=== PATIENT | male | born 1940 | race Caucasian/White ===

== ENCOUNTER 2017-01-19 19:26 | Inpatient (IN) | payer MEDICARE, OTHER ==
[~2017-01-19] VITALS: Ht 167.6 cm; Wt 53.5 kg
[~2017-01-19 19:26] MED LIST: ALBU1.257 NEB; ALPR0.25 PO; ATOR80TA PO; BENZ0.5T3 PO; BISA10SU8 RC; CLOP75TA2 PO; CYAN500T4 GT; DEXT1CAP3 PO; FAMO20TA8 PO; FERR134T2 PO; GABA-532 PO; HYDR-552 PO; HYDR25SU33 RC; INSU100C10 SQ; INSU100V7 SQ; IPRA12.9 IH; MEMA5TAB PO; METO25TA6 PO; MIDO5TAB PO; MULT-1185 PO; NITR0.4T SL; SENN8.6T6 PO; SERT50TA12 PO; [UNRECOGNIZED DRUG - CODE] MC; [UNRECOGNIZED DRUG - CODE] PO
[2017-01-19 20:22] LABS: BASOPHILS % (AUTO) 0.2 % (0.0-2.0); EOSINOPHILS % (AUTO) 0.4 % (0.0-6.0); HEMATOCRIT 22 % (39-51); HEMOGLOBIN 7.2 g/dL (13.5-17.5); LYMPHOCYTES # (AUTO) 1.1 /CMM (0.8-4.8); LYMPHOCYTES % (AUTO) 13.6 % (20.0-44.0); MEAN CORPUSCULAR HEMOGLOBIN 31 PG (26.0-33.0); MEAN CORPUSCULAR HGB CONC 33 g/dl (31.0-36.0); MEAN CORPUSCULAR VOLUME 95 fL (80-96); MONOCYTES # (AUTO) 0.5 /CMM (0.1-1.30); MONOCYTES % (AUTO) 6.7 % (2.0-12.0); NEUTROPHILS # (AUTO) 6.5 /CMM (1.8-8.9); NEUTROPHILS % (AUTO) 79.1 % (43.0-81.0); PLATELET COUNT (AUTO) 199 /CMM (150-450); RDW COEFFICIENT OF VARIATION 17.7 (11.5-15.0); RED BLOOD CELL COUNT(AUTO) 2.32 MIL/uL (4.5-6.0); WHITE BLOOD COUNT (AUTO) 8.1 K/uL (4.3-11.0)
[2017-01-19] MEDS ORDERED: IV NS 0.9% 1,000 ML BAG IV ONE (20:30)
[2017-01-19 20:36] LABS: CALCIUM, SERUM 8.3 mg/dL (8.5-10.1); CARBON DIOXIDE 29 mmol/L (21-32); CHLORIDE 101 mmol/L (98-107); CREATININE 0.9 mg/dL (0.6-1.3); GLUCOSE 183 mg/dL (74-106); POTASSIUM 5.4 mmol/L (3.5-5.1); SODIUM SERUM 136 mmol/L (136-145); UREA NITROGEN, BLOOD 16 mg/dL (7-18)
[2017-01-19 20:41] LABS: BILIRUBIN,TOTAL 0.5 mg/dL (0.2-1.0)
[2017-01-19 20:42] LABS: ALANINE AMINOTRANSFERASE < 6 U/L (12-78); ALKALINE PHOSPHATASE 108 U/L (46-116); ASPARTATE AMINOTRANSFERASE 28 U/L (15-37); TOTAL PROTEIN, SERUM 7.9 g/dL (6.4-8.2)
[2017-01-19 20:48] LABS: INR 1.04 (0.87-1.13); PROTHROMBIN TIME 10.8 SECS (9.5-12.7)
[2017-01-19] MEDS ORDERED: IV SET PRIMARY 1 EA INFUS.SET MC ONE (21:30)
[2017-01-19] MEDS ORDERED: IV NS 0.9% 1,000 ML ONE (21:30)
[2017-01-19] MEDS ORDERED: SET RED CAP 1 EA INFUS.SET MC ONE (23:48)
[2017-01-19] MEDS ORDERED: IV NS 0.9% 250 ML IV ONE (23:50)
[2017-01-19] MEDS ORDERED: BLOOD IV SET 1 EA INFUS.SET MC ONE (23:50)
[2017-01-20] VITALS (18 sets, daily range): BP systolic 87–132; BP diastolic 42–98
[2017-01-20] MEDS ORDERED: ATORVASTATIN 10 MG TABLET ONE (00:12)
[2017-01-20] MEDS ORDERED: ALPRAZOLAM 0.25 MG TABLET ONE (00:12)
[2017-01-20 00:26] LABS: RETICULOCYTE COUNT 6.1 % (0.6-2.5)
[2017-01-20 00:45] LABS: FREE PSA 1.93 ng/mL (0.00-45); PROSTATE SPECIFIC ANTIGEN SCR 12.82 ng/mL (0.00-4.00); THYROID STIMULATING HORMONE 1.539 uIU/mL (0.358-3.74)
[2017-01-20] MEDS ORDERED: ACETAMINOPHEN 325 MG TABLET ONE ×2 (01:04→04:27)
[2017-01-20] MEDS: ACETAMINOPHEN 325 MG TABLET PO PRN ×2 (01:19→05:09)
[2017-01-20 06:51] LABS: CALCIUM, SERUM 8.2 mg/dL (8.5-10.1); CREATININE 0.9 mg/dL (0.6-1.3); POTASSIUM 4.3 mmol/L (3.5-5.1)
[2017-01-20 06:52] LABS: BASOPHILS % (AUTO) 0.3 % (0.0-2.0); EOSINOPHILS % (AUTO) 0.3 % (0.0-6.0); LYMPHOCYTES # (AUTO) 1.6 /CMM (0.8-4.8); MEAN CORPUSCULAR HEMOGLOBIN 33 PG (26.0-33.0); MEAN CORPUSCULAR HGB CONC 35 g/dl (31.0-36.0); MEAN CORPUSCULAR VOLUME 95 fL (80-96); MONOCYTES # (AUTO) 0.6 /CMM (0.1-1.30); MONOCYTES % (AUTO) 6.3 % (2.0-12.0); NEUTROPHILS # (AUTO) 7.8 /CMM (1.8-8.9); NEUTROPHILS % (AUTO) 77.1 % (43.0-81.0); PLATELET COUNT (AUTO) 190 /CMM (150-450); RED BLOOD CELL COUNT(AUTO) 2.13 MIL/uL (4.5-6.0); WHITE BLOOD COUNT (AUTO) 10.1 K/uL (4.3-11.0)
[2017-01-20 06:59] LABS: HEMATOCRIT 20 % (39-51)
[2017-01-20] MEDS: BLOOD SUGAR DIAGNOSTIC 1 EACH STRIP IN SCH ×4 (07:21→21:40)
[2017-01-20] MEDS ORDERED: DIVA250T6 PO (07:39)
[2017-01-20] MEDS ORDERED: AMIN30LI4 PO (07:39)
[2017-01-20] MEDS ORDERED: ATOR10TA PO (07:39)
[2017-01-20] MEDS ORDERED: IPRA0.2S9 IH (07:39)
[2017-01-20] MEDS ORDERED: LORA10TA68 PO (07:39)
[2017-01-20] MEDS ORDERED: GABA-534 PO (07:39)
[2017-01-20] MEDS ORDERED: NA P133E RC (07:39)
[2017-01-20] MEDS ORDERED: CLON0.5T4 PO (07:39)
[2017-01-20] MEDS ORDERED: MAG30ORA PO (07:39)
[2017-01-20] MEDS ORDERED: ACET-2605 PO (07:39)
[2017-01-20] MEDS ORDERED: CALC-108 PO (07:39)
[2017-01-20] MEDS ORDERED: ACET-868 PO (07:39)
[2017-01-20] MEDS ORDERED: ALBU2.5V13 IH (07:39)
[2017-01-20] MEDS ORDERED: ZINC220C8 PO (07:39)
[2017-01-20] MEDS ORDERED: ASCO500T9 PO (07:39)
[2017-01-20] MEDS ORDERED: TRAZ-144 PO (07:39)
[2017-01-20] MEDS: ALPRAZOLAM 0.25 MG TABLET PO PRN (08:36)
[2017-01-20 11:49] LABS: APPEARANCE,URINE CLEAR (CLEAR); BILIRUBIN,URINE NEGATIVE (NEGATIVE); BLOOD, URINE NEGATIVE Ery/uL (NEGATIVE); COLOR,URINE YELLOW (YELLOW); KETONES,URINE NEGATIVE (NEGATIVE); LEUKOCYTE ESTERASE ,URINE NEGATIVE (NEGATIVE); NITRITE, URINE NEGATIVE (NEGATIVE); PROTEIN,URINE NEGATIVE (NEGATIVE); UGLUCOSE NEGATIVE (NEGATIVE); UROBILINOGEN,URINE 0.2 EU/dL (0.2)
[2017-01-20] MEDS ORDERED: MAG HYDROX/AL HYDROX/SIMETH 30 ML UDC PO PRN (12:30)
[2017-01-20] MEDS ORDERED: SENNOSIDES 8.6 MG TABLET PO PRN (12:30)
[2017-01-20] MEDS ORDERED: NA PHOS,M-B/NA PHOS,DI-BA 1 EA ENEMA RC PRN (12:30)
[2017-01-20] MEDS ORDERED: HYDROCODONE/APAP 5/325MG 1 EACH TABLET PO PRN (12:30)
[2017-01-20] MEDS ORDERED: MISCELLANEOUS MED 1 EA EA PO PRN (12:30)
[2017-01-20] MEDS ORDERED: ACETAMINOPHEN 325 MG TABLET PO PRN (12:30)
[2017-01-20] MEDS ORDERED: ACETAMINOPHEN ES 500 MG TABLET PO PRN (12:30)
[2017-01-20] MEDS ORDERED: NITROGLYCERIN 0.4 MG/TAB BOTTLE SL PRN (12:30)
[2017-01-20] MEDS: CLOPIDOGREL BISULFATE 75 MG TABLET PO SCH (13:00)
[2017-01-20] MEDS: GABAPENTIN 300 MG CAPSULE PO SCH ×2 (16:56→17:20)
[2017-01-20] MEDS: DIVALPROEX SODIUM 250 MG TABLET.DR PO SCH (17:20)
[2017-01-20] MEDS: TRAZODONE 50 MG TABLET PO SCH (21:35)
[2017-01-20] MEDS: ATORVASTATIN 10 MG TABLET PO SCH (21:35)
[2017-01-20] MEDS: METOPROLOL TARTRATE 25 MG TABLET PO SCH (21:36)
[2017-01-20] MEDS: clonazePAM 0.5 MG TABLET PO SCH (21:39)
[2017-01-20] MEDS ORDERED: ATORVASTATIN 10 MG TABLET PO SCH (22:00)
[2017-01-21] MEDS: BLOOD SUGAR DIAGNOSTIC 1 EACH STRIP IN SCH ×4 (06:26→21:24)
[2017-01-21 07:30] LABS: BASOPHILS % (AUTO) 0.3 % (0.0-2.0); EOSINOPHILS # (AUTO) 0.3 /CMM (0.0-0.7); EOSINOPHILS % (AUTO) 3.8 % (0.0-6.0); HEMATOCRIT 30 % (39-51); HEMOGLOBIN 10.2 g/dL (13.5-17.5); LYMPHOCYTES # (AUTO) 1.5 /CMM (0.8-4.8); LYMPHOCYTES % (AUTO) 19.1 % (20.0-44.0); MEAN CORPUSCULAR HEMOGLOBIN 31 PG (26.0-33.0); MEAN CORPUSCULAR HGB CONC 35 g/dl (31.0-36.0); MEAN CORPUSCULAR VOLUME 90 fL (80-96); MONOCYTES # (AUTO) 0.6 /CMM (0.1-1.30); MONOCYTES % (AUTO) 7.8 % (2.0-12.0); NEUTROPHILS # (AUTO) 5.4 /CMM (1.8-8.9); PLATELET COUNT (AUTO) 194 /CMM (150-450); RDW COEFFICIENT OF VARIATION 18.6 (11.5-15.0); RED BLOOD CELL COUNT(AUTO) 3.27 MIL/uL (4.5-6.0); WHITE BLOOD COUNT (AUTO) 7.8 K/uL (4.3-11.0)
[2017-01-21 07:51] LABS: CALCIUM, SERUM 8.4 mg/dL (8.5-10.1); CREATININE 0.8 mg/dL (0.6-1.3); POTASSIUM 4.6 mmol/L (3.5-5.1)
[2017-01-21 08:00] VITALS: BP 103/68
[2017-01-21] MEDS: DIVALPROEX SODIUM 250 MG TABLET.DR PO SCH ×2 (08:19→17:34)
[2017-01-21] MEDS: PROSOURCE / PROSTAT (PYXIS) 30 ML UDC PO SCH (08:19)
[2017-01-21] MEDS: CLOPIDOGREL BISULFATE 75 MG TABLET PO SCH (08:20)
[2017-01-21] MEDS: METOPROLOL TARTRATE 25 MG TABLET PO SCH ×2 (08:20→21:00)
[2017-01-21] MEDS: LORATADINE 10 MG TABLET PO SCH (08:21)
[2017-01-21] MEDS: ASCORBIC ACID 500 MG TABLET PO SCH (08:21)
[2017-01-21] MEDS: GABAPENTIN 300 MG CAPSULE PO SCH ×3 (08:21→17:34)
[2017-01-21] MEDS: CALCIUM CARB 250MG /VITAMIN D 1 UDTAB PO SCH (08:21)
[2017-01-21] MEDS: SLOW FE 1 TAB PO SCH (08:21)
[2017-01-21] MEDS: ZINC SULFATE 220 MG CAPSULE PO SCH (08:21)
[2017-01-21] MEDS: FOLIC ACID 1 MG TABLET PO SCH (08:29)
[2017-01-21] MEDS: clonazePAM 0.5 MG TABLET PO SCH ×2 (08:29→21:00)
[2017-01-21 08:58] LABS: CARCINOEMBRYONIC AG (CEA) 2.9 ng/mL (0.0-4.7)
[2017-01-21] MEDS ORDERED: PROSOURCE / PROSTAT (PYXIS) 30 ML UDC GT SCH (09:00)
[2017-01-21] MEDS ORDERED: IV NS 0.9% 250 ML IV ONE (10:15)
[2017-01-21] MEDS ORDERED: IOHEXOL-300 100 ML VIAL IV ONE (10:15)
[2017-01-21] MEDS ORDERED: CT SWABBABLE VALVE TRANS SET 1 EA INFUS.SET MC ONE (10:15)
[2017-01-21 16:00] VITALS: BP 98/56
[2017-01-21] MEDS: ALPRAZOLAM 0.25 MG TABLET PO PRN (17:34)
[2017-01-21] MEDS: MUPIROCIN OINT 2% 22 GM TUBE SCH ×2 (17:37→21:35)
[2017-01-21] MEDS ORDERED: DEXTROSE 50%-WATER 50 ML DISP.SYRIN IV PRN (18:30)
[2017-01-21 20:00] VITALS: BP 99/59
[2017-01-21 20:10] VITALS: BP 99/59
[2017-01-21] MEDS: INSULIN REGULAR, HUMAN 100 UNIT/ML 3 ML VIAL SQ PRN (21:21)
[2017-01-21] MEDS: ATORVASTATIN 10 MG TABLET PO SCH (21:25)
[2017-01-21] MEDS: TRAZODONE 50 MG TABLET PO SCH (21:27)
[2017-01-22] MEDS: BLOOD SUGAR DIAGNOSTIC 1 EACH STRIP IN SCH ×4 (07:02→21:34)
[2017-01-22 08:00] VITALS: BP_SYST 106; BP_DIAS 58; BP_DIAS 59
[2017-01-22] MEDS: METOPROLOL TARTRATE 25 MG TABLET PO SCH ×2 (08:22→21:00)
[2017-01-22] MEDS: GABAPENTIN 300 MG CAPSULE PO SCH ×3 (09:24→17:47)
[2017-01-22] MEDS: ZINC SULFATE 220 MG CAPSULE PO SCH (09:24)
[2017-01-22] MEDS: CLOPIDOGREL BISULFATE 75 MG TABLET PO SCH (09:24)
[2017-01-22] MEDS: clonazePAM 0.5 MG TABLET PO SCH ×2 (09:24→21:25)
[2017-01-22] MEDS: LORATADINE 10 MG TABLET PO SCH (09:24)
[2017-01-22] MEDS: Z GUARD REMEDY 2 OZ OINT TP SCH ×2 (09:24→12:36)
[2017-01-22] MEDS: ASCORBIC ACID 500 MG TABLET PO SCH (09:24)
[2017-01-22] MEDS: CALCIUM CARB 250MG /VITAMIN D 1 UDTAB PO SCH (09:24)
[2017-01-22] MEDS: FOLIC ACID 1 MG TABLET PO SCH (09:24)
[2017-01-22] MEDS: PROSOURCE / PROSTAT (PYXIS) 30 ML UDC PO SCH (09:24)
[2017-01-22] MEDS: DIVALPROEX SODIUM 250 MG TABLET.DR PO SCH ×2 (09:24→17:47)
[2017-01-22] MEDS: SLOW FE 1 TAB PO SCH (09:24)
[2017-01-22] MEDS: MUPIROCIN OINT 2% 22 GM TUBE SCH ×2 (09:31→21:26)
[2017-01-22] MEDS: IPRATROPIUM NEB FS 0.5 MG/2.5 ML AMPUL.NEB IH PRN (10:45)
[2017-01-22] MEDS: ALBUTEROL FS 2.5 MG/0.5 ML VIAL.NEB IH PRN (10:45)
[2017-01-22] MEDS: ALPRAZOLAM 0.25 MG TABLET PO PRN (12:33)
[2017-01-22] MEDS: INSULIN REGULAR, HUMAN 100 UNIT/ML 3 ML VIAL SQ PRN ×2 (12:35→21:35)
[2017-01-22 16:00] VITALS: BP 98/56
[2017-01-22 16:05] VITALS: BP 105/65
[2017-01-22 16:07] VITALS: BP_SYST 105; BP_SYST 98; BP_DIAS 56; BP_DIAS 65
[2017-01-22 20:00] VITALS: BP 108/55
[2017-01-22] MEDS: TRAZODONE 50 MG TABLET PO SCH (21:25)
[2017-01-22] MEDS: ATORVASTATIN 10 MG TABLET PO SCH (21:25)
[2017-01-23] MEDS: BLOOD SUGAR DIAGNOSTIC 1 EACH STRIP IN SCH ×4 (06:38→21:45)
[2017-01-23 08:00] VITALS: BP 123/76
[2017-01-23] MEDS: Z GUARD REMEDY 2 OZ OINT TP SCH (08:49)
[2017-01-23] MEDS: LORATADINE 10 MG TABLET PO SCH (08:52)
[2017-01-23] MEDS: DIVALPROEX SODIUM 250 MG TABLET.DR PO SCH ×2 (08:53→17:01)
[2017-01-23] MEDS: ZINC SULFATE 220 MG CAPSULE PO SCH (08:53)
[2017-01-23] MEDS: ASCORBIC ACID 500 MG TABLET PO SCH (08:53)
[2017-01-23] MEDS: clonazePAM 0.5 MG TABLET PO SCH ×2 (08:53→21:35)
[2017-01-23] MEDS: CALCIUM CARB 250MG /VITAMIN D 1 UDTAB PO SCH (08:53)
[2017-01-23] MEDS: FOLIC ACID 1 MG TABLET PO SCH (08:53)
[2017-01-23] MEDS: SLOW FE 1 TAB PO SCH (08:53)
[2017-01-23] MEDS: CLOPIDOGREL BISULFATE 75 MG TABLET PO SCH (08:53)
[2017-01-23] MEDS: GABAPENTIN 300 MG CAPSULE PO SCH ×3 (08:53→17:00)
[2017-01-23] MEDS: PROSOURCE / PROSTAT (PYXIS) 30 ML UDC PO SCH (08:53)
[2017-01-23] MEDS: METOPROLOL TARTRATE 25 MG TABLET PO SCH ×2 (08:54→21:00)
[2017-01-23] MEDS: MUPIROCIN OINT 2% 22 GM TUBE SCH ×2 (08:59→21:36)
[2017-01-23] MEDS: IPRATROPIUM NEB FS 0.5 MG/2.5 ML AMPUL.NEB IH PRN (10:27)
[2017-01-23] MEDS: ALBUTEROL FS 2.5 MG/0.5 ML VIAL.NEB IH PRN (10:28)
[2017-01-23] MEDS: INSULIN REGULAR, HUMAN 100 UNIT/ML 3 ML VIAL SQ PRN ×2 (12:33→21:47)
[2017-01-23 16:00] VITALS: BP 142/62
[2017-01-23 19:52] VITALS: BP 110/63
[2017-01-23] MEDS: ATORVASTATIN 10 MG TABLET PO SCH (21:34)
[2017-01-23] MEDS: TRAZODONE 50 MG TABLET PO SCH (21:35)
[2017-01-24] MEDS: ALPRAZOLAM 0.25 MG TABLET PO PRN (00:04)
[2017-01-24] MEDS: IPRATROPIUM NEB FS 0.5 MG/2.5 ML AMPUL.NEB IH PRN ×2 (03:14→15:59)
[2017-01-24] MEDS: ALBUTEROL FS 2.5 MG/0.5 ML VIAL.NEB IH PRN ×2 (03:14→16:00)
[2017-01-24] MEDS: BLOOD SUGAR DIAGNOSTIC 1 EACH STRIP IN SCH ×2 (07:04→12:19)
[2017-01-24] MEDS: INSULIN REGULAR, HUMAN 100 UNIT/ML 3 ML VIAL SQ PRN (07:07)
[2017-01-24 08:00] VITALS: BP 115/68
[2017-01-24 09:00] VITALS: BP 115/68
[2017-01-24] MEDS: METOPROLOL TARTRATE 25 MG TABLET PO SCH (09:00)
[2017-01-24] MEDS: PROSOURCE / PROSTAT (PYXIS) 30 ML UDC PO SCH (09:03)
[2017-01-24] MEDS: MUPIROCIN OINT 2% 22 GM TUBE SCH (09:03)
[2017-01-24] MEDS: ASCORBIC ACID 500 MG TABLET PO SCH (09:04)
[2017-01-24] MEDS: clonazePAM 0.5 MG TABLET PO SCH (09:04)
[2017-01-24] MEDS: ZINC SULFATE 220 MG CAPSULE PO SCH (09:04)
[2017-01-24] MEDS: CLOPIDOGREL BISULFATE 75 MG TABLET PO SCH (09:04)
[2017-01-24] MEDS: CALCIUM CARB 250MG /VITAMIN D 1 UDTAB PO SCH (09:04)
[2017-01-24] MEDS: LORATADINE 10 MG TABLET PO SCH (09:04)
[2017-01-24] MEDS: GABAPENTIN 300 MG CAPSULE PO SCH ×2 (09:04→12:17)
[2017-01-24] MEDS: FOLIC ACID 1 MG TABLET PO SCH (09:04)
[2017-01-24] MEDS: DIVALPROEX SODIUM 250 MG TABLET.DR PO SCH (09:04)
[2017-01-24] MEDS: SLOW FE 1 TAB PO SCH (09:04)
== END 2017-01-24 16:15 | DRG 812 ==
LOC: ER 19:28 → TELE 22:02 → MED 22:12
PROVIDERS: ADMIT Internal Medicine Nephrology; ATTEND Internal Medicine Nephrology
PROC: 30233N1 Transfusion of Nonautologous Red Blood Cells into Peripheral Vein, Percutaneous Approach (ICD-10-PCS; principal; 2017-01-20)
DX: D52.9 Folate deficiency anemia, unspecified (principal); G81.90 Hemiplegia, unspecified affecting unspecified side; E44.1 Mild protein-calorie malnutrition; Z68.1 Body mass index [BMI] 19.9 or less, adult; I25.10 Atherosclerotic heart disease of native coronary artery without angina pectoris; J44.9 Chronic obstructive pulmonary disease, unspecified; E78.5 Hyperlipidemia, unspecified; E11.9 Type 2 diabetes mellitus without complications; I10 Essential (primary) hypertension; F02.80 Dementia in other diseases classified elsewhere, unspecified severity, without behavioral disturbance, psychotic disturbance, mood disturbance, and anxiety; G20 Parkinson's disease; D63.8 Anemia in other chronic diseases classified elsewhere; R53.1 Weakness; F32.9 Major depressive disorder, single episode, unspecified; G40.909 Epilepsy, unspecified, not intractable, without status epilepticus; E78.00 Pure hypercholesterolemia, unspecified; Z79.899 Other long term (current) drug therapy; Z95.1 Presence of aortocoronary bypass graft; I73.9 Peripheral vascular disease, unspecified; I65.23 Occlusion and stenosis of bilateral carotid arteries
CPT/HCPCS: 36415; 71010-TC; 71270-TC; 72194-TC; 74170-TC; 80048-TC; 80076-TC; 81000-TC; 82272-TC; 82306; 82378; 82728-TC; 82746; 82962-TC; 83010; 83540-TC; 83615-TC; 84153-TC; 84154-TC; 84443-TC; 84550-TC; 85025-TC; 85045-TC; 85652-TC; 85730-TC; 86850-TC; 86921-TC; 87040-TC; 87081-TC; 87086-TC; 92611-TC; 94799-TC; 97001-TC; 97110-TC; 97112-TC; 97530-TC; A4606; J1815; J7030; J7050; P9016-BL; Q9967; Z7610

== ENCOUNTER 2017-09-05 12:36 | Inpatient (IN) | payer MEDICARE, OTHER ==
[~2017-09-05] VITALS: Ht 167.6 cm; Wt 62.6 kg
[2017-09-05] VITALS (13 sets, daily range): BP systolic 74–141; BP diastolic 42–68
[~2017-09-05 12:36] MED LIST changes: +ACET-2605 PO; +ACET-868 PO; -ALBU1.257 NEB; +ALBU2.5V13 IH; -ALPR0.25 PO; +AMIN30LI4 PO; +ASCO500T9 PO; +ATOR10TA PO; -ATOR80TA PO; -BENZ0.5T3 PO; -BISA10SU8 RC; +CALC-261 PO; +CLON0.5T4 PO; +CLOP75TA15 PO; -CLOP75TA2 PO; -CYAN500T4 GT; -DEXT1CAP3 PO; +DIVA250T6 PO; -FAMO20TA8 PO; -GABA-532 PO; +GABA-534 PO; -HYDR25SU33 RC; -INSU100C10 SQ; -INSU100V7 SQ; +IPRA0.2S9 IH; -IPRA12.9 IH; +LORA10TA68 PO; +MAG30ORA PO; -MEMA5TAB PO; -MIDO5TAB PO; -MULT-1185 PO; +NA P133E RC; +SENN-167 PO; -SENN8.6T6 PO; -SERT50TA12 PO; +TRAZ-144 PO; +ZINC220C8 PO; -[UNRECOGNIZED DRUG - CODE] MC; -[UNRECOGNIZED DRUG - CODE] PO
--- NOTE | 2017-09-05 12:41 | NUR ---
BIBRA FROM SCR DT SOB. PER REPORT PT WAS STING 88% ON ROOM AIR,. PATIENT IS AWAKE AND ALERT, RECEIVED ON NON REBRETHER SATING 95%. PATIENT NOTED WITH WITH AUDIBLE RALES/ WHEEZING. SKIN IS WARM TO TOUCH AND NON DIAPHORETIC. AFEBRILE. VSS
--- NOTE | 2017-09-05 12:58 | NUR ---
PT. PLACED ON BIPAP DUE TO INCREASED WOB. BIPAP PARAMETERS BELLOW SET ORDER: [id number] EPAP 8 RATE 10 FIO2 100% B/S DIMINISHED BILATERAL. Addendum: 09/05/17 at 1259 by CIREA SOLANO RT Amended: Links added.
[2017-09-05] MEDS ORDERED: DEXAMETHASONE SOD PHOSPHATE 4 MG/ML VIAL IV ONE (13:00)
[2017-09-05] MEDS ORDERED: IPRATROPIUM NEB FS 0.5 MG/2.5 ML AMPUL.NEB NEB ONE (13:00)
[2017-09-05] MEDS ORDERED: ALBUTEROL FS 2.5 MG/0.5 ML VIAL.NEB NEB ONE (13:00)
[2017-09-05] MEDS ORDERED: Magnesium 1GM/D5W 100ML PREMIX 100 ML IV ONE ×2 (13:01→14:01)
[2017-09-05] MEDS ORDERED: DEXAMETHASONE SOD PHOSPHATE 10 MG/ML VIAL ONE (13:02)
[2017-09-05] MEDS ORDERED: IPRATROPIUM NEB FS 0.5 MG/2.5 ML AMPUL.NEB ONE (13:04)
[2017-09-05] MEDS ORDERED: ALBUTEROL FS 2.5 MG/3 ML VIAL.NEB ONE (13:04)
[2017-09-05] MEDS: Magnesium 1GM/D5W 100ML PREMIX 100 ML IV SCH ×2 (13:08→14:00)
[2017-09-05 13:22] LABS: BASOPHILS % (AUTO) 0.4 % (0.0-2.0); EOSINOPHILS # (AUTO) 0.1 /CMM (0.0-0.7); EOSINOPHILS % (AUTO) 0.7 % (0.0-6.0); HEMATOCRIT 41 % (39-51); HEMOGLOBIN 13.8 g/dL (13.5-17.5); LYMPHOCYTES # (AUTO) 1.5 /CMM (0.8-4.8); LYMPHOCYTES % (AUTO) 13.4 % (20.0-44.0); MEAN CORPUSCULAR HEMOGLOBIN 31 PG (26.0-33.0); MEAN CORPUSCULAR HGB CONC 34 g/dl (31.0-36.0); MEAN CORPUSCULAR VOLUME 93 fL (80-96); MONOCYTES # (AUTO) 0.6 /CMM (0.1-1.30); MONOCYTES % (AUTO) 5.2 % (2.0-12.0); NEUTROPHILS # (AUTO) 9.2 /CMM (1.8-8.9); NEUTROPHILS % (AUTO) 80.3 % (43.0-81.0); PLATELET COUNT (AUTO) 218 /CMM (150-450); RED BLOOD CELL COUNT(AUTO) 4.43 MIL/uL (4.5-6.0); WHITE BLOOD COUNT (AUTO) 11.4 K/uL (4.3-11.0)
[2017-09-05 13:35] LABS: CALCIUM, SERUM 8.9 mg/dL (8.5-10.1); CARBON DIOXIDE 32 mmol/L (21-32); CHLORIDE 100 mmol/L (98-107); CREATININE 1.1 mg/dL (0.6-1.3); GLUCOSE 263 mg/dL (74-106); POTASSIUM 4.4 mmol/L (3.5-5.1); SODIUM SERUM 138 mmol/L (136-145); UREA NITROGEN, BLOOD 17 mg/dL (7-18)
[2017-09-05 13:40] LABS: INR 1.11 (0.87-1.13); PROTHROMBIN TIME 11.6 SECS (9.5-12.7); TROPONIN I < 0.017 ng/mL (0.00-0.056)
[2017-09-05 13:46] LABS: ALANINE AMINOTRANSFERASE 16 U/L (12-78); ALKALINE PHOSPHATASE 75 U/L (46-116); ASPARTATE AMINOTRANSFERASE 7 U/L (15-37); B-TYPE NATRIURETIC PEPTIDE 546 PG/ML (0-125); BILIRUBIN,DIRECT 0.1 mg/dL (0.0-0.2); BILIRUBIN,TOTAL 0.4 mg/dL (0.2-1.0); TOTAL PROTEIN, SERUM 8.6 g/dL (6.4-8.2)
[2017-09-05] MEDS ORDERED: ACETAMINOPHEN ES 500 MG TABLET ONE (14:03)
--- NOTE | 2017-09-05 14:28 | NUR ---
DR. IRWIN AT BEDSIDE
--- NOTE | 2017-09-05 14:38 | NUR ---
18 100 rate 10 bipap
[2017-09-05 14:49] LABS: ABG BASE EXCESS 0.4 mmol/L; ABG PCO2 46.5 mmHg (35.0-45.0); ABG PH 7.368 (7.350-7.450); ABG PO2 271.1 mmHg (75.0-100.0); AaDO2 395.4 mmHg; COHb 0.6 % (0.5-1.5); MetHb 0.4 % (0.0-1.5); PEEP,BG 8 cm H2O; SITE, ABG Right Radial; VENT MODE, BG 18/8 100%
[2017-09-05] MEDS ORDERED: BISA10SU8 RC (14:52)
[2017-09-05] MEDS ORDERED: METF500T4 PO (14:52)
[2017-09-05] MEDS ORDERED: PANT40TA2 PO (14:52)
[2017-09-05] MEDS ORDERED: ESCI10TA PO (14:52)
[2017-09-05] MEDS ORDERED: FOLI1TAB16 PO (14:52)
[2017-09-05] MEDS ORDERED: AMIT25TA9 PO (14:52)
[2017-09-05] MEDS ORDERED: ZOLP10TA6 PO (14:52)
[2017-09-05] MEDS ORDERED: MAGN400O6 PO (14:52)
[2017-09-05] MEDS ORDERED: MELA10CA PO (14:52)
--- NOTE | 2017-09-05 15:33 | NUR ---
PATIENT STRONGLY REFUSED SECOND IV INSERTION. MD RIVAS
--- NOTE | 2017-09-05 15:48 | NUR ---
MACERATOR OPERATOR RECEIVED PATIENT FROM THE ER ON A GURNEY. NO ACUTE DISTRESS. STABLE VITAL SINGS. SINUS TACH ON MONITOR. ALERT AND ORIENTED X 3. FAMILY AT BEDSIDE. SEEN BY CASHIERS SUPERVISOR. AFEBRILE. WILL CONTINUE TO MONITOR AND PROVIDE CARE.
--- NOTE | 2017-09-05 15:49 | NUR ---
PATIENT TRANSPORTED TO ICU. VSS
[2017-09-05] MEDS ORDERED: ZOLPIDEM TARTRATE 5 MG TABLET PO PRN (16:00)
[2017-09-05] MEDS ORDERED: MAGNESIUM HYDROXIDE 30 ML UDC PO PRN (16:00)
[2017-09-05] MEDS ORDERED: HYDROCODONE/APAP 5/325MG 1 EACH TABLET PO PRN (16:00)
[2017-09-05] MEDS ORDERED: MAG HYDROX/AL HYDROX/SIMETH 30 ML UDC PO PRN (16:00)
[2017-09-05] MEDS ORDERED: Z GUARD REMEDY 2 OZ OINT TP PRN (16:00)
[2017-09-05] MEDS ORDERED: ONDANSETRON HCL/PF 4 MG/2 ML VIAL IVP PRN (16:00)
[2017-09-05] MEDS ORDERED: FUROSEMIDE 40 MG/4 ML VIAL IV ONE (16:00)
[2017-09-05] MEDS ORDERED: ACETAMINOPHEN 325 MG TABLET PO PRN (16:00)
[2017-09-05] MEDS ORDERED: MORPHINE SULFATE INJ 4 MG/ML DISP.SYRIN IV PRN (17:00)
[2017-09-05] MEDS ORDERED: FEE PK DOSING 1 MIN EA MC ONE (17:04)
[2017-09-05] MEDS: IPRATROPIUM NEB FS 0.5 MG/2.5 ML AMPUL.NEB NEB SCH ×2 (17:09→20:16)
[2017-09-05] MEDS: ALBUTEROL HALF STRENGTH 1.25 MG/3 ML VIAL.NEB NEB SCH ×2 (17:09→20:16)
[2017-09-05] MEDS: IV D5/ 0.9% NACL 1,000 ML IV PRN (17:34)
[2017-09-05] MEDS: methylPREDNISolone SOD SUCC 125 MG/2ML VIAL IV SCH ×2 (17:45→21:38)
[2017-09-05] MEDS: VANCOMYCIN 0.75 GM in IV D5W 250 ML IV SCH (19:12)
[2017-09-05] MEDS ORDERED: IV NS 0.9% 500 ML IV STA (19:54)
[2017-09-05] MEDS: LEVOFLOXACIN 750 MG /D5W 150ML 150 ML IV SCH (20:45)
[2017-09-05] MEDS: ZOSYN IVPB 3.375 G in IV D5W 50ml IV SCH (20:46)
[2017-09-05] MEDS ORDERED: IV NS 0.9% 500 ML IV ONE ×2 (21:00→23:00)
[2017-09-06] VITALS (43 sets, daily range): BP systolic 81–137; BP diastolic 42–66
[2017-09-06] MEDS: ALBUTEROL HALF STRENGTH 1.25 MG/3 ML VIAL.NEB NEB SCH ×7 (00:06→23:11)
[2017-09-06] MEDS: IPRATROPIUM NEB FS 0.5 MG/2.5 ML AMPUL.NEB NEB SCH ×7 (00:06→23:11)
[2017-09-06] MEDS: ZOSYN IVPB 3.375 G in IV D5W 50ml IV SCH ×4 (01:27→17:10)
[2017-09-06] MEDS ORDERED: NOREPINEPHRINE 4 MG/4 ML AMPUL IV ONE (01:59)
[2017-09-06] MEDS ORDERED: NOREPINEPHRINE 8 MG in IV D5W 500 ML IV PRN ×5 (02:00→18:00)
[2017-09-06 05:46] LABS: BASOPHILS % (AUTO) 0.1 % (0.0-2.0); HEMATOCRIT 34 % (39-51); HEMOGLOBIN 11.6 g/dL (13.5-17.5); LYMPHOCYTES # (AUTO) 0.7 /CMM (0.8-4.8); LYMPHOCYTES % (AUTO) 5.6 % (20.0-44.0); MEAN CORPUSCULAR HEMOGLOBIN 31 PG (26.0-33.0); MEAN CORPUSCULAR HGB CONC 34 g/dl (31.0-36.0); MEAN CORPUSCULAR VOLUME 92 fL (80-96); MONOCYTES # (AUTO) 0.2 /CMM (0.1-1.30); NEUTROPHILS % (AUTO) 92.3 % (43.0-81.0); PLATELET COUNT (AUTO) 193 /CMM (150-450); RDW COEFFICIENT OF VARIATION 15.1 (11.5-15.0); RED BLOOD CELL COUNT(AUTO) 3.71 MIL/uL (4.5-6.0); WHITE BLOOD COUNT (AUTO) 11.9 K/uL (4.3-11.0)
[2017-09-06 05:58] LABS: INR 1.15 (0.87-1.13)
[2017-09-06 06:06] LABS: ALANINE AMINOTRANSFERASE 17 U/L (12-78); ALBUMIN 2.3 g/dL (3.4-5.0); ALKALINE PHOSPHATASE 56 U/L (46-116); AMYLASE 25 U/L (25-115); ASPARTATE AMINOTRANSFERASE 12 U/L (15-37); BILIRUBIN,TOTAL 0.5 mg/dL (0.2-1.0); CALCIUM, SERUM 7.8 mg/dL (8.5-10.1); CARBON DIOXIDE 24 mmol/L (21-32); CHLORIDE 105 mmol/L (98-107); LIPASE 75 U/L (73-393); MAGNESIUM 1.9 mg/dL (1.8-2.4); PHOSPHORUS 1.7 mg/dL (2.5-4.9); POTASSIUM 4.2 mmol/L (3.5-5.1); SODIUM SERUM 138 mmol/L (136-145); TOTAL PROTEIN, SERUM 7.1 g/dL (6.4-8.2); UREA NITROGEN, BLOOD 18 mg/dL (7-18)
[2017-09-06 06:16] LABS: CHOLESTEROL 143 mg/dL (<200); CREATINE KINASE MB 1.2 ng/mL (0-3.6); HDL CHOLESTEROL 37 mg/dL (40-60); LDL 93 mg/dL (0-99); THYROID STIMULATING HORMONE 0.514 uIU/mL (0.358-3.74); TRIGLYCERIDES 73 mg/dL (30-150)
[2017-09-06] MEDS: methylPREDNISolone SOD SUCC 125 MG/2ML VIAL IV SCH ×3 (06:16→20:58)
[2017-09-06] MEDS: VANCOMYCIN 0.75 GM in IV D5W 250 ML IV SCH ×2 (06:19→17:10)
[2017-09-06 06:24] LABS: GLUCOSE 422 mg/dL (74-106)
[2017-09-06 07:05] LABS: IRON, SERUM 20 ug/dl (50-175); TOTAL IRON BINDING CAPACITY 171 ug/dl (250-450)
[2017-09-06] MEDS ORDERED: DEXTROSE 50%-WATER 50 ML DISP.SYRIN IV PRN (07:30)
--- NOTE | 2017-09-06 07:45 | NUR ---
ICU/RN PT IS IN THE BED ON 5L N/C SAT O2-100%.ON LEVOPHED AT 3MCG.AFEBRILE.NO PAIN REPORTED AT THIS TIME.[id number].INCONTINENT DIAPER IS ON.REDNESS ON KRYSTEN AREA AND LOWER BACK NOTED.PT IS AWAKE,ALERT AND XOGYCMSP-4-0.REPOSITION FOR COMFORT.
[2017-09-06] MEDS: PANTOPRAZOLE 40 MG TABLET.DR PO SCH (08:34)
[2017-09-06] MEDS: BLOOD SUGAR DIAGNOSTIC 1 EACH STRIP VI SCH ×4 (08:34→21:27)
[2017-09-06] MEDS: *INSULIN REGULAR(HUMULIN R)HUM 100 UNIT/ML VIAL SQ PRN ×3 (08:36→21:24)
--- NOTE | 2017-09-06 09:10 | NUR ---
ICU/RN DUE MEDS ARE GIVEN ORDERED.PT PLACED ON 3L N/C SAT O2-100%.PT EATS 50% FROM HIS MEAL TRAY.CONTINUE MONITORING.
[2017-09-06] MEDS: IV D5/ 0.9% NACL 1,000 ML IV PRN (11:35)
[2017-09-06] MEDS ORDERED: K PHOS NEUTRAL 250 MG TABLET PO ONE (14:30)
[2017-09-06] MEDS: IV NS 0.9% 1,000 ML IV PRN (14:35)
[2017-09-06] MEDS: CLOPIDOGREL BISULFATE 75 MG TABLET PO SCH (14:43)
[2017-09-06] MEDS: INSULIN REGULAR, HUMAN 100 UNIT/ML 3 ML VIAL SQ PRN (18:29)
[2017-09-06] MEDS: clonazePAM 0.5 MG TABLET PO SCH (20:58)
[2017-09-06] MEDS: ZOLPIDEM TARTRATE 10 MG TABLET PO PRN (21:27)
[2017-09-06] MEDS: ATORVASTATIN 10 MG TABLET PO SCH (21:27)
[2017-09-07] VITALS (36 sets, daily range): BP systolic 83–145; BP diastolic 47–82
[2017-09-07] MEDS: ZOSYN IVPB 3.375 G in IV D5W 50ml IV SCH ×2 (00:28→05:21)
[2017-09-07] MEDS: IPRATROPIUM NEB FS 0.5 MG/2.5 ML AMPUL.NEB NEB SCH ×6 (03:12→23:48)
[2017-09-07] MEDS: ALBUTEROL HALF STRENGTH 1.25 MG/3 ML VIAL.NEB NEB SCH ×6 (03:13→23:48)
[2017-09-07] MEDS: methylPREDNISolone SOD SUCC 125 MG/2ML VIAL IV SCH ×3 (04:58→20:36)
[2017-09-07 05:18] LABS: HEMATOCRIT 31 % (39-51); HEMOGLOBIN 10.7 g/dL (13.5-17.5); LYMPHOCYTES # (AUTO) 0.7 /CMM (0.8-4.8); LYMPHOCYTES % (AUTO) 6.5 % (20.0-44.0); MEAN CORPUSCULAR HEMOGLOBIN 32 PG (26.0-33.0); MEAN CORPUSCULAR HGB CONC 34 g/dl (31.0-36.0); MEAN CORPUSCULAR VOLUME 92 fL (80-96); MONOCYTES # (AUTO) 0.4 /CMM (0.1-1.30); MONOCYTES % (AUTO) 3.7 % (2.0-12.0); NEUTROPHILS # (AUTO) 9.8 /CMM (1.8-8.9); NEUTROPHILS % (AUTO) 89.8 % (43.0-81.0); PLATELET COUNT (AUTO) 159 /CMM (150-450); RDW COEFFICIENT OF VARIATION 15.1 (11.5-15.0); RED BLOOD CELL COUNT(AUTO) 3.38 MIL/uL (4.5-6.0); WHITE BLOOD COUNT (AUTO) 10.9 K/uL (4.3-11.0)
[2017-09-07 05:42] LABS: CALCIUM, SERUM 7.8 mg/dL (8.5-10.1); CARBON DIOXIDE 28 mmol/L (21-32); CHLORIDE 107 mmol/L (98-107); CREATININE 0.9 mg/dL (0.6-1.3); GLUCOSE 255 mg/dL (74-106); MAGNESIUM 2.1 mg/dL (1.8-2.4); SODIUM SERUM 142 mmol/L (136-145); UREA NITROGEN, BLOOD 19 mg/dL (7-18)
[2017-09-07] MEDS: VANCOMYCIN 0.75 GM in IV D5W 250 ML IV SCH ×2 (06:14→17:19)
--- NOTE | 2017-09-07 06:45 | NUR ---
INSTRUMENT ASSEMBLY SUPERVISOR - SHANNEN GTT. HAS BEEN ON HOLD SINCE 2 AM. SBP'S ARE WNL. NO S/S OF PAIN OR DISTRESS. PT. WAS ADM. A COMPLETE BEDBATH AT 5 A.M. DUE TO HUGE BM. PT.IS DIAPERED. GOOD APPETITE. PT.REMAINS ON O2/3L/NC. PT. CAN EXPRESS NEEDS & WANTS/USES CALL DICKENS. PT'S PHONED AT 2200 LAST NIGHT FOR STATUS UPDATE. S/U GIVEN OVER PHONE. DID MENTION THAT PT. HAS BEEN A SMOKER FOR OVER 60 YRS & STILL SMOKES. VANCO TROUGH AT "13"-VANCO IVPB GIVEN. AFEBRILE. NO EDEMA. ALL PULSES PALPABLE X 4 EXT. RUE PICC LINE HAS ALL PORTS PATENT TO FLUSH W/0.9%NS INFUSING AT 50CC/HR. CONT.POC.
[2017-09-07] MEDS: PANTOPRAZOLE 40 MG TABLET.DR PO SCH (07:48)
[2017-09-07] MEDS: BLOOD SUGAR DIAGNOSTIC 1 EACH STRIP VI SCH ×4 (07:48→21:13)
--- NOTE | 2017-09-07 08:00 | NUR ---
AWAKE, ALERT AND VERBALLY RESPONSIVE. ABLE TO MAKE NEEDS KNOWN. NO CP DISTRESS NOTED. OFF LEVOPHED WITH BP STABLE.
[2017-09-07] MEDS: CLOPIDOGREL BISULFATE 75 MG TABLET PO SCH (08:37)
[2017-09-07] MEDS: ESCITALOPRAM OXALATE (10 MG) 10 MG TABLET PO SCH (08:37)
[2017-09-07] MEDS: clonazePAM 0.5 MG TABLET PO SCH ×2 (08:37→20:36)
[2017-09-07] MEDS: FOLIC ACID 1 MG TABLET PO SCH (08:37)
[2017-09-07] MEDS: GABAPENTIN 300 MG CAPSULE PO SCH ×3 (08:37→16:56)
--- NOTE | 2017-09-07 09:30 | NUR ---
PATIENT SEEN AND EXAMINED BY DR. HUTCHISON-PATIENT OKAY TO TRANSFER TO TELE PER MD.
--- NOTE | 2017-09-07 12:00 | NUR ---
NO SIGNIFICANT CHANGES. BP STABLE. NO SOB NOTED. OCCASIONAL COARSE COUGH NOTED. DESTAS TO 84% OFF O2.
[2017-09-07] MEDS: INSULIN REGULAR, HUMAN 100 UNIT/ML 3 ML VIAL SQ PRN ×3 (13:04→21:12)
--- NOTE | 2017-09-07 16:00 | NUR ---
NO BED AVAILABLE FOR TELE TRANSFER. SBP>120. SB AT 50'S. NO VERBAL COMPLAINTS OF PAIN / DISCOMFORT. INCONTINENT OF BLADDER FUNCTION. SKIN CARE PROVIDED EACH PERIOD OF INCONTINENCE. SKIN INTACT WITHOUT BREAKDOWN.
[2017-09-07] MEDS: IV NS 0.9% 1,000 ML IV PRN (17:59)
[2017-09-07] MEDS: LACTOBACILLUS RHAMNOSUS GG 1 EACH CAP.SPRINK PO SCH (18:03)
--- NOTE | 2017-09-07 18:30 | NUR ---
NO CHANGES. BS 238-6 UNITS REGULAR INSULIN SQ PER SS. ATE 100% OF DINNER.
[2017-09-07] MEDS: LEVOFLOXACIN 750 MG /D5W 150ML 150 ML IV SCH (20:36)
[2017-09-07] MEDS: ATORVASTATIN 10 MG TABLET PO SCH (21:04)
[2017-09-07] MEDS: ZOLPIDEM TARTRATE 10 MG TABLET PO PRN (21:44)
--- NOTE | 2017-09-07 22:57 | NUR ---
STAFF RN - REC'D PT. A&O X3, VSS, AFEABRILE. PT.IS ON O2/3L/NC W/O2 SATS >92%. PT. WAS ADM. A PARTIAL BEDBATH AT 22:00. ADULT DIAPER CHANGED. PT.IS INCONTINENT. RUE PICC LINE-TL, HAS 0.9%NS INFUSING AT 50CC/HR VIA RIZZO PUMP. AMBIEN 10 MG/PO ADM AT 22:00 PER PT. REQUEST. PT. HAS A BED READY/TELE STATUS. RM#[id number] 2. CONT. POC.
--- NOTE | 2017-09-07 23:45 | NUR ---
SAP PORTAL CONSULTANT NOTES: RECEIVED PT FROM ICU NURSE. PT IS ON 3LPM VIA NC AND IS TOLERATING WELL. PT HAS R UPPER EXTREMITY PICC LINE TRIPLE LUMEN SITE BEING INFUSED WITH NS AT 50ML/HR. PT TO BE PLACED ON TELE BOX. HOB ON SEMI ZIMMERMAN'S POSITION. CALL LIGHT WITHIN PT'S REACH. BED KEPT IN LOW, LOCKED POSITION, AND SIDE RAILS X 2UP. WILL CONTINUE TO MONITOR PT.
[2017-09-08] VITALS: BP 102/63
[2017-09-08] MEDS: ALBUTEROL HALF STRENGTH 1.25 MG/3 ML VIAL.NEB NEB SCH ×6 (03:43→23:30)
[2017-09-08] MEDS: IPRATROPIUM NEB FS 0.5 MG/2.5 ML AMPUL.NEB NEB SCH ×6 (03:43→23:30)
[2017-09-08 04:00] VITALS: BP 139/73
[2017-09-08] MEDS: VANCOMYCIN 0.75 GM in IV D5W 250 ML IV SCH ×2 (05:21→18:53)
[2017-09-08] MEDS: methylPREDNISolone SOD SUCC 125 MG/2ML VIAL IV SCH ×3 (05:21→22:57)
[2017-09-08] MEDS: BLOOD SUGAR DIAGNOSTIC 1 EACH STRIP VI SCH ×4 (06:04→22:00)
[2017-09-08] MEDS: INSULIN REGULAR, HUMAN 100 UNIT/ML 3 ML VIAL SQ PRN ×3 (06:18→19:03)
--- NOTE | 2017-09-08 06:20 | NUR ---
LINE CLEANER NOTES: BLOOD SUGAR THIS AM WAS 218. 6 UNITS OF INSULIN WAS ADMINISTERED. WILL CONTINUE TO MONITOR PT.
--- NOTE | 2017-09-08 06:57 | NUR ---
MONORAIL HELPER CLOSING NOTES: ALL NEEDS WERE ATTENDED AND ANTICIPATED FOR. PT IS ON 3LPM VIA NC AND IS TOLERATING WELL. PT HAS R UPPER EXTREMITY PICC LINE TRIPLE LUMEN SITE BEING INFUSED WITH NS AT 50ML/HR. PT ON TELE BOX AND READING SHOWS SR81. HOB ON SEMI ZIMMERMAN'S POSITION. CALL LIGHT WITHIN PT'S REACH. BED KEPT IN LOW, LOCKED POSITION, AND SIDE RAILS X 2UP. WILL ENDORSE TO AM NURSE FOR RACHAEL.
[2017-09-08 07:20] VITALS: BP 140/70
--- NOTE | 2017-09-08 07:30 | NUR ---
RN OPENING NOTES PT RECEIVED A&0X3 WATCHING T.V IN BED. PT WITH O2 VIA NC AT 3LPM AND DENIES SOB, NO S/S OF RESP DISTRESS AT THIS TIME. PT DENIES PAIN. PT WITH PICC AT R UA TRIPLE LUMEN, INACTACT AND OPERATIONAL FOR BLOOD DRAW AND IVF. BED IN LOWEST, LOCKED POSITION WITH HANDRAILSX2 AND CALL DICKENS WITHIN REACH. PT BRIEFED ON TODAY'S POC AND IS WITHOUT CONCERN OR COMPLAINT AT THIS TIME.
[2017-09-08 08:33] LABS: EOSINOPHILS % (AUTO) 0.1 % (0.0-6.0); HEMATOCRIT 34 % (39-51); HEMOGLOBIN 11.7 g/dL (13.5-17.5); LYMPHOCYTES # (AUTO) 0.6 /CMM (0.8-4.8); LYMPHOCYTES % (AUTO) 6.8 % (20.0-44.0); MEAN CORPUSCULAR HEMOGLOBIN 31 PG (26.0-33.0); MEAN CORPUSCULAR HGB CONC 35 g/dl (31.0-36.0); MEAN CORPUSCULAR VOLUME 90 fL (80-96); MONOCYTES # (AUTO) 0.2 /CMM (0.1-1.30); MONOCYTES % (AUTO) 2.1 % (2.0-12.0); NEUTROPHILS # (AUTO) 8.3 /CMM (1.8-8.9); PLATELET COUNT (AUTO) 197 /CMM (150-450); RDW COEFFICIENT OF VARIATION 14.4 (11.5-15.0); RED BLOOD CELL COUNT(AUTO) 3.74 MIL/uL (4.5-6.0); WHITE BLOOD COUNT (AUTO) 9.1 K/uL (4.3-11.0)
[2017-09-08 08:52] LABS: CARBON DIOXIDE 27 mmol/L (21-32); CHLORIDE 104 mmol/L (98-107); CREATININE 0.8 mg/dL (0.6-1.3); GLUCOSE 263 mg/dL (74-106); POTASSIUM 3.9 mmol/L (3.5-5.1); SODIUM SERUM 139 mmol/L (136-145); UREA NITROGEN, BLOOD 16 mg/dL (7-18)
[2017-09-08] MEDS ORDERED: AZITHROMYCIN 250 MG TABLET PO SCH (09:00)
[2017-09-08] MEDS: FOLIC ACID 1 MG TABLET PO SCH (09:42)
[2017-09-08] MEDS: ESCITALOPRAM OXALATE (10 MG) 10 MG TABLET PO SCH (09:42)
[2017-09-08] MEDS: clonazePAM 0.5 MG TABLET PO SCH ×2 (09:42→22:57)
[2017-09-08] MEDS: CLOPIDOGREL BISULFATE 75 MG TABLET PO SCH (09:42)
[2017-09-08] MEDS: GABAPENTIN 300 MG CAPSULE PO SCH ×3 (09:42→18:53)
[2017-09-08] MEDS: LACTOBACILLUS RHAMNOSUS GG 1 EACH CAP.SPRINK PO SCH ×2 (09:43→18:53)
[2017-09-08] MEDS: PANTOPRAZOLE 40 MG TABLET.DR PO SCH (09:48)
[2017-09-08] MEDS: AMOX/CLAVULANATE 875 MG TABLET PO SCH ×2 (09:48→22:57)
[2017-09-08 16:00] VITALS: BP 138/78
[2017-09-08] MEDS ORDERED: Amox/Clavulanate PO (18:24)
[2017-09-08] MEDS ORDERED: PRED20TA PO (18:29)
[2017-09-08 20:00] VITALS: BP 112/52
--- NOTE | 2017-09-08 20:26 | NUR ---
RN CLOSING NOTES PT A&0X3 WATCHING T.V IN BED. PT WITH ROOM AIR TRIAL PER MD SPENCE. PT TOLERATING ROOM AIR WITHOUT SOB OR RESP DISTRESS, PT ENCOURAGED TO CALL FOR ASSISTANCE IF SOB OCCURS. PT WITH PICC AT UA TRIPLE LUMEN, INTACT AND OPERATIONAL. PT DENIES PAIN. BED IN LOWEST, LOCKED POSITION WITH HANDRAILSX2 AND CALL DICKENS WITHIN REACH. PT IS CLEARED FOR D/C PER MD JORDY Vance. PT ENDORSED TO NIGHT NURSE AT BEDSIDE FOR RACHAEL. NIGHT NURSE TO CONTINUE WITH D/C. PT WITHOUT CONCERN OR COMPLAINT AT THIS TIME.
[2017-09-08] MEDS: ATORVASTATIN 10 MG TABLET PO SCH (22:57)
--- NOTE | 2017-09-08 23:35 | NUR ---
RT PT REFUSE TX AT THIS TIME. HE WANTS TO CONTINUE SLEEPING HR 88 sPO2 99%
[2017-09-09] MEDS: ZOLPIDEM TARTRATE 10 MG TABLET PO PRN (00:01)
[2017-09-09] MEDS: IPRATROPIUM NEB FS 0.5 MG/2.5 ML AMPUL.NEB NEB SCH ×2 (03:30→09:30)
[2017-09-09] MEDS: ALBUTEROL HALF STRENGTH 1.25 MG/3 ML VIAL.NEB NEB SCH ×2 (03:30→09:31)
[2017-09-09] MEDS: VANCOMYCIN 0.75 GM in IV D5W 250 ML IV SCH (05:21)
[2017-09-09] MEDS: IV NS 0.9% 1,000 ML IV PRN (05:29)
--- NOTE | 2017-09-09 05:49 | NUR ---
RN CLOSING NOTES PATIENT IN BED RESTING. NO SOB. NO ACUTE DISTRESS. RESPIRATION EVEN AND UNLABORED. NO S/S OF PAIN OR DISCOMFORT AT THIS TIME. ALL NEEDS ATTENDED AND PROVIDED. BED IN LOCKED, LOW POSITION, CALL LIGHT WITHIN REACH. ENDORSED TO NEXT SHIFT NURSE FOR RACHAEL.
[2017-09-09] MEDS: BLOOD SUGAR DIAGNOSTIC 1 EACH STRIP VI SCH (06:27)
[2017-09-09] MEDS: INSULIN REGULAR, HUMAN 100 UNIT/ML 3 ML VIAL SQ PRN (06:28)
--- NOTE | 2017-09-09 07:20 | NUR ---
RN NOTES PATIENT IN BED, ASLEEP BUT EASILY AROUSABLE, DENIES PAIN OR DISCOMFORT AT THIS TIME, NO S/SX OF RESPIRATORY DISTRESS NOTED, NEEDS ATTENDED, SAFETY MEASURES IN PLACED, CALL LIGHT WITHIN REACH, WILL CONTINUE TO MONITOR.
[2017-09-09] MEDS: PANTOPRAZOLE 40 MG TABLET.DR PO SCH (08:44)
[2017-09-09] MEDS: AMOX/CLAVULANATE 875 MG TABLET PO SCH (08:46)
[2017-09-09] MEDS: methylPREDNISolone SOD SUCC 125 MG/2ML VIAL IV SCH (08:46)
[2017-09-09] MEDS: CLOPIDOGREL BISULFATE 75 MG TABLET PO SCH (08:46)
[2017-09-09] MEDS: FOLIC ACID 1 MG TABLET PO SCH (08:46)
[2017-09-09] MEDS: LACTOBACILLUS RHAMNOSUS GG 1 EACH CAP.SPRINK PO SCH (08:46)
[2017-09-09] MEDS: GABAPENTIN 300 MG CAPSULE PO SCH (08:46)
[2017-09-09] MEDS: ESCITALOPRAM OXALATE (10 MG) 10 MG TABLET PO SCH (08:46)
[2017-09-09] MEDS: clonazePAM 0.5 MG TABLET PO SCH (08:46)
[2017-09-09 08:51] LABS: CALCIUM, SERUM 7.9 mg/dL (8.5-10.1); CARBON DIOXIDE 30 mmol/L (21-32); CHLORIDE 104 mmol/L (98-107); CREATININE 0.6 mg/dL (0.6-1.3); GLUCOSE 206 mg/dL (74-106); POTASSIUM 3.9 mmol/L (3.5-5.1); SODIUM SERUM 138 mmol/L (136-145); UREA NITROGEN, BLOOD 18 mg/dL (7-18)
--- NOTE | 2017-09-09 11:37 | NUR ---
RN NOTES PATIENT IN BED, ALERT AND ORIENTED X3, DENIES PAIN AT THIS TIME, ANXIOUS TO GO BACK TO SNF, PATIENT IN NO S/SX OF DISTRES, IN ROOM AIR WITH SPO2 WHICH RANGES FROM 88-92% AT REST. PER MD OK TO GIVE PATIENT 1LPM VIA OR IF NEEDED. SKIN ASSESSMENT COMPLETED, PHOTOS TAKEN. REPORT GIVEN TO FAROOQ JEWELL AT [facility]. PATIENT RECEIVED DISCHARGE PAPERWORKS AND VERBALIZED UNDERSTANDING. SIGNED PAPERWORKS. NEEDS ATTENDED AND MET. REMOVED LAURIE PICC, PRESSURE APPLIED, TAPED WITH GAUZE. PATIENT PICKED UP BY 2 CROCHETER AND LEFT THE FACILITY VIA GURNEY.
== END 2017-09-09 11:40 | DRG 871 ==
LOC: ER 12:38 → ICU 15:49 → TELE 09-07 22:58 → MED 09-08 09:13
PROC: 5A09357 Assistance with Respiratory Ventilation, Less than 24 Consecutive Hours, Continuous Positive Airway Pressure (ICD-10-PCS; principal; 2017-09-05)
PROC: 06HY33Z Insertion of Infusion Device into Lower Vein, Percutaneous Approach (ICD-10-PCS; 2017-09-06)
DX: A41.9 Sepsis, unspecified organism (principal); J96.01 Acute respiratory failure with hypoxia; E43 Unspecified severe protein-calorie malnutrition; G93.40 Encephalopathy, unspecified; R65.21 Severe sepsis with septic shock; J18.0 Bronchopneumonia, unspecified organism; R57.1 Hypovolemic shock; J18.9 Pneumonia, unspecified organism; I50.33 Acute on chronic diastolic (congestive) heart failure; D68.59 Other primary thrombophilia; E11.51 Type 2 diabetes mellitus with diabetic peripheral angiopathy without gangrene; R53.2 Functional quadriplegia; J44.1 Chronic obstructive pulmonary disease with (acute) exacerbation; J44.0 Chronic obstructive pulmonary disease with (acute) lower respiratory infection; E11.65 Type 2 diabetes mellitus with hyperglycemia; I11.0 Hypertensive heart disease with heart failure; D64.9 Anemia, unspecified; I25.10 Atherosclerotic heart disease of native coronary artery without angina pectoris; Z86.73 Personal history of transient ischemic attack (TIA), and cerebral infarction without residual deficits; E78.00 Pure hypercholesterolemia, unspecified; E78.5 Hyperlipidemia, unspecified; F32.9 Major depressive disorder, single episode, unspecified; E11.69 Type 2 diabetes mellitus with other specified complication; K21.9 Gastro-esophageal reflux disease without esophagitis; G20 Parkinson's disease; F02.80 Dementia in other diseases classified elsewhere, unspecified severity, without behavioral disturbance, psychotic disturbance, mood disturbance, and anxiety; I65.23 Occlusion and stenosis of bilateral carotid arteries; Z79.899 Other long term (current) drug therapy; F09 Unspecified mental disorder due to known physiological condition; F17.200 Nicotine dependence, unspecified, uncomplicated; K59.00 Constipation, unspecified; Z95.5 Presence of coronary angioplasty implant and graft; D50.9 Iron deficiency anemia, unspecified; E87.5 Hyperkalemia
CPT/HCPCS: 36415; 36600; 71045-TC; 80048-TC; 80053-TC; 80061-TC; 80076-TC; 80202-TC; 82150-TC; 82553-TC; 82746; 82962-TC; 83540-TC; 83690-TC; 83735-TC; 83880; 84100-TC; 84443-TC; 84484-TC; 85025-TC; 85730-TC; 87040-TC; 87081-TC; 87400; 93307-TC; 94762-TC; 94799-TC; A4217; A4606; C1751; J1100; J1815; J1956; J2543; J2930; J3370; J3475; J7030; J7040; J7042; J7060; Z7610

== ENCOUNTER 2017-11-23 22:03 | Inpatient (IN) | payer MEDICARE, OTHER ==
[~2017-11-23] VITALS: Ht 172.7 cm; Wt 63.0 kg
[~2017-11-23 22:03] MED LIST changes: -ALBU2.5V13 IH; -AMIN30LI4 PO; +AMIT25TA9 PO; -ASCO500T9 PO; +Amox/Clavulanate PO; +BISA10SU8 RC; +CLON0.5T12 PO; -CLON0.5T4 PO; -DIVA250T6 PO; +ESCI10TA PO; +FOLI1TAB16 PO; -HYDR-552 PO; +MAGN400O6 PO; +MELA10CA PO; +METF-440 PO; -NITR0.4T SL; +PANT40TA2 PO; +PRED20TA PO; -TRAZ-144 PO; -ZINC220C8 PO; +ZOLP10TA6 PO
--- NOTE | 2017-11-23 22:06 | NUR ---
PT BIBRA FROM SNF FOR ''LOW O2 SATS OF 88 ON O2 AT 2L/MIN/FEVER'' PT AO SLURRED SPEECH NOTED. HX CVA. RR TACHYPNEA NOTED. PT ON NC 2L AT THIS TIME. NO NVD AT THIS TIME. PT GOWNED AND PLACED ON MONITOR WAITING FOR MD JOSEPH.
--- NOTE | 2017-11-23 22:08 | NUR ---
DR. ROJAS AT BEDSIDE FOR EVAL.
[2017-11-23 22:28] LABS: HEMATOCRIT 37 % (39-51); HEMOGLOBIN 12.5 g/dL (13.5-17.5); LYMPHOCYTES # (AUTO) 0.3 /CMM (0.8-4.8); LYMPHOCYTES % (AUTO) 2.7 % (20.0-44.0); MEAN CORPUSCULAR HGB CONC 34 g/dl (31.0-36.0); MEAN CORPUSCULAR VOLUME 90 fL (80-96); MONOCYTES # (AUTO) 0.3 /CMM (0.1-1.30); MONOCYTES % (AUTO) 2.9 % (2.0-12.0); NEUTROPHILS # (AUTO) 10.6 /CMM (1.8-8.9); NEUTROPHILS % (AUTO) 94.4 % (43.0-81.0); PLATELET COUNT (AUTO) 194 /CMM (150-450); RDW COEFFICIENT OF VARIATION 14.6 (11.5-15.0); RED BLOOD CELL COUNT(AUTO) 4.07 MIL/uL (4.5-6.0); WHITE BLOOD COUNT (AUTO) 11.3 K/uL (4.3-11.0)
[2017-11-23] MEDS ORDERED: ALBUTEROL FS 2.5 MG/0.5 ML VIAL.NEB NEB ONE (22:30)
[2017-11-23] MEDS ORDERED: IPRATROPIUM NEB FS 0.5 MG/2.5 ML AMPUL.NEB NEB ONE (22:30)
[2017-11-23] MEDS ORDERED: PIPERACILLIN /TAZOBACTAM 3.375 G in IV D5W 50 ML IV ONE (22:30)
[2017-11-23] MEDS ORDERED: ACETAMINOPHEN ES 500 MG TABLET PO ONE (22:30)
[2017-11-23] MEDS ORDERED: VANCOMYCIN 1 GM in IV D5W 250 ML IV ONE (22:30)
[2017-11-23] MEDS ORDERED: IV NS 0.9% 1,000 ML BAG IV ONE (22:30)
--- NOTE | 2017-11-23 22:31 | NUR ---
RADIOLOGY AT BEDSIDE FOR CXR
[2017-11-23] MEDS ORDERED: ACETAMINOPHEN 325 MG TABLET ONE (22:35)
[2017-11-23 22:40] LABS: CALCIUM, SERUM 9.1 mg/dL (8.5-10.1); CARBON DIOXIDE 29 mmol/L (21-32); CHLORIDE 99 mmol/L (98-107); CREATININE 1.1 mg/dL (0.6-1.3); GLUCOSE 207 mg/dL (74-106); SODIUM SERUM 136 mmol/L (136-145); UREA NITROGEN, BLOOD 28 mg/dL (7-18)
--- NOTE | 2017-11-23 22:40 | NUR ---
PT PLACED ON SIMPLE MASK, 02 SAT 93%
[2017-11-23] MEDS ORDERED: LIDOCAINE 2% JEL UROJET 10 ML MM ONE ×2 (22:42→23:00)
--- NOTE | 2017-11-23 22:44 | NUR ---
HELD TYLENOL, PT UNABLE TO SWALLOW WATER AT THIS TIME. DR ROJAS MADE AWARE
[2017-11-23 22:48] LABS: TROPONIN I 0.028 ng/mL (0.00-0.056)
[2017-11-23] MEDS ORDERED: IPRATROPIUM NEB FS 0.5 MG/2.5 ML AMPUL.NEB ONE (22:48)
[2017-11-23] MEDS ORDERED: ALBUTEROL FS 2.5 MG/0.5 ML VIAL.NEB ONE (22:48)
[2017-11-23 22:53] LABS: ALANINE AMINOTRANSFERASE 13 U/L (12-78); ALBUMIN 2.7 g/dL (3.4-5.0); ALKALINE PHOSPHATASE 81 U/L (46-116); ASPARTATE AMINOTRANSFERASE 10 U/L (15-37); B-TYPE NATRIURETIC PEPTIDE 930 PG/ML (0-125); BILIRUBIN,DIRECT 0.2 mg/dL (0.0-0.2); BILIRUBIN,TOTAL 0.6 mg/dL (0.2-1.0); TOTAL PROTEIN, SERUM 7.6 g/dL (6.4-8.2)
--- NOTE | 2017-11-23 22:53 | NUR ---
URINE COLLECTED. SENT TO LAB
--- NOTE | 2017-11-23 22:55 | NUR ---
RT AT BEDSIDE FOR BREATHING TX.
--- NOTE | 2017-11-23 23:02 | NUR ---
INFLUENZA SWAB COLLECTED. SENT TO LAB
--- NOTE | 2017-11-23 23:03 | NUR ---
VERBAL ORDERS PER DR. ROJAS TO USE PRESSURE BAGS FOR IV BOLUS.
[2017-11-23] MEDS ORDERED: PIPERACILLIN /TAZOBACTAM 3.375 G VIAL IV ONE (23:04)
[2017-11-23] MEDS ORDERED: VANCOMYCIN 1 GM VIAL ONE (23:04)
--- NOTE | 2017-11-23 23:06 | NUR ---
FAMILY AT BEDSIDE. MD AWARE
--- NOTE | 2017-11-23 23:14 | NUR ---
DR. ROJAS SPEAKING TO FAMILY REGARDING POC
[2017-11-23] MEDS ORDERED: ASPIRIN 300 MG/SUPP.RECT RC ONE ×2 (23:18→23:30)
[2017-11-23 23:47] LABS: APPEARANCE,URINE SL CLOUDY (CLEAR); BILIRUBIN,URINE NEGATIVE (NEGATIVE); BLOOD, URINE 1+ Ery/uL (NEGATIVE); COLOR,URINE YELLOW (YELLOW); KETONES,URINE TRACE (NEGATIVE); LEUKOCYTE ESTERASE ,URINE NEGATIVE (NEGATIVE); NITRITE, URINE NEGATIVE (NEGATIVE); PH,URINE 5.5 (5.0-8.0); PROTEIN,URINE TRACE mg/dl (NEGATIVE); UGLUCOSE NEGATIVE (NEGATIVE); UROBILINOGEN,URINE 0.2 EU/dL (0.2)
[2017-11-23 23:53] LABS: BACTERIA,URINE Many /HPF (None Seen); SQUAMOUS EPITHELIAL CELL,UR Moderate /HPF (None Seen); URINE AMORPHOUS URATE Few /HPF (None Seen)
[2017-11-24] VITALS (75 sets, daily range): BP systolic 77–125; BP diastolic 40–103
--- NOTE | 2017-11-24 00:11 | NUR ---
VERBAL ORDERS PER DR. ROJAS TO IV BOLUS 2L NOW. PT MEDICATED.
--- NOTE | 2017-11-24 00:15 | NUR ---
PER REFUSED TO SIGN CENTRAL LINE INSERTION CONSENT. RISK AND BENEFITS EXPLAINED X3. STRONGLY REFUSES, "I WOULD RATHER WOULD WAIT FOR MY DAUGHTERS" DR. ROJAS AWARE.
[2017-11-24] MEDS ORDERED: IV NS 0.9% 1,000 ML BAG IV ONE (00:30)
--- NOTE | 2017-11-24 00:32 | NUR ---
PT TO CT.
--- NOTE | 2017-11-24 00:38 | NUR ---
PT RETURNED FROM CT.
--- NOTE | 2017-11-24 00:44 | NUR ---
CALLED NURSE SUP FOR ICU BED
--- NOTE | 2017-11-24 01:18 | NUR ---
DR. PAULINO SPEAKING TO DR. ROJAS REGARDING ADMISSION
--- NOTE | 2017-11-24 01:18 | NUR ---
Brenda fields in ED - 11/24/17 at [address] CARTER SPEAKING TO DR. ROJAS REGARDING ADMISSION
--- NOTE | 2017-11-24 01:33 | NUR ---
REPORT GIVEN TO [facility] [place] FOR RACHAEL.
--- NOTE | 2017-11-24 02:10 | NUR ---
SURGICAL ASSIST: RECEIVED PT ON 4L VIA NC FOR PRIMARY DX OF RESPIRATORY FAILURE AND PNA UNDER DR. SALDIVAR. 02 SAT AT 94% AND NOTED WT CONGESTED/WT CRACKLES. DEEP NASOPHARYNGEAL SUCTIONING PERFORMED BY RT AND TOLERATED FAIRLY WT SMALL AMT. OF WALLACE THICK SECRETIONS. LETHARGIC, BARELY OPENS EYES WT PAIN STIMULI AND UNABLE TO FOLLOW SIMPLE COMMANDS. ST ON DEVELOPER PROGRAMMER. SBP LESS THAN 90. PAGED MD FOR ADMISSION ORDERS. SAFETY PRECAUTION NOTED. WILL CONTINUE TO MONITOR.
--- NOTE | 2017-11-24 02:16 | NUR ---
PT TRANSFERRED PER ACLS PROTOCOL.
[2017-11-24 02:31] LABS: ABG OXYGEN SATURATION 92.8 % (92.0-98.5); ABG PH 7.371 (7.350-7.450); ABG PO2 74.8 mmHg (75.0-100.0); COHb 0.3 % (0.5-1.5); MetHb 0.7 % (0.0-1.5); O2Hb 91.9 % (94.0-97.0); SITE, ABG Right Radial; VENT MODE, BG nasal cannula
--- NOTE | 2017-11-24 02:45 | NUR ---
ANATOMICAL EMBALMER: DR. SALDIVAR CALLED BACK FOR ADMISSION ORDERS. NOTIFIED OF PT'S CURRENT CONDITION, NOTED WT CONGESTION/CRACKLES AND GIVEN 4L NS BOLUS FROM ER. SAID STILL OK TO GIVE NS AT 100ML/HR. NOTED AND CARRIED OUT.
[2017-11-24] MEDS ORDERED: PHENYLEPHRINE 80 MG in IV NS 0.9% 250 ML IV PRN (03:00)
[2017-11-24] MEDS: IV NS 0.9% 1,000 ML IV PRN ×2 (03:28→17:53)
[2017-11-24] MEDS ORDERED: IPRATROPIUM NEB FS 0.5 MG/2.5 ML AMPUL.NEB NEB PRN (04:00)
[2017-11-24] MEDS ORDERED: ALBUTEROL FS 2.5 MG/3 ML VIAL.NEB NEB PRN (04:00)
[2017-11-24] MEDS ORDERED: ENOXAPARIN SODIUM 40 MG/0.4 ML DISP.SYRIN SQ ONE (04:00)
[2017-11-24] MEDS: IPRATROPIUM NEB FS 0.5 MG/2.5 ML AMPUL.NEB NEB SCH ×4 (04:15→19:52)
[2017-11-24] MEDS ORDERED: PIPERACILLIN /TAZOBACTAM 3.375 G in IV NS 0.9% 50 ML IV SCH (05:00)
[2017-11-24] MEDS ORDERED: PIPERACILLIN /TAZOBACTAM 4.5 G in IV D5W 50 ML IV SCH (05:00)
[2017-11-24] MEDS ORDERED: DEXTROSE 50%-WATER 50 ML DISP.SYRIN IV PRN ×2 (05:00→08:30)
[2017-11-24] MEDS ORDERED: PIPERACILLIN /TAZOBACTAM 3.375 G VIAL IV ONE (05:02)
--- NOTE | 2017-11-24 05:50 | NUR ---
CLERICAL TRANSCRIBER: PT IS MORE ALERT AND AWAKE AT THIS TIME. ABLE TO TALK IN SLURRED SPEECH AND FOLLOW SIMPLE COMMANDS. ON 4L 02 VIA NC WT NO 02 SAT 92% AND ABOVE. WILL CONTINUE TO MONITOR.
[2017-11-24] MEDS ORDERED: INSULIN REGULAR, HUMAN 100 UNIT/ML 3 ML VIAL SQ PRN (06:00)
[2017-11-24] MEDS ORDERED: BLOOD SUGAR DIAGNOSTIC 1 EACH STRIP IN SCH (06:00)
[2017-11-24] MEDS ORDERED: PHENYLEPHRINE 10 MG/ML VIAL ONE (06:07)
--- NOTE | 2017-11-24 06:20 | NUR ---
SAGGER FILLER: DR. WIN SAW AND EXAMINED PT. STARTED ON NEOSYNEPHRINE AT 40MCG/MIN. AWAITING FURTHER ORDERS.
[2017-11-24] MEDS ORDERED: IPRATROPIUM NEB FS 0.5 MG/2.5 ML AMPUL.NEB NEB SCH (07:35)
--- NOTE | 2017-11-24 07:35 | NUR ---
RN NOTES RECEIVED PT IN BED, AWAKE ALERT ORIENTED TO IMMEDIATE NEEDS, NOTED WITH SLURRED SPEECH. ON O2 @4LPM VIA NC. NO DISTRESS NOTED. ONGOING IV NS@100ML/HR INFUSING ON R FA 18G, NEOSYNEPHRINE@ 40MCG/MIN. AWAITING FOR PICCLINE INSERTION, CN AND GEOSPATIAL INFORMATION TECHNOLOGIST AWARE. REPOSITIONED PT FOR COMFORT, SAFETY MAINTAINED. INSTRUCTED PT WITH CALL LIGHT USE. CALL LIGHT WITHIN REACH, WILL CONT TO MONITOR
--- NOTE | 2017-11-24 08:20 | NUR ---
RN NOTES FOLLOWED UP WITH DR LEONOR CARTER REGARDING PICCLINE INSERTION. AWAITING FOR RESPONSE
[2017-11-24] MEDS ORDERED: MAGNESIUM HYDROXIDE 30 ML UDC PO PRN (08:30)
[2017-11-24] MEDS ORDERED: MAG HYDROX/AL HYDROX/SIMETH 30 ML UDC PO PRN (08:30)
[2017-11-24] MEDS ORDERED: BISACODYL SUPP (10 MG) 10 MG/SUPP.RECT SUPP.RECT RC PRN (08:30)
[2017-11-24] MEDS ORDERED: ACETAMINOPHEN 325 MG TABLET PO PRN (08:30)
[2017-11-24] MEDS ORDERED: NA PHOS,M-B/NA PHOS,DI-BA 1 EA ENEMA RC PRN (08:30)
[2017-11-24] MEDS ORDERED: SENNOSIDES 8.6 MG TABLET PO PRN (08:30)
[2017-11-24] MEDS ORDERED: ZOLPIDEM TARTRATE 10 MG TABLET PO PRN (08:30)
[2017-11-24] MEDS ORDERED: ENOXAPARIN SODIUM 40 MG/0.4 ML DISP.SYRIN SQ SCH (09:00)
[2017-11-24] MEDS ORDERED: methylPREDNISolone SOD SUCC 40 MG/ML VIAL IV SCH (09:00)
[2017-11-24] MEDS: GABAPENTIN 300 MG CAPSULE PO SCH ×3 (09:32→17:28)
[2017-11-24] MEDS: ESCITALOPRAM OXALATE (10 MG) 10 MG TABLET PO SCH (09:32)
[2017-11-24] MEDS: PANTOPRAZOLE 40 MG VIAL IV SCH (09:32)
[2017-11-24] MEDS: CALCIUM CARB 250MG /VITAMIN D 1 UDTAB PO SCH (09:33)
[2017-11-24] MEDS: CLOPIDOGREL BISULFATE 75 MG TABLET PO SCH (09:33)
[2017-11-24] MEDS: METFORMIN 500 MG TABLET PO SCH ×2 (09:33→17:28)
[2017-11-24] MEDS: LORATADINE 10 MG TABLET PO SCH (09:33)
--- NOTE | 2017-11-24 10:33 | NUR ---
RN NOTES PT ON SEDATION VACATION. OPENS EYES, FOLLOW COMMANDS. ANNEMARIE HORSE FARM MANAGER AT BEDSIDE. VS STABLE AT THIS TIME. NO RESP DISTRESS NOTED AT THIS TIME. BP 135/71 HR 71 RR 18 O2 SAT 100%. REPOSITIONED PT, ORAL CARE PROVIDED. AT BEDSIDE. Addendum: 11/24/17 at 1111 by YOBANY LIAO RN WRONG ENTRY. WRONG PATIENT. PLEASE DISREGARD
--- NOTE | 2017-11-24 10:55 | NUR ---
RN NOTES MRSA SWAB DONE, LAB CALLED FOR TRASH MAN
--- NOTE | 2017-11-24 10:58 | NUR ---
WOUND CARE CONSULT PATIENT SEEN AND SKIN INTEGRITY ASSESSMENT DONE. SEE MACHINE CLOTHING REPLACER ASSESSMENT IN PCS FOR TODAY. PATIENT PRESENTS WITH INTACT DTI TO THE SACRAL REGION THAT IS NOTED TO BE FADING IN COLOR, AND REDNESS TO THE SCROTAL REGION BOTH POA. ALL SKIN MANAGEMENT DISCUSSED WITH NURSING AT THE BEDSIDE. PATIENT IS NOW AWAKE, ANSWERING QUESTIONS APPROPRIATELY AND ABLE TO MOVE ALL EXTREMITIES. ABLE TO TURN AND MOVE INDEPENDENTLY IN BED, BUT DOES NEED PROMPTING. MD IN AGREEMENT WITH PLAN OF CARE. PATIENT ON COMFORT GEL MATTRESS FOR SKIN MANAGEMENT. Addendum: 11/24/17 at 1101 by ALESSANDRO GARCIA WNDNU Amended: Links added.
[2017-11-24] MEDS ORDERED: Z GUARD REMEDY 2 OZ OINT TP PRN (11:00)
[2017-11-24 11:04] LABS: BASOPHILS % (AUTO) 0.1 % (0.0-2.0); HEMATOCRIT 32 % (39-51); HEMOGLOBIN 10.8 g/dL (13.5-17.5); LYMPHOCYTES % (AUTO) 7.3 % (20.0-44.0); MEAN CORPUSCULAR HGB CONC 33 g/dl (31.0-36.0); MEAN CORPUSCULAR VOLUME 91 fL (80-96); MONOCYTES # (AUTO) 0.7 /CMM (0.1-1.30); MONOCYTES % (AUTO) 5.1 % (2.0-12.0); NEUTROPHILS # (AUTO) 12.4 /CMM (1.8-8.9); NEUTROPHILS % (AUTO) 87.5 % (43.0-81.0); PLATELET COUNT (AUTO) 180 /CMM (150-450); RDW COEFFICIENT OF VARIATION 14.2 (11.5-15.0); RED BLOOD CELL COUNT(AUTO) 3.55 MIL/uL (4.5-6.0); WHITE BLOOD COUNT (AUTO) 14.2 K/uL (4.3-11.0)
[2017-11-24 11:10] LABS: CALCIUM, SERUM 7.7 mg/dL (8.5-10.1); CARBON DIOXIDE 26 mmol/L (21-32); CHLORIDE 107 mmol/L (98-107); CREATININE 0.9 mg/dL (0.6-1.3); GLUCOSE 175 mg/dL (74-106); POTASSIUM 4.1 mmol/L (3.5-5.1); SODIUM SERUM 140 mmol/L (136-145); UREA NITROGEN, BLOOD 19 mg/dL (7-18); VANCOMYCIN,TROUGH 8 ug/ml (12-20)
[2017-11-24] MEDS: HYDROCORTISONE SOD SUCCINATE 100 MG/2 ML VIAL IV SCH ×3 (11:30→17:28)
[2017-11-24] MEDS: VANCOMYCIN 0.75 GM in IV D5W 250 ML IV SCH ×2 (11:30→22:03)
[2017-11-24] MEDS: BLOOD SUGAR DIAGNOSTIC 1 EACH STRIP IN SCH ×3 (11:31→22:01)
[2017-11-24] MEDS: Z GUARD REMEDY 2 OZ OINT TP SCH (11:31)
[2017-11-24] MEDS: FLUDROCORTISONE 0.1 MG TABLET PO SCH ×2 (11:55→17:28)
[2017-11-24] MEDS: INSULIN REGULAR, HUMAN 100 UNIT/ML 3 ML VIAL SQ PRN ×3 (11:59→22:12)
[2017-11-24] MEDS: PIPERACILLIN /TAZOBACTAM 3.375 G in IV D5W 50 ML IV SCH ×2 (12:02→17:28)
[2017-11-24] MEDS ORDERED: FEE PK DOSING 1 MIN EA MC ONE (14:09)
--- NOTE | 2017-11-24 19:30 | NUR ---
PROGRAM COUNSELOR INITIAL NOTES RECEIVED PATIENT AWAKE A/OX3, ABLE TO MAKE NEEDS KNOWN. DENIES PAIN OR DISCOMFORT. DENIES SOB. SKIN WARM AND DRY TO TOUCH. ON TELE MONITOR SR 93. RESPIRATIONS EVEN AND UNLABORED, ON 4LPMO2 VIA NC SPO2 95%. F/C PATENT AND INTACT, DRAINING BY GRAVITY, OUTPUT CLEAR AND YELLOW. IVF RUNNING AT 100ML/HR. HOB ELEVATED. SIDE RAILS UP AND LOCKED. BED KEPT AT LOWEST POSITION. CALL LIGHT KEPT WITHIN EASY REACH. WILL CONTINUE TO MONITOR.
[2017-11-24] MEDS: ATORVASTATIN 10 MG TABLET PO SCH (21:54)
[2017-11-24] MEDS ORDERED: Medication Not On Formulary EA (Melatonin 10 MG) PO SCH (22:00)
[2017-11-24] MEDS ORDERED: AMITRIPTYLINE HCL 25 MG TABLET PO SCH (22:00)
[2017-11-25] VITALS (35 sets, daily range): BP systolic 84–142; BP diastolic 45–74
--- NOTE | 2017-11-25 | NUR ---
PATIENT REFUSED BED BATH AT THIS TIME. WILL TRY AGAIN LATER
[2017-11-25] MEDS: PIPERACILLIN /TAZOBACTAM 3.375 G in IV D5W 50 ML IV SCH ×4 (00:17→17:23)
[2017-11-25] MEDS: FLUDROCORTISONE 0.1 MG TABLET PO SCH ×4 (00:17→17:28)
[2017-11-25] MEDS: IPRATROPIUM NEB FS 0.5 MG/2.5 ML AMPUL.NEB NEB SCH ×4 (02:09→20:04)
[2017-11-25 04:40] LABS: HEMATOCRIT 30 % (39-51); HEMOGLOBIN 10.3 g/dL (13.5-17.5); LYMPHOCYTES # (AUTO) 0.7 /CMM (0.8-4.8); LYMPHOCYTES % (AUTO) 5.2 % (20.0-44.0); MEAN CORPUSCULAR HGB CONC 34 g/dl (31.0-36.0); MEAN CORPUSCULAR VOLUME 91 fL (80-96); MONOCYTES # (AUTO) 0.6 /CMM (0.1-1.30); MONOCYTES % (AUTO) 4.6 % (2.0-12.0); NEUTROPHILS # (AUTO) 11.9 /CMM (1.8-8.9); NEUTROPHILS % (AUTO) 90.2 % (43.0-81.0); PLATELET COUNT (AUTO) 181 /CMM (150-450); RDW COEFFICIENT OF VARIATION 14.7 (11.5-15.0); WHITE BLOOD COUNT (AUTO) 13.1 K/uL (4.3-11.0)
[2017-11-25 05:00] LABS: ALANINE AMINOTRANSFERASE 13 U/L (12-78); ALKALINE PHOSPHATASE 50 U/L (46-116); ASPARTATE AMINOTRANSFERASE 8 U/L (15-37); BILIRUBIN,TOTAL 0.3 mg/dL (0.2-1.0); CALCIUM, SERUM 7.8 mg/dL (8.5-10.1); CARBON DIOXIDE 25 mmol/L (21-32); CHLORIDE 105 mmol/L (98-107); CREATININE 0.8 mg/dL (0.6-1.3); GLUCOSE 176 mg/dL (74-106); MAGNESIUM 1.5 mg/dL (1.8-2.4); PHOSPHORUS 1.8 mg/dL (2.5-4.9); POTASSIUM 3.2 mmol/L (3.5-5.1); SODIUM SERUM 141 mmol/L (136-145); TOTAL PROTEIN, SERUM 6.3 g/dL (6.4-8.2); UREA NITROGEN, BLOOD 14 mg/dL (7-18)
--- NOTE | 2017-11-25 07:05 | NUR ---
RN NOTES RECEIVED PATIENT ON BED, A/OX3, ABLE TO MAKE NEEDS KNOWN. ON 4L O2 N/C , NO SOB NOTED , RESPIRATIONS EVEN AND UNLABORED, ON TELE MONITOR SR , HR IN 90'S ,GOODWIN PATENT AND INTACT, DRAINING TO GRAVITY WITH CLEAR, YELLOW URINE , IVF NS AT 100 CC/HR RUNNING VIA R IJ TLC , SITE CDI, L HAND AND R FA IV SITES CDI, HOB ELEVATED. SIDE RAILS UP x3, CALL LIGHT WITHIN EASY REACH. BED LOCKED AN IN LOWEST POSITION , WILL CONTINUE TO MONITOR MICHAEL POPE .
--- NOTE | 2017-11-25 07:38 | NUR ---
BANKING SERVICES ADVISOR CLOSING NOTES NO SIGNIFICANT CHANGES OVERNIGHT. AWAKE AND ALERT. NO C/O SOB, NO C/O PAIN. NO RESPIRATORY DISTRESS NOTED. F/C PATENT AND INTACT, DRAINING BY GRAVITY. HOB ELEVATED. SIDE RAILS UP AND LOCKED. BED KEPT AT LOWEST POSITION. SIDE RAILS UP AND LOCKED. BED KEPT AT LOWEST POSITION. CALL LIGHT KEPT WITHIN EASY REACH. CONTINUITY OF CARE ENDORSED TO AM NURSE.
[2017-11-25] MEDS: Magnesium 1GM/D5W 100ML PREMIX 100 ML IV SCH ×2 (08:07→09:35)
[2017-11-25] MEDS: INSULIN REGULAR, HUMAN 100 UNIT/ML 3 ML VIAL SQ PRN ×3 (08:08→23:06)
[2017-11-25] MEDS: NEUTRA PHOS 1 POWD.PACKET PO SCH ×2 (08:09→15:30)
[2017-11-25] MEDS: HYDROCORTISONE SOD SUCCINATE 100 MG/2 ML VIAL IV SCH ×3 (08:09→17:30)
[2017-11-25] MEDS: LORATADINE 10 MG TABLET PO SCH (08:09)
[2017-11-25] MEDS: ESCITALOPRAM OXALATE (10 MG) 10 MG TABLET PO SCH (08:10)
[2017-11-25] MEDS: POTASSIUM CHLORIDE 20 MEQ TAB.PRT.SR PO SCH ×3 (08:10→10:54)
[2017-11-25] MEDS: CLOPIDOGREL BISULFATE 75 MG TABLET PO SCH (08:10)
[2017-11-25] MEDS: GABAPENTIN 300 MG CAPSULE PO SCH ×3 (08:10→17:30)
[2017-11-25] MEDS: PANTOPRAZOLE 40 MG VIAL IV SCH (08:10)
[2017-11-25] MEDS: CALCIUM CARB 250MG /VITAMIN D 1 UDTAB PO SCH (08:10)
[2017-11-25] MEDS: METFORMIN 500 MG TABLET PO SCH ×2 (08:10→17:30)
[2017-11-25] MEDS: FOLIC ACID 1 MG TABLET PO SCH (08:12)
[2017-11-25] MEDS: ENOXAPARIN SODIUM 40 MG/0.4 ML DISP.SYRIN SQ SCH (08:13)
[2017-11-25] MEDS: BLOOD SUGAR DIAGNOSTIC 1 EACH STRIP IN SCH ×4 (08:16→22:00)
[2017-11-25] MEDS: Z GUARD REMEDY 2 OZ OINT TP SCH (09:35)
[2017-11-25] MEDS: IV NS 0.9% 1,000 ML IV PRN (10:11)
[2017-11-25] MEDS: VANCOMYCIN 0.75 GM in IV D5W 250 ML IV SCH (10:55)
--- NOTE | 2017-11-25 12:00 | NUR ---
RN NOTES SUPPORTIVE FAMILY AT THE BEDSIDE, VSS STABLE , CONTINUE TO MONITOR .
--- NOTE | 2017-11-25 15:55 | NUR ---
RN NOTES PT TRANSFERRED TO ROOM 114-1, TELE BED IN STABLE CONDITION PER MD ORDER .
--- NOTE | 2017-11-25 16:02 | NUR ---
CHARGE NURSE KATHERINE RECEIVED BEDSIDE REPORT ON THE PATIENT AND ENDORSED TO Diana PLASCENCIA RN. PATIENT IS IN BED, A/O X3, FORGETFUL. PATIENT IS TRANSFERRED FROM ICU TO [facility] A TELEMETRY STATUS. EXTERNAL MONITOR READING [id number]. DENIES PAIN/DISCOMFORT AT THIS TIME. ALL NEEDS ARE MET. WILL CONTINUE TO ASSESS/MONITOR THROUGHOUT THE SHIFT.
--- NOTE | 2017-11-25 17:38 | NUR ---
PATIENT WAS TRANSFERRED FROM ICU. NEUTRA-PHOS NOT ADMINISTERED.. PHARMACY NOTIFIED. TIME CHANGED. WILL ADMINISTER NOW.
[2017-11-25] MEDS ORDERED: NEUTRA PHOS 1 POWD.PACKET PO SCH (18:00)
--- NOTE | 2017-11-25 19:12 | NUR ---
PICKERS MATERIAL HANDLERS CLOSING NOTE GAVE BEDSIDE SBAR REPORT ON THE PATIENT. PATIENT IS A/O X4, ASLEEP, EASILY AWAKEN IN BED. BED IS LOCKED, IN LOWEST POSITION, SIDE RAILS UP X3. RECEIVED OXYGEN 2LPM VIA NASAL CANNULA SATURATING 92%. HOB ELEVATED. PATIENT REPOSITIONED. LIMBS IN FUNCTIONAL ALIGNMENT. GOODWIN CATHETER DRAINING CLEAR YELLOW URINE. DENIES PAIN/DISCOMFORT. CHEST IS RISING EQUALLY/BILATERALLY. EXTERNAL GENERAL LABOR READING SR 91. CALL LIGHT WITHIN REACH. EDUCATED TO USE THE CALL LIGHT TO CALL FOR ASSISTANCE AND VERBALIZED UNDERSTANDING. ENDORSED TO THE CANDY SEPARATOR HARD NURSE FOR RACHAEL.
--- NOTE | 2017-11-25 20:00 | NUR ---
LITIGATION PARTNER NOTES RECEIVED PTS ON BED AWAKE AND RESPONSIVE , ON TELE SR ON THE MONITOR SATING 91-92 % ON 2 LITERS OF O2 VIA NC , V/S STABLE AFEBRILE , NO SOB NO DISTRESS NOTED DUE MEDS GIVEN ORDERED ALL NEEDS ATTENDED TO CALL LIGHT WITHIN REACH KEPT PTS CLEAN DRY AND COMFORTABLE WILL CONTINUE TO MONITOR PTS.
[2017-11-25] MEDS: ATORVASTATIN 10 MG TABLET PO SCH (21:31)
--- NOTE | 2017-11-25 22:00 | NUR ---
METAL NUMERICAL TOOL PROGRAMMER NOTES BLOOD SUGAR FOR 10PM IS 199MG/DL 3 UNITS OF REGULAR INSULIN GIVEN PER SLIDING SCALE.
[2017-11-25] MEDS: VANCOMYCIN 1 GM in IV D5W 250 ML IV SCH (23:10)
[2017-11-26] VITALS: BP 134/66
[2017-11-26] MEDS: PIPERACILLIN /TAZOBACTAM 3.375 G in IV D5W 50 ML IV SCH ×5 (00:32→23:55)
[2017-11-26] MEDS: FLUDROCORTISONE 0.1 MG TABLET PO SCH ×2 (00:40→05:19)
[2017-11-26] MEDS: IPRATROPIUM NEB FS 0.5 MG/2.5 ML AMPUL.NEB NEB SCH ×4 (01:39→19:39)
[2017-11-26 04:00] VITALS: BP 96/58
[2017-11-26] MEDS: IV NS 0.9% 1,000 ML IV PRN ×2 (04:18→21:11)
--- NOTE | 2017-11-26 06:37 | NUR ---
OTOLARYNGOLOGY NURSE NOTES PTS REMAINS ON 2 LITERS OF O2 VIA NC , SATING 92 % ALL DUE MEDS GIVEN ORDERED , WILL ENDORSE TO RN DAY SHIFT FOR CONTINUITY OF CARE .CONTINUE TO MONITOR PTS.
--- NOTE | 2017-11-26 07:15 | NUR ---
RN OPENING NOTES RECEIVED PATIENT IN BED, ALERT ORIENTED X3. NO ACUTE DISTRESS NOTED. BREATHING UNLABORED. IV ACCESS PATENT AND INTACT, NO REDNESS OR SWELLING NOTES. GOODWIN CATHETER IN PLACE, DRAINING WELL, NO SEDIMENTS NOTED. CALL LIGHT WITHIN REACH. SAFETY MEASURES IN PLACE. HOB ELEVATED. WILL CONTINUE TO MONITOR ACCORDINGLY.
[2017-11-26 07:38] LABS: BASOPHILS % (AUTO) 0.1 % (0.0-2.0); HEMATOCRIT 30 % (39-51); HEMOGLOBIN 10.1 g/dL (13.5-17.5); LYMPHOCYTES # (AUTO) 1.5 /CMM (0.8-4.8); LYMPHOCYTES % (AUTO) 13.1 % (20.0-44.0); MEAN CORPUSCULAR HGB CONC 34 g/dl (31.0-36.0); MEAN CORPUSCULAR VOLUME 91 fL (80-96); MONOCYTES # (AUTO) 0.8 /CMM (0.1-1.30); MONOCYTES % (AUTO) 6.8 % (2.0-12.0); NEUTROPHILS # (AUTO) 9.3 /CMM (1.8-8.9); PLATELET COUNT (AUTO) 199 /CMM (150-450); RDW COEFFICIENT OF VARIATION 14.8 (11.5-15.0); RED BLOOD CELL COUNT(AUTO) 3.25 MIL/uL (4.5-6.0); WHITE BLOOD COUNT (AUTO) 11.7 K/uL (4.3-11.0)
[2017-11-26 07:58] LABS: ALANINE AMINOTRANSFERASE 12 U/L (12-78); ALBUMIN 1.9 g/dL (3.4-5.0); ALKALINE PHOSPHATASE 53 U/L (46-116); ASPARTATE AMINOTRANSFERASE 10 U/L (15-37); BILIRUBIN,TOTAL 0.3 mg/dL (0.2-1.0); CALCIUM, SERUM 7.6 mg/dL (8.5-10.1); CARBON DIOXIDE 26 mmol/L (21-32); CHLORIDE 107 mmol/L (98-107); CREATININE 0.7 mg/dL (0.6-1.3); GLUCOSE 131 mg/dL (74-106); MAGNESIUM 1.5 mg/dL (1.8-2.4); PHOSPHORUS 1.7 mg/dL (2.5-4.9); POTASSIUM 3.1 mmol/L (3.5-5.1); SODIUM SERUM 143 mmol/L (136-145); UREA NITROGEN, BLOOD 16 mg/dL (7-18)
[2017-11-26 08:00] VITALS: BP 122/68
[2017-11-26] MEDS: BLOOD SUGAR DIAGNOSTIC 1 EACH STRIP IN SCH ×4 (08:21→21:21)
[2017-11-26] MEDS: GABAPENTIN 300 MG CAPSULE PO SCH ×3 (08:37→16:49)
[2017-11-26] MEDS: PANTOPRAZOLE 40 MG VIAL IV SCH (08:37)
[2017-11-26] MEDS: CLOPIDOGREL BISULFATE 75 MG TABLET PO SCH (08:37)
[2017-11-26] MEDS: CALCIUM CARB 250MG /VITAMIN D 1 UDTAB PO SCH (08:37)
[2017-11-26] MEDS: ESCITALOPRAM OXALATE (10 MG) 10 MG TABLET PO SCH (08:37)
[2017-11-26] MEDS: HYDROCORTISONE SOD SUCCINATE 100 MG/2 ML VIAL IV SCH ×3 (08:37→16:49)
[2017-11-26] MEDS: METFORMIN 500 MG TABLET PO SCH ×2 (08:38→16:49)
[2017-11-26] MEDS: FOLIC ACID 1 MG TABLET PO SCH (08:38)
[2017-11-26] MEDS: Z GUARD REMEDY 2 OZ OINT TP SCH (08:38)
[2017-11-26] MEDS: LORATADINE 10 MG TABLET PO SCH (08:38)
[2017-11-26] MEDS: ENOXAPARIN SODIUM 40 MG/0.4 ML DISP.SYRIN SQ SCH (08:39)
--- NOTE | 2017-11-26 09:00 | NUR ---
RN NOTES SEEN AND EVALUATED BY DR JARQUIN WITH NEW ORDERS MADE. NOTED AND CARRIED OUT.
[2017-11-26] MEDS: Magnesium 1GM/D5W 100ML PREMIX 100 ML IV SCH ×4 (09:24→16:49)
[2017-11-26] MEDS: POTASSIUM PHOSPHATE MM 5 MMOL in IV NS 0.9% 100 ML IV SCH ×2 (10:36→18:28)
[2017-11-26] MEDS: VANCOMYCIN 1 GM in IV D5W 250 ML IV SCH ×2 (11:57→23:07)
[2017-11-26 12:00] VITALS: BP 127/53
[2017-11-26] MEDS ORDERED: Magnesium 1GM/D5W 100ML PREMIX 100 ML IV SCH (12:45)
[2017-11-26] MEDS: INSULIN REGULAR, HUMAN 100 UNIT/ML 3 ML VIAL SQ PRN ×3 (12:55→21:24)
--- NOTE | 2017-11-26 14:16 | NUR ---
RN NOTES CLARIFIED ORDERS WITH DR NATH REGARDING MAGNESIUM IV, MADE AWARE THAT DR JARQUIN ORDERED EARLIER TO BE GIVEN, DR NATH SAID TO CANCEL HIS ORDER. NOTED AND CARRIED OUT.
[2017-11-26 16:00] VITALS: BP 120/64
--- NOTE | 2017-11-26 18:45 | NUR ---
RN CLOSING NOTES PATIENT IN BED, ALERT ORIENTED X3.REMAINS CALM, RESTING IN BED. ON O2 VIA NC. NO ACUTE DISTRESS NOTED. BREATHING UNLABORED. IV ACCESS PATENT AND INTACT, NO REDNESS OR SWELLING NOTES. GOODWIN CATHETER IN PLACE, DRAINING WELL, NO SEDIMENTS NOTED. CALL LIGHT WITHIN REACH. SAFETY MEASURES IN PLACE. HOB ELEVATED. WILL CONTINUE TO MONITOR ACCORDINGLY. WILL ENDORSED TO NIGHT NURSE FOR CONTINUITY OF CARE.
--- NOTE | 2017-11-26 19:00 | NUR ---
RN NOTES RECEIVE PT IN BED A/O X 3, NO S/S OF DISTRESS, STABLE, SAFETY MEASURES IN PLACE, CALL LIGHT WITHIN REACH, WILL CONTINUE TO MONITOR
[2017-11-26 20:00] VITALS: BP_SYST 130; BP_SYST 134; BP_DIAS 80; BP_DIAS 82
[2017-11-26] MEDS: LORAZEPAM 0.5 MG TABLET PO PRN (21:09)
[2017-11-26] MEDS: ATORVASTATIN 10 MG TABLET PO SCH (21:11)
[2017-11-27] VITALS: BP 138/70
[2017-11-27] MEDS: IPRATROPIUM NEB FS 0.5 MG/2.5 ML AMPUL.NEB NEB SCH ×4 (01:32→19:55)
[2017-11-27 04:00] VITALS: BP 145/54
[2017-11-27] MEDS: PIPERACILLIN /TAZOBACTAM 3.375 G in IV D5W 50 ML IV SCH ×4 (05:02→23:54)
--- NOTE | 2017-11-27 06:26 | NUR ---
MS RN NOTES PT ASLEEP COMFORTABLY IN BED AND EASILY AWAKEN HEAD OF BED ELEVATED FOR BETTER LUNG EXPANSION AND GOOD CIRCULATION. ON 2LPM VIA NC O2 SAT AT 98% NOT IN RESPIRATORY DISTRESS. NO COMPLAINS OF PAIN. STABLE CONDITION. F/C DRAINING YELLOW VIA GRAVITY WITH NO SEDIMENTS NO HEMATURIA NO CLOUDINESS. ASSISTED REPOSITION Q2H PRN. AFEBRILE. NO ACUTE CHANGES THROUGHOUT THE SHIFT. PT KEPT CLEAN AND DRY AND COMFORT. NURSING CARE RENDERED. NEEDS ATTENDED AND ANTICIPATED. GOOD SKIN CARE PROVIDED. ON LOW BED TO ENSURE SAFETY, CALL LIGHT WITHIN REACH, WILL ENDORSE TO THE NEXT SHIFT CONTINUE PLAN OF CARE
--- NOTE | 2017-11-27 07:10 | NUR ---
television schedule coordinator initial notes Received patient in bed, awake, head of bed elevated, no SOB or distress noted, on 02 @ 2lpm via NC and tolerated well. Alert and oriented x 3, verbally responsive and able to make needs known. on tele monitor SR heart rate of 70, no complaint of pain or discomfort noted. Adams in placed attached to drainage bag. Call light with in patient reach, will continue to monitor accordingly.
[2017-11-27 07:33] LABS: CALCIUM, SERUM 7.3 mg/dL (8.5-10.1); CARBON DIOXIDE 28 mmol/L (21-32); CHLORIDE 106 mmol/L (98-107); CREATININE 0.7 mg/dL (0.6-1.3); GLUCOSE 164 mg/dL (74-106); SODIUM SERUM 143 mmol/L (136-145); UREA NITROGEN, BLOOD 11 mg/dL (7-18)
[2017-11-27 08:00] VITALS: BP 145/72
[2017-11-27 08:08] LABS: POTASSIUM 2.6 mmol/L (3.5-5.1)
[2017-11-27] MEDS: BLOOD SUGAR DIAGNOSTIC 1 EACH STRIP IN SCH ×4 (08:14→22:11)
[2017-11-27] MEDS: PANTOPRAZOLE 40 MG VIAL IV SCH (08:15)
[2017-11-27] MEDS: LORAZEPAM 0.5 MG TABLET PO PRN ×2 (08:15→21:10)
[2017-11-27] MEDS: INSULIN REGULAR, HUMAN 100 UNIT/ML 3 ML VIAL SQ PRN ×4 (08:15→22:12)
[2017-11-27] MEDS: ENOXAPARIN SODIUM 40 MG/0.4 ML DISP.SYRIN SQ SCH (08:15)
[2017-11-27] MEDS: CLOPIDOGREL BISULFATE 75 MG TABLET PO SCH (08:15)
[2017-11-27] MEDS: ESCITALOPRAM OXALATE (10 MG) 10 MG TABLET PO SCH (08:15)
[2017-11-27] MEDS: HYDROCORTISONE SOD SUCCINATE 100 MG/2 ML VIAL IV SCH ×2 (08:15→17:02)
[2017-11-27] MEDS: FOLIC ACID 1 MG TABLET PO SCH (08:16)
[2017-11-27] MEDS: METFORMIN 500 MG TABLET PO SCH ×2 (08:16→17:02)
[2017-11-27] MEDS: GABAPENTIN 300 MG CAPSULE PO SCH ×3 (08:16→17:02)
[2017-11-27] MEDS: LORATADINE 10 MG TABLET PO SCH (08:16)
[2017-11-27] MEDS: Z GUARD REMEDY 2 OZ OINT TP SCH (08:16)
[2017-11-27] MEDS: CALCIUM CARB 250MG /VITAMIN D 1 UDTAB PO SCH (08:16)
[2017-11-27] MEDS: IV NS 0.9% 1,000 ML IV PRN (10:29)
[2017-11-27] MEDS: VANCOMYCIN 1 GM in IV D5W 250 ML IV SCH ×2 (10:29→22:13)
[2017-11-27] MEDS: POTASSIUM CHLORIDE 20 MEQ TAB.PRT.SR PO SCH ×5 (10:54→15:31)
[2017-11-27 12:00] VITALS: BP 119/71
[2017-11-27 16:00] VITALS: BP 116/63
--- NOTE | 2017-11-27 19:15 | NUR ---
CLAIMS CORRESPONDENCE CLERK CLOSING NOTES All needs provided, attended, anticipated. Call light with in patient reach, on tele monitor SR, no complaint of pain or discomfort. Endorsed to next shift RN to continue care.
--- NOTE | 2017-11-27 19:30 | NUR ---
RN NOTES RECEIVED PATIENT IN BED AWAKE, AO X 3, ABLE TO MAKE NEEDS KNOWN; SLURRED SPEECH. NO ACUTE DISTRESS NOTED. DENIES ANY PAIN AT THIS TIME. TELE READING SR WITH 1ST DEGREE AV BLOCK HR 79. IV SITE PATENT, INTACT; IVF INFUSING ORDERED. SAFETY REMINDERS GIVEN. ON LOW BED WITH BILATERAL UPPER SIDE RAILS UP. CALL DICKENS WITHIN EASY REACH. WILL CONTINUE TO MONITOR.
[2017-11-27 20:00] VITALS: BP 141/80
[2017-11-27] MEDS: ATORVASTATIN 10 MG TABLET PO SCH (22:11)
[2017-11-28] VITALS: BP 136/74
--- NOTE | 2017-11-28 00:30 | NUR ---
RN NOTES PATIENT REQUESTING FOR SLEEPING PILL. PATIENT WAS TAKING AMBIEN [address] PABON MADE AWARE. DR. PABON ORDERED AMBIEN 10 MG PO X 1; NOTED AND CARRIED OUT.
[2017-11-28] MEDS ORDERED: ZOLPIDEM TARTRATE 10 MG TABLET PO ONE (01:00)
[2017-11-28] MEDS: IPRATROPIUM NEB FS 0.5 MG/2.5 ML AMPUL.NEB NEB SCH ×4 (01:26→20:00)
[2017-11-28 04:00] VITALS: BP 141/77
--- NOTE | 2017-11-28 06:00 | NUR ---
RN NOTES PATIENT ASLEEP, EASILY AROUSABLE. RESPIRATIONS EVEN. NO SIGNS OF PAIN NOTED. DUE MEDS GIVEN WITH NO ASE NOTED. NEEDS ATTENDED. KEPT CLEAN AND DRY. SAFETY PRECAUTIONS AND COMFORT MEASURES IN PLACE. WILL GIVE REPORT TO DAY SHIFT FOR CONTINUITY OF CARE.
[2017-11-28] MEDS: PIPERACILLIN /TAZOBACTAM 3.375 G in IV D5W 50 ML IV SCH ×3 (06:05→18:09)
[2017-11-28] MEDS: IV NS 0.9% 1,000 ML IV PRN (06:07)
[2017-11-28] MEDS: BLOOD SUGAR DIAGNOSTIC 1 EACH STRIP IN SCH ×3 (06:39→16:48)
--- NOTE | 2017-11-28 07:17 | NUR ---
RN INITIAL NOTES RN RECEIVED PATIENT IN BED, ALERT ORIENTED X3. NO ACUTE DISTRESS NOTED.PT BREATHING UNLABORED. IV ACCESS PATENT AND INTACT, NO REDNESS OR SWELLING NOTES. PATIENT REQUESTING TO SPEAK WITH MD FOR PLAN OF CARE RN WILL CONTINUE TO FOLLOW -UP . CALL LIGHT WITHIN REACH. SAFETY MEASURES IN PLACE. HOB ELEVATED. RN WILL CONTINUE TO MONITOR
[2017-11-28 08:00] VITALS: BP 133/68
[2017-11-28 08:01] LABS: CALCIUM, SERUM 7.6 mg/dL (8.5-10.1); CARBON DIOXIDE 33 mmol/L (21-32); CREATININE 0.8 mg/dL (0.6-1.3); GLUCOSE 91 mg/dL (74-106); UREA NITROGEN, BLOOD 10 mg/dL (7-18)
[2017-11-28 08:10] LABS: CHLORIDE 105 mmol/L (98-107); SODIUM SERUM 144 mmol/L (136-145)
[2017-11-28 08:19] LABS: POTASSIUM 2.8 mmol/L (3.5-5.1)
[2017-11-28] MEDS: LORAZEPAM 0.5 MG TABLET PO PRN (08:29)
[2017-11-28] MEDS: LORATADINE 10 MG TABLET PO SCH (08:30)
[2017-11-28] MEDS: CLOPIDOGREL BISULFATE 75 MG TABLET PO SCH (08:30)
[2017-11-28] MEDS: METFORMIN 500 MG TABLET PO SCH ×2 (08:30→16:47)
[2017-11-28] MEDS: PANTOPRAZOLE 40 MG VIAL IV SCH (08:30)
[2017-11-28] MEDS: FOLIC ACID 1 MG TABLET PO SCH (08:30)
[2017-11-28] MEDS: CALCIUM CARB 250MG /VITAMIN D 1 UDTAB PO SCH (08:30)
[2017-11-28] MEDS: GABAPENTIN 300 MG CAPSULE PO SCH ×3 (08:30→16:48)
[2017-11-28] MEDS: HYDROCORTISONE SOD SUCCINATE 100 MG/2 ML VIAL IV SCH ×2 (08:31→16:48)
[2017-11-28] MEDS: ESCITALOPRAM OXALATE (10 MG) 10 MG TABLET PO SCH (08:31)
[2017-11-28] MEDS: ENOXAPARIN SODIUM 40 MG/0.4 ML DISP.SYRIN SQ SCH (08:32)
[2017-11-28] MEDS: Z GUARD REMEDY 2 OZ OINT TP SCH (08:42)
[2017-11-28] MEDS ORDERED: POTASSIUM CL. PREMIX PERIPHER. 50 ML IV SCH (11:03)
[2017-11-28] MEDS: VANCOMYCIN 1 GM in IV D5W 250 ML IV SCH (11:42)
[2017-11-28] MEDS: INSULIN REGULAR, HUMAN 100 UNIT/ML 3 ML VIAL SQ PRN (11:45)
[2017-11-28 12:00] VITALS: BP 129/67
--- NOTE | 2017-11-28 12:11 | NUR ---
RN NOTE RN CONTACTED PHARMACY ABOUT THE MEDICATION - POTASSIUM IN REGARDS TO DELAY OF ADMINISTRATION DUE TO NOT HAVING POTASSIUM STOCKED IN [facility] AND THE NEED FOR DELIVERY , PHARMACY STATES THAT THEY WILL DELIVER. RN WILL CONTINUE TO WAIT
[2017-11-28] MEDS: POTASSIUM CHLORIDE 20 MEQ TAB.PRT.SR PO SCH ×5 (12:35→18:09)
[2017-11-28 16:00] VITALS: BP 127/60
--- NOTE | 2017-11-28 18:13 | NUR ---
RN NOTE RN CONTACTED [facility] FOR REPORT X2, RN GAVE REPORT TO JAMES JEWELL IN REGARDS TO CONTINUATION OF CARE, DISCHARGE PAPER WORK COMPLETED AND REVIEWED WITH PATIENT WELL , PAPERWORK WILL BE SENT WITH THE PATIENT A T 7:30PM . RN HAS ALSO CONTACTED THE PATIENTS FAMILY ( ALYCIA- [phone]) TO INFORM THEM OF THE PATIENTS DISCHARGE TO [facility], PATIENT ACKNOWLEDGED UNDERSTANDING
--- NOTE | 2017-11-28 18:28 | NUR ---
RN CLOSING NOTES PATIENT IN BED, ALERT ORIENTED X3.REMAINS CALM, DINNER ADMINISTER PATIENT UPDATED ON UPCOMING DISCHARGE. PT ON 2L -O2 VIA NC. NO ACUTE DISTRESS NOTED. BREATHING UNLABORED. IV ACCESS PATENT AND INTACT, NO REDNESS OR SWELLING NOTES. GOODWIN CATHETER D/C'D, NO PAIN OR SWELLING NOTED CALL LIGHT WITHIN REACH. SAFETY MEASURES IN PLACE. HOB ELEVATED. RN WILL CONTINUE TO MONITOR ACCORDINGLY. RN WILL ENDORSED TO PM NURSE FOR CONTINUITY OF CARE.
--- NOTE | 2017-11-28 19:15 | NUR ---
SHIPWRIGHT SUPERVISOR INITIAL NOTE PATIENT IS AOX3, SLURRED SPEECH RESTING COMFORTABLY IN BED, DENIES ANY PAIN DUE TO BE DISCHARGED TO [facility]. RIJ PATENT FLUSHES WELL, INCONTINENT DIAPER ON, SKIN KEPT CLEAN AND DRY. TELE SR 82, NO CARDIAC OR RESPIRATORY DISTRESS REPORTED, 2L O2 VIA NC. SAFETY MAINTAINED AT ALL TIMES, BED IN LOW LOCKED POSITION, CALL LIGHT WITHIN REACH. WILL CONTINUE TO MONITOR FOR ANY CHANGE IN CONDITION.
[2017-11-28 20:00] VITALS: BP 147/70
--- NOTE | 2017-11-28 20:30 | NUR ---
ELECTRONIC MUSICAL INSTRUMENT REPAIRER D/C NOTE PATIENT PICKED UP BY EMT TO BE TRANSPORTED TO [facility], [facility]URSE AND WAS ALSO NOTIFIED. PATIENT IS STABLE.
[2017-11-29] MEDS ORDERED: VANCOMYCIN 1 GM in IV D5W 250 ML IV SCH (05:00)
== END 2017-11-28 21:06 | DRG 871 ==
LOC: ER 22:05 → ICU 11-24 01:19 → TELE1 11-25 15:55
PROVIDERS: ADMIT Internal Medicine; ATTEND Internal Medicine
DX: A41.9 Sepsis, unspecified organism (principal); I21.A1 Myocardial infarction type 2; J96.91 Respiratory failure, unspecified with hypoxia; R65.21 Severe sepsis with septic shock; I11.0 Hypertensive heart disease with heart failure; J18.9 Pneumonia, unspecified organism; I50.9 Heart failure, unspecified; E11.51 Type 2 diabetes mellitus with diabetic peripheral angiopathy without gangrene; E11.69 Type 2 diabetes mellitus with other specified complication; J44.0 Chronic obstructive pulmonary disease with (acute) lower respiratory infection; J44.1 Chronic obstructive pulmonary disease with (acute) exacerbation; I69.359 Hemiplegia and hemiparesis following cerebral infarction affecting unspecified side; G20 Parkinson's disease; F02.80 Dementia in other diseases classified elsewhere, unspecified severity, without behavioral disturbance, psychotic disturbance, mood disturbance, and anxiety; Z95.1 Presence of aortocoronary bypass graft; Z87.891 Personal history of nicotine dependence; Z79.899 Other long term (current) drug therapy; Z79.84 Long term (current) use of oral hypoglycemic drugs; I25.10 Atherosclerotic heart disease of native coronary artery without angina pectoris; I65.23 Occlusion and stenosis of bilateral carotid arteries; F09 Unspecified mental disorder due to known physiological condition; E78.5 Hyperlipidemia, unspecified; Y95 Nosocomial condition; E87.6 Hypokalemia; G40.909 Epilepsy, unspecified, not intractable, without status epilepticus; E83.39 Other disorders of phosphorus metabolism
CPT/HCPCS: 31720; 36415; 36600; 71045-TC; 80048-TC; 80053-TC; 80076-TC; 80202-TC; 81000-TC; 82533; 82962-TC; 83605-TC; 83735-TC; 83880; 84100-TC; 84484-TC; 85025-TC; 87040-TC; 87081-TC; 87086-TC; 87400; 92526; 92611-TC; 93307-TC; 94799-TC; A4216; A4606; C1751; C9113; J1650; J1720; J1815; J2370; J2543; J2920; J3370; J3475; J3480; J3490; J7030; J7050; J7060; Z7610

== ENCOUNTER 2018-01-15 19:25 | Inpatient (IN) | payer MEDICARE, OTHER ==
[~2018-01-15] VITALS: Ht 167.6 cm; Wt 59.2 kg
--- NOTE | 2018-01-15 19:30 | NUR ---
"FROM [facility] HERE FOR CXR YESTERDAY REVEALS LLL PNA", NAD NOTED, VSS, RESP EVEN AND UNLABORED, PT WAS PUT ON MONITOR, WAITING FOR MD JOSEPH.
[2018-01-15 20:13] LABS: BASOPHILS # (AUTO) 0.1 /CMM (0.0-0.2); BASOPHILS % (AUTO) 0.4 % (0.0-2.0); EOSINOPHILS % (AUTO) 0.5 % (0.0-6.0); HEMATOCRIT 34 % (39-51); HEMOGLOBIN 11.8 g/dL (13.5-17.5); LYMPHOCYTES # (AUTO) 1.8 /CMM (0.8-4.8); LYMPHOCYTES % (AUTO) 11.5 % (20.0-44.0); MEAN CORPUSCULAR HGB CONC 35 g/dl (31.0-36.0); MEAN CORPUSCULAR VOLUME 88 fL (80-96); MONOCYTES # (AUTO) 0.8 /CMM (0.1-1.30); MONOCYTES % (AUTO) 4.9 % (2.0-12.0); NEUTROPHILS % (AUTO) 82.7 % (43.0-81.0); PLATELET COUNT (AUTO) 163 /CMM (150-450); RDW COEFFICIENT OF VARIATION 15.5 (11.5-15.0); RED BLOOD CELL COUNT(AUTO) 3.86 MIL/uL (4.5-6.0); WHITE BLOOD COUNT (AUTO) 15.8 K/uL (4.3-11.0)
[2018-01-15 20:29] LABS: ALANINE AMINOTRANSFERASE 18 U/L (12-78); ALKALINE PHOSPHATASE 73 U/L (46-116); ASPARTATE AMINOTRANSFERASE 11 U/L (15-37); BILIRUBIN,DIRECT 0.1 mg/dL (0.0-0.2); BILIRUBIN,TOTAL 0.4 mg/dL (0.2-1.0); CALCIUM, SERUM 8.9 mg/dL (8.5-10.1); CARBON DIOXIDE 29 mmol/L (21-32); CHLORIDE 99 mmol/L (98-107); CREATININE 1.1 mg/dL (0.6-1.3); GLUCOSE 222 mg/dL (74-106); POTASSIUM 4.1 mmol/L (3.5-5.1); SODIUM SERUM 133 mmol/L (136-145); UREA NITROGEN, BLOOD 23 mg/dL (7-18)
[2018-01-15 20:30] LABS: TROPONIN I < 0.017 ng/mL (0.00-0.056)
[2018-01-15] MEDS ORDERED: PIPERACILLIN /TAZOBACTAM 3.375 G VIAL IV ONE (21:10)
--- NOTE | 2018-01-15 21:12 | NUR ---
CALLED THE OFFICE OF DR PABON'S AND DR SALDIVAR WAS PAGED.
--- NOTE | 2018-01-15 21:15 | NUR ---
CALLED NURSING SUP AND REQUESTED A TELE BED FOR THIS PT.
--- NOTE | 2018-01-15 21:17 | NUR ---
PT IS ASSIGNED TO [facility]#: [id number], PT IS DIAGNOSED WITH PNEUMONIA, AND DR. SALDIVAR IS THE ACCEPTING MD.
[2018-01-15 21:19] LABS: BAND % (MANUAL) 16 % (0.0-5.0); LYMPHOCYTES % (MANUAL) 3 % (16-48); MONOCYTES % (MANUAL) 7 % (0-11.0); NEUTROPHILS % (MANUAL) 74 (42-76)
[2018-01-15] MEDS ORDERED: PIPERACILLIN /TAZOBACTAM 3.375 G in IV D5W 50 ML IV ONE (21:30)
[2018-01-15] MEDS ORDERED: IV NS 0.9% 1,000 ML IV ONE (21:30)
[2018-01-15 21:40] VITALS: BP 91/53
--- NOTE | 2018-01-15 21:40 | NUR ---
RN OPENING NOTES: RECEIVED PT FROM AUG FROM ER. PT APPEARS TO BE LETHARGIC. PT OPENS EYES AND MUMBLES WORDS. 2 FAMILY MEMBERS AT BEDSIDE. PT HAS R FOREARM #20G AND IS RUNNING A LITER OF NS AT THIS TIME. PT ON 2LPM VIA NC. BED ALARM ACTIVATED. CALL LIGHT WITHIN PT'S REACH. BED KEPT IN LOW, LOCKED POSITION, AND SIDE RAILS X 2UP. WILL CONTINUE TO MONITOR PT.
[2018-01-15 22:04] LABS: INR 1.01 (0.87-1.13)
--- NOTE | 2018-01-15 22:05 | NUR ---
RN NOTES: SPOKE WITH DR. SALDIVAR. INFORMED HIM THAT FAMILY WISHES FOR CPR OK BUT NO INTUBATION. HAD CHARGE NURSE, SHAHNAZ, SPEAK TO HIM WELL ABOUT FAMILY'S WISHES. GOT THE OK. DR. SALDIVAR WILL PUT IN ORDERS WELL. AWAITING FOR HIM TO PUT IN ORDERS.
[2018-01-15] MEDS ORDERED: NA PHOS,M-B/NA PHOS,DI-BA 1 EA ENEMA RC PRN (23:00)
[2018-01-15] MEDS ORDERED: MAGNESIUM HYDROXIDE 30 ML UDC PO PRN ×2 (23:00)
[2018-01-15] MEDS ORDERED: IPRATROPIUM NEB FS 0.5 MG/2.5 ML AMPUL.NEB IH PRN (23:00)
[2018-01-15] MEDS ORDERED: ACETAMINOPHEN 325 MG TABLET PO PRN ×2 (23:00)
[2018-01-15] MEDS ORDERED: HYDROCODONE/APAP 5/325MG 1 EACH TABLET PO PRN (23:00)
[2018-01-15] MEDS ORDERED: BISACODYL SUPP (10 MG) 10 MG/SUPP.RECT SUPP.RECT RC PRN (23:00)
[2018-01-15] MEDS ORDERED: SENNOSIDES 8.6 MG TABLET PO PRN (23:00)
[2018-01-15] MEDS ORDERED: MAG HYDROX/AL HYDROX/SIMETH 30 ML UDC PO PRN ×2 (23:00)
[2018-01-15] MEDS ORDERED: ONDANSETRON HCL/PF 4 MG/2 ML VIAL IVP PRN (23:00)
[2018-01-15] MEDS ORDERED: Z GUARD REMEDY 2 OZ OINT TP PRN (23:00)
[2018-01-15] MEDS ORDERED: ZOLPIDEM TARTRATE 5 MG TABLET PO PRN (23:00)
[2018-01-15] MEDS ORDERED: VANCOMYCIN 1 GM in IV D5W 250 ML IV SCH (23:30)
[2018-01-16] VITALS: BP 109/61
[2018-01-16] MEDS ORDERED: VANCOMYCIN 1 GM VIAL ONE (00:37)
--- NOTE | 2018-01-16 00:49 | NUR ---
MS RN NOTES: VANCO 1G GIVEN PER PENDING COMMENT; VANCO WAS OVERRODE BY CHARGE NURSE.
[2018-01-16] MEDS ORDERED: PIPERACILLIN /TAZOBACTAM 3.375 G VIAL IV ONE (05:13)
[2018-01-16] MEDS: PIPERACILLIN /TAZOBACTAM 3.375 G in IV D5W 50 ML IV SCH ×4 (05:23→23:00)
--- NOTE | 2018-01-16 05:23 | NUR ---
MS RN NOTES: ZOSYN 3.375G WAS OVERRODE BY CHARGE NURSE. HAD TO MANUALLY ADMINISTER ZOSYN IT WAS NOT SCANNING FROM THE BAR GUN.
--- NOTE | 2018-01-16 06:14 | NUR ---
MS RN CLOSING NOTES: ALL NEEDS WERE ATTENDED AND ANTICIPATED FOR. PT ASLEEP AT THIS TIME. PT ON 2LPM VIA NC AND TOLERATING WELL. PT ON IV AND IS BEING INFUSED WITH ZOSYN AT THIS TIME. BED ALARM ACTIVATED. CALL LIGHT WITHIN PT'S REACH. BED KEPT IN LOW, LOCKED POSITION, AND SIDE RAILS X 2UP. WILL ENDORSE TO AM NURSE FOR RACHAEL.
[2018-01-16 06:18] LABS: BASOPHILS % (AUTO) 0.3 % (0.0-2.0); EOSINOPHILS % (AUTO) 2.1 % (0.0-6.0); HEMATOCRIT 32 % (39-51); HEMOGLOBIN 10.7 g/dL (13.5-17.5); LYMPHOCYTES # (AUTO) 1.9 /CMM (0.8-4.8); LYMPHOCYTES % (AUTO) 16.7 % (20.0-44.0); MEAN CORPUSCULAR HGB CONC 34 g/dl (31.0-36.0); MEAN CORPUSCULAR VOLUME 89 fL (80-96); MONOCYTES # (AUTO) 0.7 /CMM (0.1-1.30); MONOCYTES % (AUTO) 6.7 % (2.0-12.0); NEUTROPHILS # (AUTO) 8.3 /CMM (1.8-8.9); NEUTROPHILS % (AUTO) 74.2 % (43.0-81.0); PLATELET COUNT (AUTO) 166 /CMM (150-450); RED BLOOD CELL COUNT(AUTO) 3.55 MIL/uL (4.5-6.0); WHITE BLOOD COUNT (AUTO) 11.2 K/uL (4.3-11.0)
[2018-01-16 06:39] LABS: CALCIUM, SERUM 8.7 mg/dL (8.5-10.1); CARBON DIOXIDE 25 mmol/L (21-32); CHLORIDE 103 mmol/L (98-107); CREATININE 0.8 mg/dL (0.6-1.3); GLUCOSE 147 mg/dL (74-106); MAGNESIUM 1.9 mg/dL (1.8-2.4); PHOSPHORUS 3.2 mg/dL (2.5-4.9); SODIUM SERUM 136 mmol/L (136-145); UREA NITROGEN, BLOOD 18 mg/dL (7-18)
[2018-01-16 06:52] LABS: CHOLESTEROL 121 mg/dL (<200); HDL CHOLESTEROL 53 mg/dL (40-60); LDL 69 mg/dL (0-99); TRIGLYCERIDES 90 mg/dL (30-150)
--- NOTE | 2018-01-16 07:05 | NUR ---
MS INITIAL RN NOTES: Received patient on bed, sleeping, HOB elevated. on 2L O2 via NC, unlabored, no SOB. IV g#20 on R forearm. No facial grimace noted. Alert/oriented x1 as endorsed by night RN. wheezing noted upon auscultation. will continue to monitor.
[2018-01-16] MEDS ORDERED: FEE PK DOSING 1 MIN EA MC ONE (07:58)
[2018-01-16 08:00] VITALS: BP 117/63
[2018-01-16] MEDS: LORATADINE 10 MG TABLET PO SCH (08:55)
[2018-01-16] MEDS: PANTOPRAZOLE 40 MG TABLET.DR PO SCH (08:56)
[2018-01-16] MEDS: CLOPIDOGREL BISULFATE 75 MG TABLET PO SCH (08:56)
[2018-01-16] MEDS: METFORMIN 500 MG TABLET PO SCH ×2 (08:56→16:08)
[2018-01-16] MEDS: ESCITALOPRAM OXALATE (10 MG) 10 MG TABLET PO SCH (08:56)
[2018-01-16] MEDS: predniSONE 20 MG TABLET PO SCH (08:56)
[2018-01-16] MEDS: clonazePAM 0.5 MG TABLET PO SCH ×2 (08:57→21:15)
[2018-01-16] MEDS: GABAPENTIN 300 MG CAPSULE PO SCH ×3 (08:57→16:08)
[2018-01-16] MEDS: METOPROLOL TARTRATE 25 MG TABLET PO SCH ×2 (08:57→20:26)
[2018-01-16] MEDS: FOLIC ACID 1 MG TABLET PO SCH (08:57)
[2018-01-16] MEDS: VANCOMYCIN 1 GM in IV D5W 250 ML IV SCH (12:13)
[2018-01-16 16:00] VITALS: BP 100/53
[2018-01-16] MEDS: ZOLPIDEM TARTRATE 10 MG TABLET PO SCH (18:11)
--- NOTE | 2018-01-16 19:12 | NUR ---
ms rn closing notes All needs provided, attended, and anticipated. Endorsed patient in stable condition to continue care. call light with in patient reach.
--- NOTE | 2018-01-16 19:19 | NUR ---
MS RN OPENING NOTES: RECEIVED PT IN BED AND IS AWAKE AT THIS TIME. PT IS ON 2LPM VIA NC. PT IS AWAKE AND SAID HE IS HAVING A BOWEL MOVEMENT. PT IS A/OX1-2. PT HAS IV AND IS PATENT AND INTACT. CALL LIGHT WITHIN PT'S REACH. BED ALARM ACTIVATED. BED KEPT IN LOW, LOCKED POSITION, AND SIDE RAILS X 2UP. WILL CONTINUE TO MONITOR PT.
[2018-01-16 20:00] VITALS: BP 108/58
[2018-01-16] MEDS: AMITRIPTYLINE HCL 25 MG TABLET PO SCH (21:15)
[2018-01-16] MEDS: ATORVASTATIN 10 MG TABLET PO SCH (21:15)
[2018-01-17] MEDS: PIPERACILLIN /TAZOBACTAM 3.375 G in IV D5W 50 ML IV SCH ×4 (05:02→23:59)
--- NOTE | 2018-01-17 07:10 | NUR ---
LONNIE RN INITIAL NOTES: -Received patient on bed, awake, with head of bed elevated. on 2L O2 via NC, no SOB noted. SCD in place. IV on R arm g#20 H/L. no complaints of discomfort as of the moment. call light within reach, bed in lowest position. endorsed in stable condition by packaging operator RN.
--- NOTE | 2018-01-17 07:22 | NUR ---
MS RN CLOSING NOTES: ALL NEEDS WERE ATTENDED AND ANTICIPATED FOR. PT ON 2LPM VIA NC AND IS TOLERATING WELL. PT PLACED ON SCD PUMPS WELL. PT HAS IV AND IS PATENT AND INTACT. CURRENTLY S/L. BED ALARM ACTIVATED. CALL LIGHT WITHIN PT'S REACH. BED KEPT IN LOW, LOCKED POSITION, AND SIDE RAILS X 2UP. ENDORSED TO AM NURSE FOR RACHAEL.
[2018-01-17 07:26] LABS: CALCIUM, SERUM 8.9 mg/dL (8.5-10.1); CARBON DIOXIDE 28 mmol/L (21-32); CHLORIDE 103 mmol/L (98-107); CREATININE 0.9 mg/dL (0.6-1.3); GLUCOSE 129 mg/dL (74-106); POTASSIUM 3.7 mmol/L (3.5-5.1); SODIUM SERUM 139 mmol/L (136-145); UREA NITROGEN, BLOOD 15 mg/dL (7-18)
[2018-01-17 08:00] VITALS: BP 106/63
[2018-01-17] MEDS: ESCITALOPRAM OXALATE (10 MG) 10 MG TABLET PO SCH (08:07)
[2018-01-17] MEDS: FOLIC ACID 1 MG TABLET PO SCH (08:07)
[2018-01-17] MEDS: LORATADINE 10 MG TABLET PO SCH (08:09)
[2018-01-17] MEDS: predniSONE 20 MG TABLET PO SCH (08:09)
[2018-01-17] MEDS: clonazePAM 0.5 MG TABLET PO SCH ×2 (08:09→21:37)
[2018-01-17] MEDS: METFORMIN 500 MG TABLET PO SCH ×2 (08:09→16:00)
[2018-01-17] MEDS: PANTOPRAZOLE 40 MG TABLET.DR PO SCH (08:09)
[2018-01-17] MEDS: METOPROLOL TARTRATE 25 MG TABLET PO SCH ×2 (08:09→21:00)
[2018-01-17] MEDS: CLOPIDOGREL BISULFATE 75 MG TABLET PO SCH (08:09)
[2018-01-17] MEDS: GABAPENTIN 300 MG CAPSULE PO SCH ×3 (08:11→16:00)
[2018-01-17] MEDS: VANCOMYCIN 1 GM in IV D5W 250 ML IV SCH ×3 (14:08)
[2018-01-17 16:00] VITALS: BP 152/98
[2018-01-17] MEDS: ZOLPIDEM TARTRATE 10 MG TABLET PO SCH (18:48)
--- NOTE | 2018-01-17 19:19 | NUR ---
ms rn closing notes All needs provided, attended, and anticipated. Endorsed patient in stable condition to continue care. call light with in patient reach.
[2018-01-17 20:00] VITALS: BP 115/68
--- NOTE | 2018-01-17 20:00 | NUR ---
MS RN NOTE: PATIENT TRANSFERRED TO ROOM 201 WITH ALL BELONGINGS. PATIENT RESTING IN BED, NO ACUTE DISTRESS NOTED. BREATHING EVEN AND UNLABORED, NO SOB NOTED. IV TO RFA IN PLACE. ORIENTED PATIENT TO ROOM. BED LOCK AND IN LOWEST POSITION, CALL LIGHT IN REACH. WILL CONTINUE TO MONITOR.
[2018-01-17] MEDS: AMITRIPTYLINE HCL 25 MG TABLET PO SCH (21:37)
[2018-01-17] MEDS: ATORVASTATIN 10 MG TABLET PO SCH (21:37)
[2018-01-18] MEDS: VANCOMYCIN 1 GM in IV D5W 250 ML IV SCH (00:57)
--- NOTE | 2018-01-18 03:15 | NUR ---
MS RN NOTE: PATIENT SLEEPING IN BED, NO ACUTE DISTRESS NOTED. BREATHING EVEN AND UNLABORED, NO SOB NOTED. BED LOCKED AND IN LOWEST POSITION, CALL LIGHT IN REACH, WILL CONTINUE TO MONITOR.
[2018-01-18] MEDS: PIPERACILLIN /TAZOBACTAM 3.375 G in IV D5W 50 ML IV SCH (05:43)
--- NOTE | 2018-01-18 06:05 | NUR ---
MS RN NOTE: PATIENT RESTING IN BED, NO ACUTE DISTRESS NOTED. BREATHING EVEN AND UNLABORED, NO SOB NOTED. IV TO RFA IN PLACE. BED LOCK AND IN LOWEST POSITION, CALL LIGHT IN REACH. WILL ENDORSE TO DAY NURSE TO CONTINUE WITH PLAN OF CARE.
[2018-01-18 06:30] LABS: BASOPHILS % (AUTO) 0.3 % (0.0-2.0); HEMATOCRIT 38 % (39-51); HEMOGLOBIN 12.7 g/dL (13.5-17.5); LYMPHOCYTES # (AUTO) 2.3 /CMM (0.8-4.8); LYMPHOCYTES % (AUTO) 22.8 % (20.0-44.0); MEAN CORPUSCULAR HGB CONC 34 g/dl (31.0-36.0); MEAN CORPUSCULAR VOLUME 88 fL (80-96); MONOCYTES # (AUTO) 0.7 /CMM (0.1-1.30); MONOCYTES % (AUTO) 6.7 % (2.0-12.0); NEUTROPHILS # (AUTO) 7.1 /CMM (1.8-8.9); NEUTROPHILS % (AUTO) 69.2 % (43.0-81.0); PLATELET COUNT (AUTO) 201 /CMM (150-450); RDW COEFFICIENT OF VARIATION 16.1 (11.5-15.0); RED BLOOD CELL COUNT(AUTO) 4.27 MIL/uL (4.5-6.0); WHITE BLOOD COUNT (AUTO) 10.3 K/uL (4.3-11.0)
[2018-01-18 07:02] LABS: CALCIUM, SERUM 9.3 mg/dL (8.5-10.1); CARBON DIOXIDE 29 mmol/L (21-32); CHLORIDE 100 mmol/L (98-107); CREATININE 0.9 mg/dL (0.6-1.3); GLUCOSE 133 mg/dL (74-106); MAGNESIUM 1.9 mg/dL (1.8-2.4); POTASSIUM 3.8 mmol/L (3.5-5.1); SODIUM SERUM 138 mmol/L (136-145); UREA NITROGEN, BLOOD 12 mg/dL (7-18)
[2018-01-18] MEDS: PANTOPRAZOLE 40 MG TABLET.DR PO SCH (07:14)
--- NOTE | 2018-01-18 07:20 | NUR ---
M/S RN - Assessment Patient in bed awake, A/O x 2-3, forgetful at times, denies pain, no c/ o SOB, on O2 at 2lpm via NC. Saline lock on the RFA was infiltrated, removed IV line, ice pack applied and right arm elevated on pillows. Patient made aware that I need to put a new IV line for his antibiotics. Patient agreed but requested to do it later after breakfast. Fall and aspiration precautions maintained. All needs anticipated and met. Will continue with current plan of care.
[2018-01-18 08:00] VITALS: BP 125/71
[2018-01-18 08:17] VITALS: BP 125/71
[2018-01-18] MEDS: LORATADINE 10 MG TABLET PO SCH (08:17)
[2018-01-18] MEDS: METFORMIN 500 MG TABLET PO SCH (08:17)
[2018-01-18] MEDS: FOLIC ACID 1 MG TABLET PO SCH (08:17)
[2018-01-18] MEDS: clonazePAM 0.5 MG TABLET PO SCH (08:17)
[2018-01-18] MEDS: METOPROLOL TARTRATE 25 MG TABLET PO SCH (08:17)
[2018-01-18] MEDS: predniSONE 20 MG TABLET PO SCH (08:17)
[2018-01-18] MEDS: CLOPIDOGREL BISULFATE 75 MG TABLET PO SCH (08:17)
[2018-01-18] MEDS: ESCITALOPRAM OXALATE (10 MG) 10 MG TABLET PO SCH (08:17)
[2018-01-18] MEDS: GABAPENTIN 300 MG CAPSULE PO SCH ×2 (08:17→12:51)
--- NOTE | 2018-01-18 14:15 | NUR ---
M/S RN - Discharge Patient feeling better, A/O x 2-3, discharged to [facility] in stable condition. Reviewed discharge instructions with BEST Akers and she verbalized full understanding and all questions answered to her satisfaction. All belongings with the patient and he denies any missing items. VSS, denies pain, afebrile, no c/o SOB, tolerating room air, no apparent distress seen. Heplock removed on the LFA with catheter tip intact, no redness and no swelling noted at the site. Photos taken on all skin breakdown. Discharge papers sent with ambulance crew. Daughter Simona and Andra aware of discharge.
== END 2018-01-18 14:15 | DRG 178 ==
LOC: ER 19:32 → MED 22:02 → MEDSG2 01-17 19:35
PROVIDERS: ADMIT Internal Medicine; ATTEND Internal Medicine Nephrology
DX: J15.6 Pneumonia due to other Gram-negative bacteria (principal); E87.2 Acidosis; E11.51 Type 2 diabetes mellitus with diabetic peripheral angiopathy without gangrene; G20 Parkinson's disease; J44.0 Chronic obstructive pulmonary disease with (acute) lower respiratory infection; I69.354 Hemiplegia and hemiparesis following cerebral infarction affecting left non-dominant side; I11.0 Hypertensive heart disease with heart failure; I50.9 Heart failure, unspecified; I25.10 Atherosclerotic heart disease of native coronary artery without angina pectoris; I65.23 Occlusion and stenosis of bilateral carotid arteries; G40.909 Epilepsy, unspecified, not intractable, without status epilepticus; Z95.1 Presence of aortocoronary bypass graft; Z79.84 Long term (current) use of oral hypoglycemic drugs; Z79.899 Other long term (current) drug therapy; Z66 Do not resuscitate; E78.5 Hyperlipidemia, unspecified; F02.80 Dementia in other diseases classified elsewhere, unspecified severity, without behavioral disturbance, psychotic disturbance, mood disturbance, and anxiety; D63.8 Anemia in other chronic diseases classified elsewhere; F09 Unspecified mental disorder due to known physiological condition; F32.9 Major depressive disorder, single episode, unspecified; Y95 Nosocomial condition
CPT/HCPCS: 36415; 71045-TC; 80048-TC; 80061-TC; 80076-TC; 80202-TC; 83605-TC; 83735-TC; 84100-TC; 84484-TC; 85025-TC; 85730-TC; 87040-TC; 87081-TC; 92526; 92611-TC; A4606; J2543; J3370; J7030; J7050; J7060; Z7610

== ENCOUNTER 2018-01-24 06:56 | Emergency (ER) | payer MEDICARE, OTHER ==
[~2018-01-24] VITALS: Ht 167.6 cm; Wt 68.0 kg
--- NOTE | 2018-01-24 07:03 | NUR ---
YANA FROM [facility] FOR S/P FALL THIS AM. PT FELL OFF THE BED WHILE HE WAS TRYING TO REACH FOR HIS SHOE. PT HAS A LEFT SIDED WEAKNESS DUE TO HISTORY OF STROKE. PT IS DENYING ANY COMPLAINTS. PT GOWNED AND PLACED ON CONT CARDIAC AND POX MONITORING. ALL NEEDS ARE ATTENDED, KEPT WARM AND COMFORTABLE. PENDING ER MD EVALUATION
--- NOTE | 2018-01-24 07:03 | NUR ---
PT NOTED W/ SCALP LACERATION, PT DENIES PAIN.
[2018-01-24 08:07] LABS: BASOPHILS # (AUTO) 0.1 /CMM (0.0-0.2); BASOPHILS % (AUTO) 0.4 % (0.0-2.0); EOSINOPHILS % (AUTO) 0.4 % (0.0-6.0); HEMATOCRIT 39 % (39-51); HEMOGLOBIN 13.1 g/dL (13.5-17.5); LYMPHOCYTES % (AUTO) 30.2 % (20.0-44.0); MEAN CORPUSCULAR HGB CONC 34 g/dl (31.0-36.0); MEAN CORPUSCULAR VOLUME 89 fL (80-96); PLATELET COUNT (AUTO) 271 /CMM (150-450); RDW COEFFICIENT OF VARIATION 15.9 (11.5-15.0); RED BLOOD CELL COUNT(AUTO) 4.34 MIL/uL (4.5-6.0); WHITE BLOOD COUNT (AUTO) 13.1 K/uL (4.3-11.0)
[2018-01-24 08:19] LABS: CALCIUM, SERUM 9.2 mg/dL (8.5-10.1); CARBON DIOXIDE 32 mmol/L (21-32); CHLORIDE 100 mmol/L (98-107); CREATININE 1.1 mg/dL (0.6-1.3); GLUCOSE 127 mg/dL (74-106); POTASSIUM 4.5 mmol/L (3.5-5.1); SODIUM SERUM 137 mmol/L (136-145); UREA NITROGEN, BLOOD 30 mg/dL (7-18)
[2018-01-24 08:25] LABS: TROPONIN I < 0.017 ng/mL (0.00-0.056)
[2018-01-24 08:34] LABS: INR 0.99 (0.87-1.13)
--- NOTE | 2018-01-24 10:24 | NUR ---
JANIS CALLED AND GAVE ETA 1230 ETA
--- NOTE | 2018-01-24 10:25 | NUR ---
[id number]
--- NOTE | 2018-01-24 12:24 | NUR ---
EATING LUNCH AT BEDSIDE.
--- NOTE | 2018-01-24 12:35 | NUR ---
Patient discharged to home in stable condition. Written and verbal after care instructions given. Patient and EMS verbalizes understanding of instruction. Pt discharged to [facility] unit [id number]. Pt is going back to the facility.
[2018-01-24 12:37] VITALS: BP 103/78
== END 2018-01-24 12:38 | disposition home or self-care (01) ==
LOC: ER 06:58
DX: S00.01XA Abrasion of scalp, initial encounter (principal); E11.51 Type 2 diabetes mellitus with diabetic peripheral angiopathy without gangrene; F03.90 Unspecified dementia, unspecified severity, without behavioral disturbance, psychotic disturbance, mood disturbance, and anxiety; F32.9 Major depressive disorder, single episode, unspecified; I25.10 Atherosclerotic heart disease of native coronary artery without angina pectoris; G20 Parkinson's disease; I10 Essential (primary) hypertension; J44.9 Chronic obstructive pulmonary disease, unspecified; Z86.73 Personal history of transient ischemic attack (TIA), and cerebral infarction without residual deficits; R79.1 Abnormal coagulation profile; F17.200 Nicotine dependence, unspecified, uncomplicated; W18.30XA Fall on same level, unspecified, initial encounter; Y93.89 Activity, other specified; Y92.89 Other specified places as the place of occurrence of the external cause; Y99.8 Other external cause status
CPT/HCPCS: 36415; 70450; 71045; 80048; 84484; 85025; 85730; 93005; 99285; A4606; A6402; Z7610

== ENCOUNTER 2018-04-18 00:26 | Inpatient (IN) | payer MEDICARE, OTHER ==
[~2018-04-18] VITALS: Ht 167.6 cm; Wt 62.1 kg
[~2018-04-18 00:26] MED LIST changes: -METF-440 PO; +METF500T6 PO
--- NOTE | 2018-04-18 00:40 | NUR ---
PT BIB PA C/O SOB, LOW O2 SAT, WBC 22, INFILTATES ON XRAY TAKEN TODAY. SENT BY DR PABON. RESP EVEN UNLABORED, ON 4L VIA NC. SKIN WARM DRY. NAD NOTED. VSS. IN ER BED 12 ON MONITOR.
--- NOTE | 2018-04-18 00:49 | NUR ---
called dr schreiber per request of dr pierre; dr pierre spoke with dr mena
--- NOTE | 2018-04-18 00:56 | NUR ---
electrician helper automotive at bedside for lab draw and blood cultures
--- NOTE | 2018-04-18 00:59 | NUR ---
called [facility] room supervisor for tele bed
[2018-04-18] MEDS ORDERED: IV NS 0.9% 500 ML BAG IV ONE (01:00)
[2018-04-18] MEDS ORDERED: LEVOFLOXACIN 750 MG /D5W 150ML 150 ML IV ONE ×2 (01:00→01:06)
--- NOTE | 2018-04-18 01:25 | NUR ---
REPORT GIVEN TO WHITNEY JEWELL FOR ADMISSION
[2018-04-18 01:34] LABS: BASOPHILS % (AUTO) 0.2 % (0.0-2.0); EOSINOPHILS % (AUTO) 0.9 % (0.0-6.0); HEMATOCRIT 38 % (39-51); HEMOGLOBIN 12.2 g/dL (13.5-17.5); LYMPHOCYTES # (AUTO) 1.5 /CMM (0.8-4.8); LYMPHOCYTES % (AUTO) 7.4 % (20.0-44.0); MEAN CORPUSCULAR HEMOGLOBIN 31 PG (26.0-33.0); MEAN CORPUSCULAR HGB CONC 33 g/dl (31.0-36.0); MEAN CORPUSCULAR VOLUME 95 fL (80-96); MONOCYTES # (AUTO) 0.7 /CMM (0.1-1.30); MONOCYTES % (AUTO) 3.6 % (2.0-12.0); NEUTROPHILS # (AUTO) 18.3 /CMM (1.8-8.9); NEUTROPHILS % (AUTO) 87.9 % (43.0-81.0); PLATELET COUNT (AUTO) 190 /CMM (150-450); RDW COEFFICIENT OF VARIATION 15.1 (11.5-15.0); RED BLOOD CELL COUNT(AUTO) 3.97 MIL/uL (4.5-6.0); WHITE BLOOD COUNT (AUTO) 20.8 K/uL (4.3-11.0)
[2018-04-18 01:46] LABS: CALCIUM, SERUM 8.6 mg/dL (8.5-10.1); CARBON DIOXIDE 31 mmol/L (21-32); CHLORIDE 98 mmol/L (98-107); GLUCOSE 293 mg/dL (74-106); POTASSIUM 4.2 mmol/L (3.5-5.1); SODIUM SERUM 134 mmol/L (136-145); UREA NITROGEN, BLOOD 20 mg/dL (7-18)
[2018-04-18 01:53] LABS: TROPONIN I < 0.017 ng/mL (0.00-0.056)
[2018-04-18 01:59] LABS: ALANINE AMINOTRANSFERASE 21 U/L (12-78); ALBUMIN 2.7 g/dL (3.4-5.0); ALKALINE PHOSPHATASE 77 U/L (46-116); ASPARTATE AMINOTRANSFERASE 8 U/L (15-37); B-TYPE NATRIURETIC PEPTIDE 843 PG/ML (0-125); BILIRUBIN,DIRECT 0.1 mg/dL (0.0-0.2); BILIRUBIN,TOTAL 0.4 mg/dL (0.2-1.0); TOTAL PROTEIN, SERUM 7.1 g/dL (6.4-8.2)
[2018-04-18] MEDS ORDERED: ENOXAPARIN SODIUM 80 MG/0.8 ML DISP.SYRIN SQ ONE (02:19)
--- NOTE | 2018-04-18 02:28 | NUR ---
TRANSPORTED TO 326 IN STABLE CONDITION VIA ACLS PROTOCOL
[2018-04-18 02:30] VITALS: BP 100/61
[2018-04-18] MEDS ORDERED: ENOXAPARIN SODIUM 80 MG/0.8 ML DISP.SYRIN SQ SCH (02:30)
[2018-04-18] MEDS ORDERED: IV D5/ 0.9% NACL 1,000 ML IV PRN (02:41)
[2018-04-18] MEDS ORDERED: MAGNESIUM HYDROXIDE 30 ML UDC PO PRN ×2 (03:00)
[2018-04-18] MEDS ORDERED: NA PHOS,M-B/NA PHOS,DI-BA 1 EA ENEMA RC PRN (03:00)
[2018-04-18] MEDS ORDERED: ONDANSETRON HCL/PF 4 MG/2 ML VIAL IVP PRN (03:00)
[2018-04-18] MEDS ORDERED: Z GUARD REMEDY 2 OZ OINT TP PRN (03:00)
[2018-04-18] MEDS ORDERED: HYDROCODONE/APAP 5/325MG 1 EACH TABLET PO PRN (03:00)
[2018-04-18] MEDS ORDERED: ZOLPIDEM TARTRATE 5 MG TABLET PO PRN (03:00)
[2018-04-18] MEDS ORDERED: ACETAMINOPHEN 325 MG TABLET PO PRN ×2 (03:00)
[2018-04-18] MEDS ORDERED: MAG HYDROX/AL HYDROX/SIMETH 30 ML UDC PO PRN ×2 (03:00)
[2018-04-18] MEDS ORDERED: BISACODYL SUPP (10 MG) 10 MG/SUPP.RECT SUPP.RECT RC PRN (03:00)
--- NOTE | 2018-04-18 03:00 | NUR ---
STEAM SHOVELMAN NOTES PT ARRIVED ONTO THE UNIT @0225 VIA GURNEY. NO COMPLAINTS OF PAIN, SOB OR DISTRESS, PT HAS A RIGHT AC #18 IV INTACT AND RUNNING LEVAQUIN. PT TELE MONITORED AT SINUS RHYTHM RATE IN THE 80S. ALL PATIENT BELONGINGS ACCOUNTED FOR AND DOCUMENTED. PT ORIENTED TO THE USE OF THE CALL LIGHT. SAFETY PRECAUTIONS IN PLACE, BED IN LOWEST LOCKED POSITION, X3 SIDE RAILS UP, AND CALL LIGHT WITHIN REACH. WILL CONTINUE TO MONITOR.
[2018-04-18] MEDS ORDERED: VANCOMYCIN 1 GM in IV NS 0.9% 250 ML IV ONE (03:30)
[2018-04-18] MEDS ORDERED: VANCOMYCIN 1 GM VIAL ONE (03:55)
[2018-04-18 04:00] VITALS: BP 103/59
[2018-04-18] MEDS ORDERED: PIPERACILLIN /TAZOBACTAM 3.375 G VIAL IV ONE (05:26)
[2018-04-18] MEDS ORDERED: PIPERACILLIN /TAZOBACTAM 3.375 G in IV D5W 100 ML IV SCH (06:00)
--- NOTE | 2018-04-18 06:50 | NUR ---
RN CLOSING NOTES PT RESTING IN BED. PRIMARILY JAPANESE SPEAKER, UNDERSTANDS [place] ISLANDER. NO COMPLAINTS OF PAIN, SOB OR DISTRESS, PT HAS A RIGHT AC #18 IV RUNNING D5NS@ 100ML/HR. PT TOLERATING FLUID WELL. PT TELE MONITORED AT SINUS RHYTHM RATE IN THE 80S. SAFETY PRECAUTIONS IN PLACE, BED IN LOWEST LOCKED POSITION, X3 SIDE RAILS UP, AND CALL LIGHT WITHIN REACH. WILL ENDORSE TO DAY SHIFT NURSE FOR CONTINUITY OF CARE.
--- NOTE | 2018-04-18 07:55 | NUR ---
MS RN RECEIVED ON BED, AWAKE,ALERT,ORIENTED X3 NOT IN ANY FORM OF DISTRESS,RESPIRATIONS EVEN AND UNLABORED,NO SOB NOTED. LUNGS HAVE WHEEZES, ABDOMEN SOFT,POSITIVE BOWEL SOUNDS,DENIES PAIN AT THIS TIME. ALL NEEDS ATTENDED.
[2018-04-18] MEDS ORDERED: FEE PK DOSING 1 MIN EA MC ONE (07:56)
[2018-04-18 08:00] VITALS: BP 97/58
--- NOTE | 2018-04-18 08:55 | NUR ---
MS JEWELL NPO AT THIS TIME DUE MEDS GIVEN,TOLERATED WELL.
[2018-04-18] MEDS: METOPROLOL TARTRATE 25 MG TABLET PO SCH ×2 (09:00→21:05)
[2018-04-18] MEDS: LORATADINE 10 MG TABLET PO SCH (10:27)
[2018-04-18] MEDS: FOLIC ACID 1 MG TABLET PO SCH (10:27)
[2018-04-18] MEDS: SENNOSIDES 8.6 MG TABLET PO PRN (10:27)
[2018-04-18] MEDS: PANTOPRAZOLE 40 MG TABLET.DR PO SCH (10:28)
[2018-04-18] MEDS: GABAPENTIN 300 MG CAPSULE PO SCH ×3 (10:28→18:43)
[2018-04-18] MEDS: clonazePAM 0.5 MG TABLET PO SCH ×2 (10:28→20:56)
[2018-04-18] MEDS: CLOPIDOGREL BISULFATE 75 MG TABLET PO SCH (10:28)
[2018-04-18] MEDS: ESCITALOPRAM OXALATE (10 MG) 10 MG TABLET PO SCH (10:28)
[2018-04-18] MEDS: PIPERACILLIN /TAZOBACTAM 3.375 G in IV D5W 50 ML IV SCH ×3 (12:58→23:53)
--- NOTE | 2018-04-18 15:00 | NUR ---
MS RN WAS SEEN BY ZHANNA MANNING,AWAITING FOR ORDERS.
[2018-04-18 16:00] VITALS: BP 106/66
[2018-04-18] MEDS ORDERED: DEXTROSE 50%-WATER 50 ML DISP.SYRIN IV PRN (16:00)
[2018-04-18] MEDS: VANCOMYCIN 0.75 GM in IV D5W 250 ML IV SCH (18:44)
[2018-04-18] MEDS: BLOOD SUGAR DIAGNOSTIC 1 EACH STRIP IN SCH ×2 (18:44→22:24)
[2018-04-18] MEDS: INSULIN REGULAR, HUMAN 100 UNIT/ML 3 ML VIAL SQ PRN ×2 (18:55→22:29)
--- NOTE | 2018-04-18 19:00 | NUR ---
ms rn on bed,no distress noted.
--- NOTE | 2018-04-18 19:20 | NUR ---
RN OPENING NOTES RECEIVED PT IN BED, AWAKE, ALERT AND ORIENTED X 2, ABLE TO MAKE NEEDS KNOWN, NO SOB AND IN NO ACUTE DISTRESS. PT RECEIVING IVF ORDERED. ALL PATIENT'S NEEDS ATTENDED TO AT THIS TIME. PLACED CALL LIGHT WITHIN EASY REACH, BED IN LOW POSITION AND LOCKED IN PLACE. WILL CONTINUE TO MONITOR PT.
[2018-04-18] MEDS: IV NS 0.9% 1,000 ML IV PRN (19:21)
[2018-04-18 20:00] VITALS: BP 115/53
[2018-04-18] MEDS: ATORVASTATIN 10 MG TABLET PO SCH (21:19)
[2018-04-18] MEDS: AMITRIPTYLINE HCL 25 MG TABLET PO SCH (21:19)
[2018-04-19] MEDS: VANCOMYCIN 0.75 GM in IV D5W 250 ML IV SCH ×2 (04:31→16:25)
[2018-04-19] MEDS: IV NS 0.9% 1,000 ML IV PRN ×2 (05:06→17:51)
[2018-04-19] MEDS: PIPERACILLIN /TAZOBACTAM 3.375 G in IV D5W 50 ML IV SCH ×3 (05:35→17:40)
[2018-04-19] MEDS: BLOOD SUGAR DIAGNOSTIC 1 EACH STRIP IN SCH ×4 (07:11→22:26)
[2018-04-19] MEDS: INSULIN REGULAR, HUMAN 100 UNIT/ML 3 ML VIAL SQ PRN ×4 (07:13→22:29)
[2018-04-19 07:26] LABS: BASOPHILS % (AUTO) 0.2 % (0.0-2.0); EOSINOPHILS % (AUTO) 0.7 % (0.0-6.0); HEMATOCRIT 37 % (39-51); HEMOGLOBIN 12.1 g/dL (13.5-17.5); LYMPHOCYTES # (AUTO) 2.1 /CMM (0.8-4.8); LYMPHOCYTES % (AUTO) 18.4 % (20.0-44.0); MEAN CORPUSCULAR HEMOGLOBIN 31 PG (26.0-33.0); MEAN CORPUSCULAR HGB CONC 33 g/dl (31.0-36.0); MEAN CORPUSCULAR VOLUME 95 fL (80-96); MONOCYTES # (AUTO) 0.7 /CMM (0.1-1.30); MONOCYTES % (AUTO) 5.8 % (2.0-12.0); NEUTROPHILS # (AUTO) 8.7 /CMM (1.8-8.9); NEUTROPHILS % (AUTO) 74.9 % (43.0-81.0); PLATELET COUNT (AUTO) 162 /CMM (150-450); RDW COEFFICIENT OF VARIATION 15.4 (11.5-15.0); RED BLOOD CELL COUNT(AUTO) 3.85 MIL/uL (4.5-6.0); WHITE BLOOD COUNT (AUTO) 11.6 K/uL (4.3-11.0)
--- NOTE | 2018-04-19 07:35 | NUR ---
ms rn received on bed, awake,alert,oriented x2-3,not in any distress, abdomen soft,positive bowel sounds,denies pain at this time,de la garza connected to gravity bag, denies pain at this time, will monitor patient's condition.
--- NOTE | 2018-04-19 07:35 | NUR ---
RN CLOSING NOTES PATIENT IN BED, ASLEEP BUT EASILY AROUSABLE, IN NO ACUTE DISTRESS. PT WITH ORDER TO COLLECT URINE VIA CATHETER, ATTEMPTED MULTIPLE TIMES BUT NOTED GOODWIN CATHETER WITH RESISTANCE UPON INSERTION. CHECKED PATIENT'S PVR VIA BLADDER SCAN NOTED WITH RESIDUAL OF 393 ML. ATTEMPTED TO COLLECT SPECIMEN ONCE MORE AND WAS ABLE TO INSERT GOODWIN AND OBTAIN SPECIMEN. ALL PATIENT'S NEEDS ATTENDED TO. CALL LIGHT WITHIN EASY REACH. IVF INFUSING ORDERED. BED PLACED IN LOW POSITION AND LOCKED IN PLACE.WILL ENDORSE TO AM SHIFT NURSE FOR CONTINUITY OF CARE.
[2018-04-19 07:49] LABS: CALCIUM, SERUM 8.2 mg/dL (8.5-10.1); CARBON DIOXIDE 32 mmol/L (21-32); CHLORIDE 103 mmol/L (98-107); CREATININE 0.9 mg/dL (0.6-1.3); GLUCOSE 147 mg/dL (74-106); MAGNESIUM 1.8 mg/dL (1.8-2.4); PHOSPHORUS 2.7 mg/dL (2.5-4.9); POTASSIUM 4.3 mmol/L (3.5-5.1); SODIUM SERUM 140 mmol/L (136-145); UREA NITROGEN, BLOOD 9 mg/dL (7-18)
[2018-04-19 07:58] LABS: CHOLESTEROL 129 mg/dL (<200); HDL CHOLESTEROL 50 mg/dL (40-60); LDL 64 mg/dL (0-99); TRIGLYCERIDES 111 mg/dL (30-150)
[2018-04-19 08:00] VITALS: BP 129/72
[2018-04-19] MEDS: METOPROLOL TARTRATE 25 MG TABLET PO SCH ×2 (09:00→21:00)
[2018-04-19] MEDS: IPRATROPIUM NEB FS 0.5 MG/2.5 ML AMPUL.NEB IH PRN (09:44)
[2018-04-19] MEDS: LORATADINE 10 MG TABLET PO SCH (10:05)
[2018-04-19] MEDS: CLOPIDOGREL BISULFATE 75 MG TABLET PO SCH (10:05)
[2018-04-19] MEDS: clonazePAM 0.5 MG TABLET PO SCH ×2 (10:05→22:07)
[2018-04-19] MEDS: SENNOSIDES 8.6 MG TABLET PO PRN (10:05)
[2018-04-19] MEDS: PANTOPRAZOLE 40 MG TABLET.DR PO SCH (10:05)
[2018-04-19] MEDS: ESCITALOPRAM OXALATE (10 MG) 10 MG TABLET PO SCH (10:05)
[2018-04-19] MEDS: FOLIC ACID 1 MG TABLET PO SCH (10:06)
[2018-04-19] MEDS: GABAPENTIN 300 MG CAPSULE PO SCH ×3 (10:06→16:24)
[2018-04-19 16:00] VITALS: BP 104/62
[2018-04-19] MEDS: ENOXAPARIN SODIUM 30 MG/0.3 ML DISP.SYRIN SQ SCH (16:30)
--- NOTE | 2018-04-19 18:00 | NUR ---
ms rn no change of condition, no distress noted.
--- NOTE | 2018-04-19 19:30 | NUR ---
RN OPENING NOTES PATIENT IN BED, ASLEEP BUT AROUSABLE TO NAME AND LIGHT TOUCH. NO SOB, BREATHING EVEN AND UNLABORED, IN NO ACUTE DISTRESS. PT DENIES PAIN, CONTINUES TO RECEIVE IVF ORDERED. ALL PATIENT' NEEDS ATTENDED TO AT THIS TIME. WILL CONTINUE TO MONITOR PT.
[2018-04-19 20:00] VITALS: BP 106/55
[2018-04-19] MEDS: AMITRIPTYLINE HCL 25 MG TABLET PO SCH (22:06)
[2018-04-19] MEDS: ATORVASTATIN 10 MG TABLET PO SCH (22:07)
[2018-04-20] MEDS: PIPERACILLIN /TAZOBACTAM 3.375 G in IV D5W 50 ML IV SCH ×5 (00:12→23:11)
--- NOTE | 2018-04-20 02:40 | NUR ---
RN NOTES SPOKE WITH PT'S SPOUSE, ANGEL LUIS VIA TELEPHONE AND GAVE UPDATE RE: PT'S CONDITION.
[2018-04-20] MEDS: VANCOMYCIN 0.75 GM in IV D5W 250 ML IV SCH ×2 (03:57→16:03)
[2018-04-20] MEDS: IV NS 0.9% 1,000 ML IV PRN ×2 (03:58→16:41)
[2018-04-20] MEDS: BLOOD SUGAR DIAGNOSTIC 1 EACH STRIP IN SCH ×4 (06:35→21:17)
[2018-04-20] MEDS: INSULIN REGULAR, HUMAN 100 UNIT/ML 3 ML VIAL SQ PRN ×4 (06:40→21:16)
--- NOTE | 2018-04-20 06:42 | NUR ---
RN CLOSING NOTES PT IN BED, ASLEEP BUT EASILY AROUSABLE TO NAME AND TOUCH, VERBALLY RESPONSIVE. ALL PATIENT'S NEEDS ATTENDED TO. NO SOB, BREATHING EVEN AND UNLABORED AND IN NO ACUTE DISTRESS. PT CONTINUES TO RECEIVE IVF ORDERED, INFUSING WELL, IVP ON RAC INTACT AND PATENT. UNABLE TO COLLECT SPECIMEN FOR SPUTUM CX PT KEPT ON SWALLOWING PHLEGHM INSPITE OF MULTIPLE INSTRUCTIONS AND EXPLANATION. WILL ENDORSE TO AM SHIFT NURSE FOR CONTINUITY OF CARE.
--- NOTE | 2018-04-20 07:15 | NUR ---
MS/RN OPENING NOTE PATIENT IS RECEIVED IN BED. ALERT AND ORIENTED X2. DENIES SOB. RESPIRATION REGULAR AND UNLABORED. PATIENT DENIES SOB. RECEIVING OXYGEN AT 2L/MIN VIA NASAL CANNULA. DENIES PAIN. RAC G 18 PATENT AND IV FLUID INFUSING WITH NO S/S INFILTRATION. BED LOW AND LOCKED. SIDE RAILS UP X3. CALL LIGHT WITHIN REACH. WILL CONTINUE TO MONITOR.
--- NOTE | 2018-04-20 07:48 | NUR ---
MS/RN NOTE PATIENT IS MADE AWARE ABOUT THE NEED TO COLLECT SPUTUM. INSTRUCTIONS GIVEN TO GUIDE THE PATIENT TO BRING UP AND OUT THE SECRETION, HOWEVER, THE PATIENT KEEPS SWALLOWING IT BACK. WILL ATTEMPT GETTING THE SPECIMEN AGAIN.
[2018-04-20 08:00] VITALS: BP 130/70
[2018-04-20 08:10] VITALS: BP 131/75
[2018-04-20 08:42] LABS: CALCIUM, SERUM 8.2 mg/dL (8.5-10.1); CARBON DIOXIDE 32 mmol/L (21-32); CHLORIDE 102 mmol/L (98-107); CREATININE 0.8 mg/dL (0.6-1.3); GLUCOSE 156 mg/dL (74-106); POTASSIUM 3.9 mmol/L (3.5-5.1); SODIUM SERUM 139 mmol/L (136-145); UREA NITROGEN, BLOOD 9 mg/dL (7-18)
[2018-04-20] MEDS: LORATADINE 10 MG TABLET PO SCH (08:57)
[2018-04-20] MEDS: clonazePAM 0.5 MG TABLET PO SCH ×2 (08:57→21:08)
[2018-04-20] MEDS: CLOPIDOGREL BISULFATE 75 MG TABLET PO SCH (08:57)
[2018-04-20] MEDS: ESCITALOPRAM OXALATE (10 MG) 10 MG TABLET PO SCH (08:57)
[2018-04-20] MEDS: GABAPENTIN 300 MG CAPSULE PO SCH ×3 (08:57→16:53)
[2018-04-20] MEDS: FOLIC ACID 1 MG TABLET PO SCH (08:57)
[2018-04-20] MEDS: PANTOPRAZOLE 40 MG TABLET.DR PO SCH (08:57)
[2018-04-20] MEDS: METOPROLOL TARTRATE 25 MG TABLET PO SCH ×2 (09:00→21:00)
[2018-04-20] MEDS: ENOXAPARIN SODIUM 30 MG/0.3 ML DISP.SYRIN SQ SCH (09:03)
[2018-04-20 16:00] VITALS: BP 90/47
--- NOTE | 2018-04-20 18:25 | NUR ---
MS/RN CLOSING NOTE PATIENT ALERT AND ORIENTED X3 WITH EPISODES FOR FORGETFULNESS. REMINDERS AND REDIRECTION PROVIDED NEEDED. DENIES SOB AT THIS TIME. RESPIRATION REGULAR AND UNLABORED. RECEIVING OXYGEN 2L/MIN VIA NC AND SATURATION AT 98%. DENIES PAIN AT THIS TIME. RAC G 18 PATENT AND IV FLUID INFUSING PER ORDER AND WITH NO S/S INFILTRATION. UNABLE TO COLLECT SPUTUM SPECIMEN DUE TO PATIENT KEEP SWALLOWING AND NOT BRINGING OUT. GOOD AND GENTLE SKIN CARE RENDERED. KEPT CLEAN AND COMFORTABLE. BED LOW AND LOCKED. SIDE RAILS UP X3. CALL LIGHT WITHIN REACH. WILL ENDORSE TO AUTOMATIC CAR WASH ATTENDANT.
--- NOTE | 2018-04-20 19:30 | NUR ---
RN MS OPENING NOTES PATIENT RECEIVED IN BED, AWAKE ALERT AND ORIENTED X2-3 WITH EPISODES OF FORGETFULNESS. RESPIRATIONS EVEN AND UNLABORED WITH EQUAL RISE AND FALL OF CHEST. ON 02 2 LITERS VIA NC. DENIES ANY PAIN OR DISCOMFORT AT THIS TIME. IV SITE TO RIGHT AC #18 INTACT AND PATENT ,NO REDNESS, NO INFILTRATION PRESENT, IVF RUNNING ORDERED. ORIENTED TO STAFF AND CALL LIGHT, CALL LIGHT KEPT WITHIN REACH. SAFETY PRECAUTIONS IN PLACE,LOW BED AND LOCKED BED ALARM IN PLACE. ALL NEEDS ATTENDED AT THIS TIME WILL CONTINUE TO MONITOR.
[2018-04-20 20:00] VITALS: BP 101/57
[2018-04-20] MEDS: ATORVASTATIN 10 MG TABLET PO SCH (21:08)
[2018-04-20] MEDS: AMITRIPTYLINE HCL 25 MG TABLET PO SCH (21:08)
[2018-04-21] MEDS: VANCOMYCIN 0.75 GM in IV D5W 250 ML IV SCH ×2 (04:19→16:00)
[2018-04-21] MEDS: PIPERACILLIN /TAZOBACTAM 3.375 G in IV D5W 50 ML IV SCH ×4 (06:00→23:46)
[2018-04-21] MEDS: IPRATROPIUM NEB FS 0.5 MG/2.5 ML AMPUL.NEB IH PRN ×2 (06:21→09:21)
[2018-04-21] MEDS: BLOOD SUGAR DIAGNOSTIC 1 EACH STRIP IN SCH ×4 (06:33→21:37)
--- NOTE | 2018-04-21 06:37 | NUR ---
rn ms notes patient with cough requesting for breathing treatment, 02 sat 96%. RR 18
[2018-04-21] MEDS: INSULIN REGULAR, HUMAN 100 UNIT/ML 3 ML VIAL SQ PRN ×3 (06:41→21:39)
[2018-04-21 07:18] LABS: CALCIUM, SERUM 8.1 mg/dL (8.5-10.1); CARBON DIOXIDE 30 mmol/L (21-32); CHLORIDE 101 mmol/L (98-107); CREATININE 0.9 mg/dL (0.6-1.3); GLUCOSE 225 mg/dL (74-106); POTASSIUM 3.9 mmol/L (3.5-5.1); SODIUM SERUM 137 mmol/L (136-145); UREA NITROGEN, BLOOD 9 mg/dL (7-18)
--- NOTE | 2018-04-21 07:25 | NUR ---
RN MS CLOSING NOTES PATIENT IN BED, SLEEPING BUT EASILY AROUSABLE, RESPIRATIONS EVEN AND UNLABORED WITH EQUAL RISE AND FALL OF CHEST, ON 02 2 L VIA NC. DENIES ANY PAIN OR DISCOMFORT AT THIS TIME, IV SITE TO RIGHT AC #18G INTACT AND PATENT, NO REDNESS NO INFILTRATION PRESENT, IVF RUNNING ORDERED, ALL NEEDS ATTENDED AT THIS TIME, NO CHANGES OF CONDITION NOTED THROUGHOUT SHIFT, WILL ENDORSE TO NEXT SHIFT FOR CONTINUITY OF CARE.
--- NOTE | 2018-04-21 07:56 | NUR ---
RN OPENING NOTES RECEIVED PT. PT IS STABLE AND RESTING IN BED, A/OX20. NO S/S OF RESP DISTRESS OR SOB. NO C/O PAIN AT THIS TIME. IV ACCESS LOCATED ON RAC 18G CURRENTLY INFUSING NS AT 100ML/HR. PT TO HAVE SPUTUM CULTURE COLLECTED, WOUND CARE CONSULT AND CXR IN AM. SAFETY MEASURES IN PLACE, CALL LIGHT WITHIN REACH. WILL CONTINUE TO MONITOR. Addendum: 04/22/18 at 0805 by ROSA GARCIA A/OX2*
[2018-04-21 08:00] VITALS: BP 108/54
[2018-04-21] MEDS: PANTOPRAZOLE 40 MG TABLET.DR PO SCH (08:30)
[2018-04-21] MEDS: FOLIC ACID 1 MG TABLET PO SCH (08:30)
[2018-04-21] MEDS: CLOPIDOGREL BISULFATE 75 MG TABLET PO SCH (08:30)
[2018-04-21] MEDS: ESCITALOPRAM OXALATE (10 MG) 10 MG TABLET PO SCH (08:30)
[2018-04-21] MEDS: LORATADINE 10 MG TABLET PO SCH (08:30)
[2018-04-21] MEDS: GABAPENTIN 300 MG CAPSULE PO SCH ×3 (08:30→17:00)
[2018-04-21] MEDS: clonazePAM 0.5 MG TABLET PO SCH ×2 (08:30→21:33)
[2018-04-21] MEDS: ENOXAPARIN SODIUM 30 MG/0.3 ML DISP.SYRIN SQ SCH (08:32)
[2018-04-21 09:00] VITALS: BP 108/54
[2018-04-21] MEDS: METOPROLOL TARTRATE 25 MG TABLET PO SCH ×2 (09:00→21:00)
--- NOTE | 2018-04-21 09:39 | NUR ---
WOUND CARE CONSULT: PT PRESENTS WITH SCAR BEHIND LEFT EAR AND VERY BONY SACRAL AREA, PRESENT ON ADMISSION. PT ON OXYGEN CONTINUOUSLY. SOFT OXYGEN TUBING PLACED BY RN. RECOMMENDATIONS MADE FOR SKIN PROTECTION AND CARE. DISCUSSED WITH NURSING STAFF. PT IS INCONTINENT. WILL SEE PRN. NEFF IN AGREEMENT WITH PLAN OF CARE. Addendum: 04/21/18 at 0941 by CHAVO CHOU WNDNU Amended: Links added.
[2018-04-21 16:00] VITALS: BP 96/48
--- NOTE | 2018-04-21 18:38 | NUR ---
RN CLOSING NOTE PT WAS TO BE DISCHARGED BACK TO [facility]. PRIOR TO LEAVING UNIT, AND ONCE ALREADY LOADED ONTO GURNEY REPEAT BP FOUND THAT PT WAS HYPOTENSIVE. HYPOTENSION CONSISTENT WITH CURRENT STAY'S BP TREND. INFORMED THAT PT WOULD BE PLACED ON "WILL CALL" STATUS WITH AMBULANCE TRANSPORT, UNTIL HYPOTENSION RESOLVES. IV FLUIDS GIVEN. ONCE BACK IN BED PT REFUSED AFTERNOON TREATMENTS STATING "I DONT CARE ANYMORE". PT NO LONGER AGITATED AND MORE COMPLIANT WITH PROCEDURES FOLLOWING DINNER. PT STABLE, A/OX2, HOWEVER OFTEN FORGETFUL. D/C TO BE DELAYED WITH FLUID VOLUME REPLACEMENT TAKES PLACE. SAFETY MEASURES IN PLACE, CALL LIGHT WITHIN REACH. WILL ENDORSE TO RAGMAN FOR RACHAEL.
--- NOTE | 2018-04-21 19:30 | NUR ---
RN INITIAL NOTES Patient received resting in bed, alert, oriented x 2-3, with moments of forgetfulness. On o2 at 2L via nasal cannula. Peripheral IV infusing at this time. No complaints as of this time. As per AM RN, patient is for discharge but is hypotensive. BP checked, 92/49. BP in within trend of patient's BP during hospital stay. Safety measures in place. Will continue to monitor accordingly
[2018-04-21 20:00] VITALS: BP 92/49
[2018-04-21] MEDS: IV NS 0.9% 1,000 ML IV PRN (20:13)
[2018-04-21] MEDS: AMITRIPTYLINE HCL 25 MG TABLET PO SCH (21:33)
[2018-04-21] MEDS: ATORVASTATIN 10 MG TABLET PO SCH (21:33)
[2018-04-21 22:08] VITALS: BP 95/50
--- NOTE | 2018-04-21 22:10 | NUR ---
RN NOTES V/S rechecked: BP- 95/50, TN- 83, SPO2- 98% at 2Lpm via NC
--- NOTE | 2018-04-21 22:30 | NUR ---
RN NOTES Patient asked for something to drink, water with thickener given. Tolerated well
[2018-04-22 00:16] VITALS: BP 95/51
[2018-04-22] MEDS: IPRATROPIUM NEB FS 0.5 MG/2.5 ML AMPUL.NEB IH PRN (01:46)
--- NOTE | 2018-04-22 03:29 | NUR ---
RN NOTES IV on R AV infiltrated. Arm elevated. New IV inserted with good blood return
[2018-04-22] MEDS: VANCOMYCIN 0.75 GM in IV D5W 250 ML IV SCH (03:31)
[2018-04-22 04:53] VITALS: BP 107/59
[2018-04-22] MEDS: PIPERACILLIN /TAZOBACTAM 3.375 G in IV D5W 50 ML IV SCH ×2 (05:25→11:08)
[2018-04-22] MEDS: BLOOD SUGAR DIAGNOSTIC 1 EACH STRIP IN SCH ×2 (06:40→11:54)
[2018-04-22] MEDS: INSULIN REGULAR, HUMAN 100 UNIT/ML 3 ML VIAL SQ PRN ×2 (06:41→11:55)
--- NOTE | 2018-04-22 06:52 | NUR ---
RN CLOSING NOTES Patient in bed, alert, oriented x 2-3. Not in any distress. No complaints as of this time. Peripheral IV g#22 infusing at 100mL/hr. Safety precautions in place. Call amaro within reach, bed in low, locked position. All needs attended to. All due medications given as ordered. Will endorse RACHAEL to AM shift RN
[2018-04-22 08:00] VITALS: BP 95/52
--- NOTE | 2018-04-22 08:05 | NUR ---
RN OPENING NOTES RECEIVED PT. PT IS STABLE AND RESTING IN BED, A/OX2. NO S/S OF RESP DISTRESS OR SOB, HOWEVER PT CONTINUES TO HAVE NON-PRODUCTIVE COUGH. NO C/O PAIN AT THIS TIME. IV ACCESS LOCATED ON RFA 18G CURRENTLY INFUSING NS AT 100ML/HR. DISCHARGE HELD DUE TO [facility]'S REFUSAL TO ADMIT PT WITH LOW BP. RN AT [facility] STATED MINIMUM PARAMETER FOR BP IS 100 SYSTOLIC. WILL CONTINUE IV REHYDRATION, NOTIFY MD AND CONTINUE TO MONITOR BP. SAFETY MEASURES IN PLACE, CALL LIGHT WITHIN REACH. WILL CONTINUE TO MONITOR.
[2018-04-22] MEDS: ESCITALOPRAM OXALATE (10 MG) 10 MG TABLET PO SCH (08:29)
[2018-04-22] MEDS: clonazePAM 0.5 MG TABLET PO SCH (08:29)
[2018-04-22] MEDS: FOLIC ACID 1 MG TABLET PO SCH (08:29)
[2018-04-22] MEDS: PANTOPRAZOLE 40 MG TABLET.DR PO SCH (08:29)
[2018-04-22] MEDS: GABAPENTIN 300 MG CAPSULE PO SCH ×2 (08:29→12:02)
[2018-04-22] MEDS: CLOPIDOGREL BISULFATE 75 MG TABLET PO SCH (08:29)
[2018-04-22] MEDS: METOPROLOL TARTRATE 25 MG TABLET PO SCH (08:37)
[2018-04-22] MEDS: LORATADINE 10 MG TABLET PO SCH (08:37)
[2018-04-22] MEDS: ENOXAPARIN SODIUM 30 MG/0.3 ML DISP.SYRIN SQ SCH (08:45)
[2018-04-22 09:00] VITALS: BP 95/52
--- NOTE | 2018-04-22 10:28 | NUR ---
RN NOTES PT HAD EPISODE OF ASPIRATION AND CHOKING SHORTLY AFTER BREAKFAST. ORAL SUCTIONING PERFORMED, PT AIRWAY WAS CLEARED AND COUGHING CEASED. WILL CONTINUE TO MONITOR.
[2018-04-22 11:21] LABS: CALCIUM, SERUM 7.8 mg/dL (8.5-10.1); CARBON DIOXIDE 29 mmol/L (21-32); CHLORIDE 100 mmol/L (98-107); CREATININE 0.9 mg/dL (0.6-1.3); GLUCOSE 229 mg/dL (74-106); POTASSIUM 3.7 mmol/L (3.5-5.1); SODIUM SERUM 133 mmol/L (136-145); UREA NITROGEN, BLOOD 9 mg/dL (7-18)
[2018-04-22] MEDS ORDERED: GABAPENTIN 300 MG CAPSULE PO PRN (13:00)
--- NOTE | 2018-04-22 16:54 | NUR ---
DISCHARGE NOTE PT DISCHARGED TO [facility]. REPORT CALLED AND GIVEN TO ZOHRA JEWELL OF [facility]. VSS, A/OX2, NO S/S OF SOB, PT ON 2L O2 VIA NC WITH O2 SAT WNL. NO C/O PAIN AT THIS TIME. EXITCARE AND D/C TEACHING PERFORMED. PT VERBALIZED UNDERSTANDING. PT REFUSE PICTURES OF SACRAL AREA AND SKIN CONDITION. ALL DC PAPERWORK SIGNED BY 2 LICENSED STAFF,, COPIED AND PLACED IN CHART. IV ACCESS REMAINS FOR CONT IV ABX THERAPY AT [facility]. ID BAND REMOVED. PT LEFT HOSPITAL IN AMBULANCE WITH PRIVATE TRANSPORTATION PARAMEDICS.
== END 2018-04-22 15:45 | DRG 871 ==
LOC: ER 00:30 → TELE 01:20 → MED 08:56
PROVIDERS: ADMIT Internal Medicine; ATTEND Internal Medicine
DX: A41.9 Sepsis, unspecified organism (principal); J18.9 Pneumonia, unspecified organism; I69.354 Hemiplegia and hemiparesis following cerebral infarction affecting left non-dominant side; N39.0 Urinary tract infection, site not specified; E87.2 Acidosis; I25.10 Atherosclerotic heart disease of native coronary artery without angina pectoris; F03.90 Unspecified dementia, unspecified severity, without behavioral disturbance, psychotic disturbance, mood disturbance, and anxiety; J44.9 Chronic obstructive pulmonary disease, unspecified; I11.0 Hypertensive heart disease with heart failure; I50.9 Heart failure, unspecified; D63.8 Anemia in other chronic diseases classified elsewhere; Z79.84 Long term (current) use of oral hypoglycemic drugs; Z95.1 Presence of aortocoronary bypass graft; Z79.899 Other long term (current) drug therapy; I65.23 Occlusion and stenosis of bilateral carotid arteries; E78.5 Hyperlipidemia, unspecified; E11.51 Type 2 diabetes mellitus with diabetic peripheral angiopathy without gangrene; F32.9 Major depressive disorder, single episode, unspecified; G20 Parkinson's disease; F02.80 Dementia in other diseases classified elsewhere, unspecified severity, without behavioral disturbance, psychotic disturbance, mood disturbance, and anxiety
CPT/HCPCS: 36415; 71045-TC; 80048-TC; 80061-TC; 80076-TC; 80202-TC; 82962-TC; 83605-TC; 83735-TC; 83880; 84100-TC; 84484-TC; 85025-TC; 85378-TC; 87040-TC; 87081-TC; 87086-TC; 92526; 92611-TC; A4606; J1650; J1815; J1956; J2543; J3370; J7030; J7040; J7042; J7050; J7060; Z7610

== ENCOUNTER 2018-09-14 01:07 | Inpatient (IN) | payer MEDICARE, MEDICAID ==
[~2018-09-14] VITALS: Ht 175.3 cm; Wt 58.1 kg
[~2018-09-14 01:07] MED LIST changes: +METF-440 PO; -METF500T6 PO; -SENN-167 PO; +SENN-168 PO
[2018-09-14 01:47] LABS: BASOPHILS % (AUTO) 0.1 % (0.0-2.0); EOSINOPHILS % (AUTO) 0.9 % (0.0-6.0); HEMATOCRIT 32 % (39-51); HEMOGLOBIN 10.6 g/dL (13.5-17.5); LYMPHOCYTES # (AUTO) 1.6 /CMM (0.8-4.8); LYMPHOCYTES % (AUTO) 10.6 % (20.0-44.0); MEAN CORPUSCULAR HGB CONC 34 g/dl (31.0-36.0); MEAN CORPUSCULAR VOLUME 88 fL (80-96); MONOCYTES % (AUTO) 6.3 % (2.0-12.0); NEUTROPHILS # (AUTO) 12.7 /CMM (1.8-8.9); NEUTROPHILS % (AUTO) 82.1 % (43.0-81.0); PLATELET COUNT (AUTO) 280 /CMM (150-450); WHITE BLOOD COUNT (AUTO) 15.4 K/uL (4.3-11.0)
[2018-09-14 01:54] LABS: CALCIUM, SERUM 8.7 mg/dL (8.5-10.1); CARBON DIOXIDE 31 mmol/L (21-32); CHLORIDE 101 mmol/L (98-107); GLUCOSE 124 mg/dL (74-106); POTASSIUM 4.2 mmol/L (3.5-5.1); SODIUM SERUM 137 mmol/L (136-145); UREA NITROGEN, BLOOD 17 mg/dL (7-18)
--- NOTE | 2018-09-14 01:58 | NUR ---
0130 Presented with SOB,awake,alert,O2 sat 100 on NRM 100%,denies any pain
[2018-09-14 02:09] LABS: ALANINE AMINOTRANSFERASE 13 U/L (12-78); ALBUMIN 2.7 g/dL (3.4-5.0); ALKALINE PHOSPHATASE 77 U/L (46-116); ASPARTATE AMINOTRANSFERASE 8 U/L (15-37); B-TYPE NATRIURETIC PEPTIDE 344 PG/ML (0-125); BILIRUBIN,DIRECT 0.1 mg/dL (0.0-0.2); BILIRUBIN,TOTAL 0.3 mg/dL (0.2-1.0); TOTAL PROTEIN, SERUM 8.1 g/dL (6.4-8.2)
[2018-09-14 02:24] LABS: ABG BASE EXCESS 2.2 mmol/L; ABG PCO2 39.9 mmHg (35.0-45.0); ABG PO2 184.1 mmHg (75.0-100.0); COHb 0.1 % (0.5-1.5); MetHb 0.3 % (0.0-1.5); O2Hb 98.6 % (94.0-97.0); SITE, ABG Right Radial; VENT MODE, BG NRB 100%
[2018-09-14] MEDS ORDERED: AZTREONAM 1 G VIAL ONE (02:48)
[2018-09-14] MEDS ORDERED: LEVOFLOXACIN 750 MG /D5W 150ML 150 ML IV ONE (02:48)
[2018-09-14] MEDS ORDERED: AZTREONAM 1 G in IV NS 0.9% 100 ML IV ONE (03:00)
[2018-09-14] MEDS ORDERED: LEVOFLOXACIN 750 MG /D5W 150ML PIGGYBACK IV ONE (03:00)
--- NOTE | 2018-09-14 03:29 | NUR ---
0300 OXYGEN CHANGED TO SIMPLE FACE MASK 12 LITERS
--- NOTE | 2018-09-14 04:25 | NUR ---
0420 tRANSFERED FO ADMISSION TO [facility] RM#[id number] BED #1.REPORT GIVEN TO SAMMY JEWELL
[2018-09-14 04:54] VITALS: BP 101/54
--- NOTE | 2018-09-14 05:00 | NUR ---
MANAGER OF TIRES SALES ADMISSION NOTED RECEIVED PATIENT FROM ER VIA [employer]. DX. SEPSIS PNA. PATIENT IS ALERT AND ORIENTED X2, VERBALLY RESPONSIVE, ABLE TO MAKE NEEDS KNOWN. BREATHING EVEN AND UNLABORED. ON 12LPM OXYGEN VIA SIMPLE MASK. NO DISTRESS NOTED. NO COMPLAINTS OF PAIN OR DISCOMFORT. NO FACIAL GRIMACING. IV ON RIGHT AC# 20 INTACT AND PATENT. SKIN DRY AND WARM TO TOUCH. AFEBRILE. BELONGINGS ACCOUNTED FOR. ORIENTED TO THE USE OF UNIT AMENITIES. SKIN CHECK RENDERED. ALL OTHER NEEDS ATTENDED TO. SAFETY MEASURES IN PLACE. CALL LIGHT WITHIN REACH. WILL CONTINUE TO MONITOR.
[2018-09-14 05:20] VITALS: BP 101/54
[2018-09-14] MEDS ORDERED: INSU100I26 SQ (05:30)
[2018-09-14] MEDS ORDERED: ASCO500T9 PO (05:30)
[2018-09-14] MEDS ORDERED: DEXTROSE 50%-WATER 50 ML DISP.SYRIN IV PRN (05:30)
[2018-09-14] MEDS ORDERED: DOCU100C36 PO (05:30)
[2018-09-14] MEDS ORDERED: MAGN400O6 PO (05:30)
[2018-09-14] MEDS ORDERED: MULT-447 PO (05:30)
[2018-09-14] MEDS ORDERED: OMEG1CAP PO (05:30)
[2018-09-14] MEDS: BLOOD SUGAR DIAGNOSTIC 1 EACH STRIP IN SCH ×4 (06:36→22:37)
--- NOTE | 2018-09-14 06:49 | NUR ---
SYSTEMS ADMINISTRATION ANALYST NOTES MED RECON FAXED TO PHARMACY.
--- NOTE | 2018-09-14 07:15 | NUR ---
HELIARC WELDER/OPENING NOTES RECEIVED PT. IN BED A&OX3. BREATHING UNLABORED ON OXYGEN 12L/MIN VIA SIMPLE MASK. NO SOB. NO S/S OF ACUTE DISTRESS. PT. HAS LEFT SIDED LIP WEAKNESS WHEN SMILING, AND WITH SPEECH. ACCESS IS INTACT AND PATENT. BED IS IN LOWEST, AND LOCKED POSITION. 2 SIDE RAILS UP, AND INSTRUCTED PT. TO USE CALL LIGHT FOR ASSISTANCE. ALL NEEDS MET. WILL CONTINUE TO ASSESS AND MONITOR.
[2018-09-14 07:31] LABS: BASOPHILS % (AUTO) 0.2 % (0.0-2.0); EOSINOPHILS % (AUTO) 0.9 % (0.0-6.0); HEMATOCRIT 30 % (39-51); LYMPHOCYTES # (AUTO) 1.6 /CMM (0.8-4.8); LYMPHOCYTES % (AUTO) 12.8 % (20.0-44.0); MEAN CORPUSCULAR HGB CONC 33 g/dl (31.0-36.0); MEAN CORPUSCULAR VOLUME 88 fL (80-96); MONOCYTES # (AUTO) 0.8 /CMM (0.1-1.30); MONOCYTES % (AUTO) 6.9 % (2.0-12.0); NEUTROPHILS # (AUTO) 9.6 /CMM (1.8-8.9); NEUTROPHILS % (AUTO) 79.2 % (43.0-81.0); PLATELET COUNT (AUTO) 243 /CMM (150-450); RED BLOOD CELL COUNT(AUTO) 3.44 MIL/uL (4.5-6.0); WHITE BLOOD COUNT (AUTO) 12.1 K/uL (4.3-11.0)
[2018-09-14 07:39] LABS: CALCIUM, SERUM 8.1 mg/dL (8.5-10.1); CARBON DIOXIDE 28 mmol/L (21-32); CHLORIDE 100 mmol/L (98-107); CREATININE 0.9 mg/dL (0.6-1.3); GLUCOSE 107 mg/dL (74-106); MAGNESIUM 1.7 mg/dL (1.8-2.4); PHOSPHORUS 3.6 mg/dL (2.5-4.9); POTASSIUM 4.2 mmol/L (3.5-5.1); SODIUM SERUM 138 mmol/L (136-145); UREA NITROGEN, BLOOD 16 mg/dL (7-18)
[2018-09-14 08:00] VITALS: BP 103/57
--- NOTE | 2018-09-14 08:20 | NUR ---
RT NOTE PT FOUND ON A SIMPLE MASK @ 15L, PT SPO2 100% WITH 82HR, RN NOTIFIED ME PT HAS BEEN ON 15L FOR A LONG TIME, TITRATED O2 DOWN TO 6L, PT SPO2 STILL AROUND 99-110% NO SOB, NO RESPIRATORY DISTRESS NOTED AT THIS TIME.
[2018-09-14] MEDS ORDERED: PANTOPRAZOLE 40 MG TABLET.DR PO SCH (08:30)
[2018-09-14] MEDS ORDERED: SENNOSIDES 8.6 MG TABLET PO PRN (08:30)
[2018-09-14] MEDS ORDERED: IPRATROPIUM NEB FS 0.5 MG/2.5 ML AMPUL.NEB IH PRN (08:30)
[2018-09-14] MEDS ORDERED: NA PHOS,M-B/NA PHOS,DI-BA 1 EA ENEMA RC PRN (08:30)
[2018-09-14] MEDS ORDERED: MAGNESIUM HYDROXIDE 30 ML UDC PO PRN (08:30)
[2018-09-14] MEDS ORDERED: MAG HYDROX/AL HYDROX/SIMETH 30 ML UDC PO PRN (08:30)
[2018-09-14] MEDS ORDERED: ACETAMINOPHEN 325 MG TABLET PO PRN (08:30)
--- NOTE | 2018-09-14 08:30 | NUR ---
ON SWALLOW EVALUATION PT. WAS COUGHING AFTER GIVEN NECTAR THICK LIQUIDS AND APPLESAUCE. MD WAS INFORMED AND AGREED TO ORDER A SWALLOW EVALUATION. PT. WAS SEEN BY A SPEECH THERAPIST AND WAS RECOMMENDED A VIDEO SWALLOW EXAM.
[2018-09-14] MEDS: INSULIN GLARGINE, 100 UNIT/ML CARTRIDGE SQ SCH (09:00)
[2018-09-14] MEDS ORDERED: Medication Not On Formulary EA (Omega-3 Fatty Acids/Fish Oil (Fish Oil 1,000 Mg Capsule) PO SCH (09:00)
[2018-09-14] MEDS: CLOPIDOGREL BISULFATE 75 MG TABLET PO SCH ×2 (09:00→11:55)
[2018-09-14] MEDS ORDERED: predniSONE 20 MG TABLET PO SCH (09:00)
[2018-09-14] MEDS ORDERED: ZOLPIDEM TARTRATE 5 MG TABLET PO PRN (09:00)
[2018-09-14] MEDS ORDERED: clonazePAM 0.5 MG TABLET PO SCH (09:00)
[2018-09-14] MEDS: METOPROLOL TARTRATE 25 MG TABLET PO SCH ×2 (09:00→21:00)
[2018-09-14] MEDS: DOCUSATE SODIUM 100 MG CAPSULE PO SCH (09:00)
--- NOTE | 2018-09-14 11:21 | NUR ---
patient refused/ combative
[2018-09-14] MEDS: MULTIVIT W/MINERALS 1 TAB TABLET PO SCH (11:54)
[2018-09-14] MEDS: PANTOPRAZOLE 40 MG VIAL IV SCH (11:54)
[2018-09-14] MEDS: METFORMIN 500 MG TABLET PO SCH ×2 (11:55→17:00)
[2018-09-14] MEDS: FOLIC ACID 1 MG TABLET PO SCH (11:55)
[2018-09-14] MEDS: LORATADINE 10 MG TABLET PO SCH (11:55)
[2018-09-14] MEDS: ESCITALOPRAM OXALATE (10 MG) 10 MG TABLET PO SCH (11:55)
[2018-09-14] MEDS: GABAPENTIN 300 MG CAPSULE PO SCH ×3 (11:55→17:00)
[2018-09-14] MEDS: ASCORBIC ACID 500 MG TABLET PO SCH (11:55)
[2018-09-14] MEDS ORDERED: IV NS 0.9% 250 ML BAG IV ONE (12:00)
[2018-09-14] MEDS: ENOXAPARIN SODIUM 40 MG/0.4 ML DISP.SYRIN SQ SCH (12:01)
--- NOTE | 2018-09-14 12:30 | NUR ---
PT. STARTED TO C/O OF DIFFICULTY BREATHING, AND WAS COUGHING AFTER GIVEN CRUSHED PO MEDICATIONS IN APPLESAUCE. PT.'S O2 SATURATION DECREASED TO 80, AND PT. BECAME BRADYCARDIC. WAS INFORMED AND WAS OKAY TO HOLD MEDICATION, AND PLACE PT. ON NPO TO REDUCE RISK FOR ASPIRATION.
[2018-09-14] MEDS: INSULIN REGULAR, HUMAN 100 UNIT/ML 10 ML VIAL SQ PRN (12:33)
[2018-09-14] MEDS: Magnesium 1GM/D5W 100ML PREMIX 100 ML IV SCH ×2 (13:18→14:27)
[2018-09-14] MEDS ORDERED: IPRATROPIUM NEB FS 0.5 MG/2.5 ML AMPUL.NEB NEB PRN (15:30)
[2018-09-14] MEDS ORDERED: ALBUTEROL FS 2.5 MG/3 ML VIAL.NEB NEB PRN (15:30)
[2018-09-14 16:00] VITALS: BP 105/59
[2018-09-14] MEDS ORDERED: clonazePAM 0.5 MG TABLET PO PRN (17:00)
[2018-09-14] MEDS: ACETYLCYSTEINE 10% SOLN 400 MG/4 ML VIAL NEB SCH ×2 (17:04→23:31)
[2018-09-14] MEDS: methylPREDNISolone SOD SUCC 40 MG/ML VIAL IV SCH (17:44)
[2018-09-14] MEDS ORDERED: FEE PK DOSING 1 MIN EA MC ONE (18:14)
--- NOTE | 2018-09-14 19:45 | NUR ---
HOME SALES SERVICE PROFESSIONAL/CLOSING NOTES RECEIVED PT. IN BED A&OX3. BREATHING UNLABORED ON OXYGEN 2L/MIN VIA NASAL CANNULA. NO SOB. NO S/S OF ACUTE DISTRESS. PT. HAS LEFT SIDED LIP WEAKNESS WHEN SMILING, AND WITH SPEECH. ACCESS IS INTACT AND PATENT. BED IS IN LOWEST, AND LOCKED POSITION. 2 SIDE RAILS UP, AND INSTRUCTED PT. TO USE CALL LIGHT FOR ASSISTANCE. ALL NEEDS MET. WILL ENDORSE REPORT TO NURSE. PT.'S DAUGHTER WILL BE BACK TOMORROW TO HELP HER DAD PARTICIPATE IN A VIDEO SWALLOW EVALUATION, AND WILL BRING NEW ADVANCE DIRECTIVE FORM TO CASE MANAGEMENT OFFICE.
[2018-09-14 20:00] VITALS: BP 107/67
[2018-09-14] MEDS ORDERED: IV 1/2NS 1000 ML 1,000 ML IV PRN (20:00)
--- NOTE | 2018-09-14 20:00 | NUR ---
TELE/RN RECEIVE PATIENT AWAKE, ALERT ORIENTED, COMFORTABLE, NO C/O PAIN, NO DISTRESS NOTED, CALL LIGHT IN REACH. WILL MONITOR.
[2018-09-14] MEDS: ALBUTEROL FS 2.5 MG/3 ML VIAL.NEB NEB SCH (20:01)
[2018-09-14] MEDS: IPRATROPIUM NEB FS 0.5 MG/2.5 ML AMPUL.NEB IH SCH (20:01)
[2018-09-14] MEDS: VANCOMYCIN 1 GM in IV D5W 250 ML IV SCH (20:33)
[2018-09-14] MEDS ORDERED: IV D5/0.45 NACL 1,000 ML IV PRN (21:00)
[2018-09-14] MEDS: PIPERACILLIN /TAZOBACTAM 3.375 G in IV D5W 50 ML IV SCH (21:40)
--- NOTE | 2018-09-14 21:46 | NUR ---
Patient resides at [facility] [phone] currently on bedhold x7days.Requires assistance with adl's. Current dc plan is to return to [facility]. Addendum: 09/14/18 at 2147 by HILLARY BARAJAS RN Amended: Links added.
[2018-09-14] MEDS: AMITRIPTYLINE HCL 25 MG TABLET PO SCH (22:00)
[2018-09-14] MEDS ORDERED: ATORVASTATIN 10 MG TABLET PO SCH (22:00)
--- NOTE | 2018-09-14 22:37 | NUR ---
TELE/RN ACCU CHECK BLOOD SUGAR = 296, DID NOT COVER WITH INSULIN, PATIENT IS NPO.
--- NOTE | 2018-09-14 22:41 | NUR ---
TELE/RN ATTEMPTED TO DO STRAIGHT CATH ORDERED TO OBTAIN URINE SPECIMEN, RESISTANCE NOTED AND UNABLE TO GET THE CATHETER THROUGH THE BLADDER, AND THE PATIENT REFUSED. EXPLAINED IMPORTANCE OF THE ORDER, PATIENT VERBALIZED UNDERSTANDING BUT STILL REFUSED.
[2018-09-15] VITALS: BP 96/45
--- NOTE | 2018-09-15 01:02 | NUR ---
TELE/RN PATIENT IS SLEEPING AT THIS TIME, APPEAR COMFORTABLE, NO SIGNS OF DISTRESS NOTED, CALL LIGHT IN REACH. WILL CONTINUE TO MONITOR.
[2018-09-15] MEDS: IPRATROPIUM NEB FS 0.5 MG/2.5 ML AMPUL.NEB IH SCH ×4 (01:54→19:52)
[2018-09-15] MEDS: ALBUTEROL FS 2.5 MG/3 ML VIAL.NEB NEB SCH ×4 (01:55→19:52)
[2018-09-15] MEDS: PIPERACILLIN /TAZOBACTAM 3.375 G in IV D5W 50 ML IV SCH ×4 (03:32→21:33)
[2018-09-15 04:05] VITALS: BP 103/60
[2018-09-15 06:31] LABS: BASOPHILS % (AUTO) 0.1 % (0.0-2.0); HEMATOCRIT 31 % (39-51); HEMOGLOBIN 10.2 g/dL (13.5-17.5); LYMPHOCYTES # (AUTO) 0.7 /CMM (0.8-4.8); LYMPHOCYTES % (AUTO) 7.7 % (20.0-44.0); MEAN CORPUSCULAR HGB CONC 33 g/dl (31.0-36.0); MEAN CORPUSCULAR VOLUME 89 fL (80-96); MONOCYTES # (AUTO) 0.5 /CMM (0.1-1.30); NEUTROPHILS # (AUTO) 7.7 /CMM (1.8-8.9); NEUTROPHILS % (AUTO) 86.2 % (43.0-81.0); PLATELET COUNT (AUTO) 272 /CMM (150-450); RED BLOOD CELL COUNT(AUTO) 3.47 MIL/uL (4.5-6.0)
--- NOTE | 2018-09-15 06:36 | NUR ---
TELE/RN PATIENT IS AWAKE, ALERT, ORIENTED, COMFORTABLE, NO CHANGE IN CONDITION. ALL NEEDS ATTENDED AT THIS TIME, WILL CONTINUE TO MONITOR.
--- NOTE | 2018-09-15 06:36 | NUR ---
TELE/RN ACCU CHECK BLOOD SUGAR 237, DID NOT COVER, PATIENT IS NPO.
[2018-09-15] MEDS: BLOOD SUGAR DIAGNOSTIC 1 EACH STRIP IN SCH ×4 (06:37→21:35)
[2018-09-15 07:04] LABS: ALANINE AMINOTRANSFERASE 12 U/L (12-78); ALBUMIN 2.5 g/dL (3.4-5.0); ALKALINE PHOSPHATASE 69 U/L (46-116); ASPARTATE AMINOTRANSFERASE 9 U/L (15-37); BILIRUBIN,TOTAL 0.3 mg/dL (0.2-1.0); CALCIUM, SERUM 8.5 mg/dL (8.5-10.1); CARBON DIOXIDE 24 mmol/L (21-32); CHLORIDE 100 mmol/L (98-107); CREATININE 1.2 mg/dL (0.6-1.3); GLUCOSE 258 mg/dL (74-106); MAGNESIUM 2.2 mg/dL (1.8-2.4); PHOSPHORUS 3.9 mg/dL (2.5-4.9); POTASSIUM 4.1 mmol/L (3.5-5.1); SODIUM SERUM 135 mmol/L (136-145); TOTAL PROTEIN, SERUM 7.9 g/dL (6.4-8.2); UREA NITROGEN, BLOOD 18 mg/dL (7-18)
--- NOTE | 2018-09-15 07:25 | NUR ---
HAM ROLLING MACHINE OPERATOR/OPENING NOTES RECEIVED PT. IN BED A&OX3. HOB UP AT 35 DEGREES. BREATHING UNLABORED ON OXYGEN 2L/MIN VIA NASAL CANNULA. NO SOB. NO S/S OF ACUTE DISTRESS. IV FLUIDS RUNNING AT 40 ML/HR. IV ACCESS IS INTACT AND PATENT. BED IS IN LOWEST, AND LOCKED POSITION. 2 SIDE RAILS UP, AND INSTRUCTED PT. TO USE CALL LIGHT FOR ASSISTANCE. ALL NEEDS MET. WILL CONTINUE TO ASSESS AND MONITOR.
[2018-09-15] MEDS: ACETYLCYSTEINE 10% SOLN 400 MG/4 ML VIAL NEB SCH ×3 (07:34→23:43)
[2018-09-15 07:57] VITALS: BP 114/54
[2018-09-15] MEDS: VANCOMYCIN 1 GM in IV D5W 250 ML IV SCH ×2 (08:10→20:11)
[2018-09-15] MEDS: METOPROLOL TARTRATE 25 MG TABLET PO SCH ×3 (09:00→21:35)
[2018-09-15] MEDS: ESCITALOPRAM OXALATE (10 MG) 10 MG TABLET PO SCH ×2 (09:00→12:24)
[2018-09-15] MEDS: ASCORBIC ACID 500 MG TABLET PO SCH ×2 (09:00→12:24)
[2018-09-15] MEDS: GABAPENTIN 300 MG CAPSULE PO SCH ×3 (09:00→17:23)
[2018-09-15] MEDS: METFORMIN 500 MG TABLET PO SCH ×3 (09:00→17:23)
[2018-09-15] MEDS: MULTIVIT W/MINERALS 1 TAB TABLET PO SCH ×2 (09:00→12:23)
[2018-09-15] MEDS: LORATADINE 10 MG TABLET PO SCH ×2 (09:00→12:24)
[2018-09-15] MEDS: CLOPIDOGREL BISULFATE 75 MG TABLET PO SCH ×2 (09:00→12:24)
[2018-09-15] MEDS: DOCUSATE SODIUM 100 MG CAPSULE PO SCH (09:00)
[2018-09-15] MEDS: FOLIC ACID 1 MG TABLET PO SCH ×2 (09:00→12:23)
--- NOTE | 2018-09-15 09:45 | NUR ---
PT. LEFT ROOM FOR A HEAD CT, AND VIDEO SWALLOW EVALUATION.
[2018-09-15] MEDS: ENOXAPARIN SODIUM 40 MG/0.4 ML DISP.SYRIN SQ SCH (10:44)
[2018-09-15] MEDS: INSULIN GLARGINE, 100 UNIT/ML CARTRIDGE SQ SCH (10:48)
[2018-09-15] MEDS: PANTOPRAZOLE 40 MG VIAL IV SCH (10:52)
[2018-09-15] MEDS: methylPREDNISolone SOD SUCC 40 MG/ML VIAL IV SCH (10:52)
--- NOTE | 2018-09-15 11:43 | NUR ---
WOUND CARE CONSULT: PT PRESENTS WITH LEFT SIDED WEAKNESS, SACRAL SCARRING, PRESENT ON ADMISSION. PT 'S DAUGHTER STATES PT HAD SACRAL WOUND PREVIOUSLY. PT ON MARTA ISOFLEX LOW AIRLOSS BED. ALL SKIN PROTECTION RECOMMENDATIONS DISCUSSED WITH NURSING STAFF. MD IN AGREEMENT WITH PLAN OF CARE. CURRENT NELSON SCORE IS 15. Addendum: 09/15/18 at 1144 by CHAVO CHOU WNDNU Amended: Links added.
[2018-09-15] MEDS: Z GUARD REMEDY 2 OZ OINT TP SCH (12:00)
[2018-09-15] MEDS ORDERED: Z GUARD REMEDY 2 OZ OINT TP PRN (12:00)
--- NOTE | 2018-09-15 13:59 | NUR ---
RT NOTE PT MUCOMYST TX GIVEN POST ALBUTEROL AND ATROVENT TREATMENT. NO DISTRESS NOTED. PT AWAKE. DAUGHTER AT BED SIDE. Addendum: 09/15/18 at 1400 by ROSE MARIE ANDRADE RT Amended: Links added.
[2018-09-15] MEDS ORDERED: BARIUM SULFATE 240 ML ORAL.SUSP PO ONE (14:36)
[2018-09-15] MEDS ORDERED: BARIUM SULFATE 148 GM SUSP.RECON PO ONE (14:36)
--- NOTE | 2018-09-15 14:55 | NUR ---
CALLED MD TO INFORM PT.'S CONDITION CHANGED. DISCUSSED WITH MD, PT. STARTED TO C/O DIFFICULTY BREATHING ON OXYGEN AT 2L/MIN VIA NASAL CANNULA. ASSESSED PT.'S SPO2 <89%, PT.'S HEART RATE 110-115BPM, BREATHING RAPIDLY, AND LABORED. SAT PT. HOB 90 DEGREES, PLACED PT. ON A SIMPLE MASK AT 6L/MIN AND WAS ABLE TO MAINTAIN SPO2 AT 91%-95%, GHE 100-110. NEW ORDERS GIVEN FOR 40 MG LASIX IVP, STAT CHEST X RAY AND BREATHING TREATMENT. WILL CONTINUE TO ASSESS AND MONITOR.
[2018-09-15] MEDS ORDERED: FUROSEMIDE 40 MG/4 ML VIAL IV ONE (15:00)
[2018-09-15 15:42] VITALS: BP 128/69
[2018-09-15 16:32] LABS: ABG BASE EXCESS 1.3 mmol/L; ABG OXYGEN SATURATION 96.8 % (92.0-98.5); ABG PCO2 34.8 mmHg (35.0-45.0); ABG PH 7.469 (7.350-7.450); ABG PO2 89.8 mmHg (75.0-100.0); AaDO2 155.4 mmHg; COHb 0.3 % (0.5-1.5); MetHb 0.4 % (0.0-1.5); O2Hb 96.1 % (94.0-97.0); SITE, ABG Right Radial; VENT MODE, BG SM 6L
[2018-09-15] MEDS: INSULIN REGULAR, HUMAN 100 UNIT/ML 10 ML VIAL SQ PRN ×2 (18:51→21:37)
--- NOTE | 2018-09-15 19:57 | NUR ---
DISCUSSED WITH DR. SALDIVAR VIA PHONE PT.'S NEW ABG'S RESULTS, CT OF THE BRAIN, VIDEO SWALLOW EVALUATION, AND PT.'S EPISODE OF RESPIRATORY DISTRESS. PER MD ABG WERE UNREMARKABLE, AND NO NEW ORDERS GIVEN AT THIS TIME.
[2018-09-15 20:00] VITALS: BP 111/72
--- NOTE | 2018-09-15 20:00 | NUR ---
RN CLOSING NOTES PT. IS IN BED A&OX3. HOB UP AT 35 DEGREES. BREATHING UNLABORED ON OXYGEN AT 6L/MIN VIA SIMPLE MASK. NO SOB. NO S/S OF ACUTE DISTRESS. IV FLUIDS DISCONTINUED, AND TELE MONITOR DISCONTINUED TODAY. IV ACCESS IS INTACT AND PATENT. BED IS IN LOWEST, AND LOCKED POSITION. 2 SIDE RAILS UP, AND INSTRUCTED PT. TO USE CALL LIGHT FOR ASSISTANCE. ALL NEEDS MET. WILL ENDORSE REPORT TO NURSE.
--- NOTE | 2018-09-15 20:27 | NUR ---
MS/RN PATIENT IS AWAKE, ALERT, ORIENTED, COMFORTABLE, NO C/O PAIN, NO DISTRESS NOTED, CALL LIGHT IN REACH. WILL MONITOR.
[2018-09-15] MEDS: AMITRIPTYLINE HCL 25 MG TABLET PO SCH (21:35)
--- NOTE | 2018-09-15 22:12 | NUR ---
MS/RN PATIENT IS SLEEPING AT THIS TIME, APPEAR COMFORTABLE, NO SIGNS OF DISTRESS NOTED, CALL LIGHT IN REACH. WILL CONTINUE TO MONITOR.
[2018-09-16] MEDS: IPRATROPIUM NEB FS 0.5 MG/2.5 ML AMPUL.NEB IH SCH ×4 (01:42→19:39)
[2018-09-16] MEDS: ALBUTEROL FS 2.5 MG/3 ML VIAL.NEB NEB SCH ×4 (01:42→19:38)
[2018-09-16] MEDS: PIPERACILLIN /TAZOBACTAM 3.375 G in IV D5W 50 ML IV SCH ×4 (03:05→21:41)
--- NOTE | 2018-09-16 06:28 | NUR ---
MS/RN PATIENT IS AWAKE, COMFORTABLE, NO DISTRESS NOTED, ACCU CHECK BLOD SUGAR=[id number], ALL NEEDS ATTENDED AT THIS TIME, WILL CONTINUE TO MONITOR.
[2018-09-16] MEDS: BLOOD SUGAR DIAGNOSTIC 1 EACH STRIP IN SCH ×4 (06:36→22:26)
--- NOTE | 2018-09-16 07:48 | NUR ---
MS RN NOTES PATIENT RECEIVED RESTING INSIDE ROOM. AWAKE, ALERT AND ORIENTED, VERBALLY RESPONSIVE AND RESPONDS TO VERBAL AND TACTILE STIMULI. BREATHING EVEN AND UNLABORED. NO CHANGES IN LOC NOTED AT THIS TIME. MAINTAINED ASPIRATION PRECAUTION. MAINTAINED HOB ELEVATION AT 35. WILL CONTINUE TO MONITOR. BED LOCKED AND IN LOW POSITION. BILATERAL UPPER SIDE RAILS UP AND LOCKED. CALL LIGHT WITHIN EASY REACH
[2018-09-16 07:50] LABS: CALCIUM, SERUM 8.9 mg/dL (8.5-10.1); CARBON DIOXIDE 29 mmol/L (21-32); CHLORIDE 103 mmol/L (98-107); CREATININE 1.2 mg/dL (0.6-1.3); GLUCOSE 97 mg/dL (74-106); POTASSIUM 3.8 mmol/L (3.5-5.1); SODIUM SERUM 141 mmol/L (136-145); UREA NITROGEN, BLOOD 21 mg/dL (7-18)
[2018-09-16] MEDS: ACETYLCYSTEINE 10% SOLN 400 MG/4 ML VIAL NEB SCH ×2 (07:55→14:30)
[2018-09-16 08:00] VITALS: BP 102/57
[2018-09-16] MEDS: METOPROLOL TARTRATE 25 MG TABLET PO SCH ×2 (09:00→21:42)
[2018-09-16 09:07] LABS: IRON, SERUM 41 ug/dl (50-175); TOTAL IRON BINDING CAPACITY 210 ug/dl (250-450)
[2018-09-16] MEDS: DOCUSATE SODIUM 100 MG CAPSULE PO SCH (09:15)
[2018-09-16] MEDS: ASCORBIC ACID 500 MG TABLET PO SCH (09:15)
[2018-09-16] MEDS: FOLIC ACID 1 MG TABLET PO SCH (09:15)
[2018-09-16] MEDS: GABAPENTIN 300 MG CAPSULE PO SCH ×3 (09:15→17:49)
[2018-09-16] MEDS: MULTIVIT W/MINERALS 1 TAB TABLET PO SCH (09:15)
[2018-09-16] MEDS: LORATADINE 10 MG TABLET PO SCH (09:15)
[2018-09-16] MEDS: ESCITALOPRAM OXALATE (10 MG) 10 MG TABLET PO SCH (09:15)
[2018-09-16] MEDS: METFORMIN 500 MG TABLET PO SCH ×2 (09:15→17:49)
[2018-09-16] MEDS: methylPREDNISolone SOD SUCC 40 MG/ML VIAL IV SCH (09:15)
[2018-09-16] MEDS: CLOPIDOGREL BISULFATE 75 MG TABLET PO SCH (09:15)
[2018-09-16 09:16] LABS: FERRITIN 224 ng/mL (8-388)
[2018-09-16] MEDS: ENOXAPARIN SODIUM 40 MG/0.4 ML DISP.SYRIN SQ SCH (09:17)
[2018-09-16] MEDS: INSULIN GLARGINE, 100 UNIT/ML CARTRIDGE SQ SCH (09:41)
[2018-09-16] MEDS: Z GUARD REMEDY 2 OZ OINT TP SCH (09:49)
[2018-09-16] MEDS: predniSONE 10 MG TABLET PO SCH (12:13)
[2018-09-16] MEDS: PANTOPRAZOLE 40 MG VIAL IV SCH (12:13)
[2018-09-16] MEDS: INSULIN REGULAR, HUMAN 100 UNIT/ML 10 ML VIAL SQ PRN ×3 (12:14→22:32)
[2018-09-16] MEDS: VANCOMYCIN 1 GM in IV D5W 250 ML IV SCH (14:55)
[2018-09-16 16:00] VITALS: BP 101/64
--- NOTE | 2018-09-16 18:52 | NUR ---
MS RN NOTES PATIENT RESTING INSIDE ROOM. AWAKE, ALERT AND ORIENTED, VERBALLY RESPONSIVE AND RESPONDS TO VERBAL AND TACTILE STIMULI. BREATHING EVEN AND UNLABORED. NO ACUTE DISTRESS. DENIES ANY PAIN OR DISCOMFORT. NO CHANGES IN LOC NOTED. MAINTAINED ASPIRATION PRECAUTIONS, WILL ENDORSE TO INCOMING SHIFT FOR RACHAEL. BED LOCKED AND IN LOW POSITION. BILATERAL UPPER SIDE RAILS UP AND LOCKED. CALL LIGHT WITHIN EASY REACH
--- NOTE | 2018-09-16 19:50 | NUR ---
MS RN NOTES RECEIVED PATIENT RESTING INSIDE ROOM. AWAKE, ALERT AND ORIENTED, VERBALLY RESPONSIVE AND RESPONDS TO VERBAL AND TACTILE STIMULI. BREATHING EVEN AND NON LABORED. NO ACUTE DISTRESS NOTED. DENIES ANY PAIN OR DISCOMFORT. ALL SAFETY MEASURES OBSERVED, MAINTAINED ASPIRATION PRECAUTIONS, BED LOCKED AND IN LOW POSITION. BILATERAL UPPER SIDE RAILS UP AND LOCKED. CALL LIGHT WITHIN EASY REACH,IV LINE ON HIS LEFT AC G#20 INTACT AND PATENT. WILL CONTINUE TO MONITOR ACCORDINGLY.
[2018-09-16 20:00] VITALS: BP 104/60
[2018-09-16] MEDS: AMITRIPTYLINE HCL 25 MG TABLET PO SCH (21:41)
[2018-09-17] MEDS: ACETYLCYSTEINE 10% SOLN 400 MG/4 ML VIAL NEB SCH ×4 (00:05→23:59)
[2018-09-17] MEDS: IPRATROPIUM NEB FS 0.5 MG/2.5 ML AMPUL.NEB IH SCH ×4 (00:05→20:10)
[2018-09-17] MEDS: ALBUTEROL FS 2.5 MG/3 ML VIAL.NEB NEB SCH ×4 (00:05→20:09)
[2018-09-17] MEDS: PIPERACILLIN /TAZOBACTAM 3.375 G in IV D5W 50 ML IV SCH ×4 (03:01→22:11)
--- NOTE | 2018-09-17 06:38 | NUR ---
MS RN NOTES PATIENT RESTING COMFORTABLY, AWAKE, ALERT AND ORIENTED, VERBALLY RESPONSIVE AND RESPONDS TO VERBAL AND TACTILE STIMULI. BREATHING EVEN AND NON LABORED. NO ACUTE DISTRESS NOTED. DENIES ANY PAIN OR DISCOMFORT. ALL SAFETY MEASURES OBSERVED, MAINTAINED ASPIRATION PRECAUTIONS, BED LOCKED AND IN LOW POSITION. BILATERAL UPPER SIDE RAILS UP AND LOCKED. CALL LIGHT WITHIN EASY REACH,IV LINE ON HIS LEFT AC G#20 INTACT AND PATENT. WILL ENDORSE TO AM NURSE FOR CONTINUITY OF CARE.
[2018-09-17 07:29] LABS: CALCIUM, SERUM 8.8 mg/dL (8.5-10.1); CARBON DIOXIDE 30 mmol/L (21-32); CHLORIDE 103 mmol/L (98-107); GLUCOSE 96 mg/dL (74-106); POTASSIUM 3.7 mmol/L (3.5-5.1); SODIUM SERUM 141 mmol/L (136-145); UREA NITROGEN, BLOOD 21 mg/dL (7-18)
--- NOTE | 2018-09-17 07:44 | NUR ---
MS RN NOTES PATIENT RECEIVED RESTING INSIDE ROOM. AWAKE, ALERT AND ORIENTED, VERBALLY RESPONSIVE AND RESPONDS TO VERBAL AND TACTILE STIMULI. BREATHING EVEN AND UNLABORED. NO ACUTE DISTRESS, DENIES ANY PAIN OR DISCOMFORT. NO CHANGES IN LOC NOTED AT THIS TIME. WILL CONTINUE TO MONITOR. MAINTAINED ASPIRATION PRECAUTIONS. BED LOCKED AND IN LOW POSITION. BILATERAL UPPER SIDE RAILS UP AND LOCKED. CALL LIGHT WITHIN EASY REACH
[2018-09-17] MEDS: VANCOMYCIN 1 GM in IV D5W 250 ML IV SCH (07:59)
[2018-09-17 08:00] VITALS: BP 102/42
[2018-09-17] MEDS: BLOOD SUGAR DIAGNOSTIC 1 EACH STRIP IN SCH ×4 (08:14→22:52)
[2018-09-17] MEDS: ENOXAPARIN SODIUM 40 MG/0.4 ML DISP.SYRIN SQ SCH (08:40)
[2018-09-17] MEDS: METFORMIN 500 MG TABLET PO SCH ×2 (08:41→17:07)
[2018-09-17] MEDS: predniSONE 10 MG TABLET PO SCH (08:41)
[2018-09-17] MEDS: DOCUSATE SODIUM 100 MG CAPSULE PO SCH (08:41)
[2018-09-17] MEDS: ESCITALOPRAM OXALATE (10 MG) 10 MG TABLET PO SCH (08:41)
[2018-09-17] MEDS: LORATADINE 10 MG TABLET PO SCH (08:41)
[2018-09-17] MEDS: MULTIVIT W/MINERALS 1 TAB TABLET PO SCH (08:41)
[2018-09-17] MEDS: ASCORBIC ACID 500 MG TABLET PO SCH (08:45)
[2018-09-17] MEDS: CLOPIDOGREL BISULFATE 75 MG TABLET PO SCH (08:45)
[2018-09-17] MEDS: FOLIC ACID 1 MG TABLET PO SCH (08:45)
[2018-09-17] MEDS: GABAPENTIN 300 MG CAPSULE PO SCH ×3 (08:47→17:07)
[2018-09-17] MEDS: METOPROLOL TARTRATE 25 MG TABLET PO SCH ×2 (08:48→22:12)
[2018-09-17] MEDS: Z GUARD REMEDY 2 OZ OINT TP SCH (08:49)
[2018-09-17] MEDS: INSULIN GLARGINE, 100 UNIT/ML CARTRIDGE SQ SCH (08:52)
[2018-09-17] MEDS: PANTOPRAZOLE 40 MG VIAL IV SCH (12:17)
[2018-09-17 16:00] VITALS: BP 86/48
[2018-09-17] MEDS: INSULIN REGULAR, HUMAN 100 UNIT/ML 10 ML VIAL SQ PRN ×2 (17:08→22:56)
--- NOTE | 2018-09-17 18:20 | NUR ---
MS RN NOTES PATIENT RESTING INSIDE ROOM. AWAKE, ALERT AND ORIENTED, VERBALLY RESPONSIVE AND RESPONDS TO VERBAL AND TACTILE STIMULI. BREATHING EVEN AND UNLABORED. NO ACUTE DISTRESS AT THIS TIME. PATIENT CALM AND RELAXED. NO CHANGES IN LOC NOTED AT THIS TIME. OXYGEN AT 2L/MIN VIA NC. PATIENT DENIES ANY PAIN OR DISCOMFORT. PATIENT KEPT CLEAN, DRY AND COMFORTABLE. WILL ENDORSE TO INCOMING SHIFT FOR RACHAEL. BED LOCKED AND IN LOW POSITION. BILATERAL UPPER SIDE RAILS UP AND LOCKED. CALL LIGHT WITHIN EASY REACH
[2018-09-17 20:42] VITALS: BP 98/75
[2018-09-17 21:00] VITALS: BP 108/75
[2018-09-17] MEDS: AMITRIPTYLINE HCL 25 MG TABLET PO SCH (22:12)
[2018-09-18] MEDS: ALBUTEROL FS 2.5 MG/3 ML VIAL.NEB NEB SCH ×3 (01:59→13:29)
[2018-09-18] MEDS: IPRATROPIUM NEB FS 0.5 MG/2.5 ML AMPUL.NEB IH SCH ×3 (01:59→13:29)
[2018-09-18] MEDS: VANCOMYCIN 1 GM in IV D5W 250 ML IV SCH (02:00)
--- NOTE | 2018-09-18 02:22 | NUR ---
RN NOTES CALLED AND SPOKE TO DR. April JARQUIN, INFORMED HIM REGARDING VANCO TROUGH RESULT OF 25 ug/ml, NO ORDERS MADE.
[2018-09-18] MEDS: PIPERACILLIN /TAZOBACTAM 3.375 G in IV D5W 50 ML IV SCH ×2 (02:43→08:44)
[2018-09-18 07:05] LABS: CARBON DIOXIDE 29 mmol/L (21-32); CHLORIDE 103 mmol/L (98-107); CREATININE 1.2 mg/dL (0.6-1.3); GLUCOSE 90 mg/dL (74-106); POTASSIUM 3.8 mmol/L (3.5-5.1); SODIUM SERUM 141 mmol/L (136-145); UREA NITROGEN, BLOOD 17 mg/dL (7-18)
--- NOTE | 2018-09-18 07:41 | NUR ---
MS RN NOTES PATIENT RECEIVED RESTING INSIDE ROOM. AWAKE, ALERT AND ORIENTED, VERBALLY RESPONSIVE AND RESPONDS TO VERBAL AND TACTILE STIMULI. BREATHING EVEN AND UNLABORED. NO ACUTE DISTRESS NOTED. PATIENT CALM AND RELAXED. OXYGEN AT 2L/MIN. NO CHANGES IN LOC NOTED AT THIS TIME. IV INTACT AND PATENT. WILL CONTINUE TO MONITOR. BED LOCKED AND IN LOW POSITION. BILATERAL UPPER SIDE RAILS UP AND LOCKED. CALL LIGHT WITHIN EASY REACH
[2018-09-18] MEDS: ACETYLCYSTEINE 10% SOLN 400 MG/4 ML VIAL NEB SCH (07:48)
[2018-09-18 08:00] VITALS: BP 118/66
[2018-09-18] MEDS: BLOOD SUGAR DIAGNOSTIC 1 EACH STRIP IN SCH ×2 (08:27→12:10)
[2018-09-18 08:32] VITALS: BP 118/66
[2018-09-18] MEDS: Z GUARD REMEDY 2 OZ OINT TP SCH (08:32)
[2018-09-18] MEDS: FOLIC ACID 1 MG TABLET PO SCH (08:32)
[2018-09-18] MEDS: DOCUSATE SODIUM 100 MG CAPSULE PO SCH (08:32)
[2018-09-18] MEDS: METOPROLOL TARTRATE 25 MG TABLET PO SCH (08:32)
[2018-09-18] MEDS: GABAPENTIN 300 MG CAPSULE PO SCH ×2 (08:35→12:10)
[2018-09-18] MEDS: ASCORBIC ACID 500 MG TABLET PO SCH (08:35)
[2018-09-18] MEDS: predniSONE 10 MG TABLET PO SCH (08:35)
[2018-09-18] MEDS: MULTIVIT W/MINERALS 1 TAB TABLET PO SCH (08:35)
[2018-09-18] MEDS: METFORMIN 500 MG TABLET PO SCH (08:35)
[2018-09-18] MEDS: CLOPIDOGREL BISULFATE 75 MG TABLET PO SCH (08:35)
[2018-09-18] MEDS: ESCITALOPRAM OXALATE (10 MG) 10 MG TABLET PO SCH (08:35)
[2018-09-18] MEDS: ENOXAPARIN SODIUM 40 MG/0.4 ML DISP.SYRIN SQ SCH (08:37)
[2018-09-18] MEDS: INSULIN GLARGINE, 100 UNIT/ML CARTRIDGE SQ SCH (08:38)
[2018-09-18] MEDS: LORATADINE 10 MG TABLET PO SCH (08:44)
[2018-09-18] MEDS ORDERED: ZOLPIDEM TARTRATE 5 MG TABLET PO PRN (10:00)
[2018-09-18] MEDS: PANTOPRAZOLE 40 MG VIAL IV SCH (10:56)
--- NOTE | 2018-09-18 14:20 | NUR ---
MS RN NOTES PATIENT WITH ORDER FROM DR. JARQUIN TO BE DISCHARGED. RECEIVED CALL FROM CASE MANAGEMENT REGARDING PATIENT TRANSFER BACK TO [facility] ([phone]). PLACED CALL AND GAVE REPORT TO ZOHRA RN. PATIENT MADE AWARE AND VERBALIZED UNDERSTANDING. WILL CONTINUE TO MONITOR
--- NOTE | 2018-09-18 15:41 | NUR ---
MS RN NOTES PATIENT FOR DISCHARGE TODAY. [facility] DISCHARGE INSTRUCTIONS AND EDUCATION GIVEN AND PATIENT VERBALIZED UNDERSTANDING. ALL BELONGINGS COMPLETE ON DISCHARGE, NO REPORT OF MISSING INVENTORY. IV REMOVED WITH MINIMAL BLEEDING NOTED, PRESSURE DRESSING PLACED ON SITE. PATIENT LEFT UNIT VIA GURNEY AT 1530 IN STABLE CONDITION. BREATHING EVEN AND UNLABORED. NO ACUTE DISTRESS. DENIES ANY PAIN OR DISCOMFORT. NO NEW SKIN BREAKDOWN NOTED. MD AWARE OF DISCHARGE
== END 2018-09-18 15:00 | DRG 871 ==
LOC: ER 01:13 → TELE 03:34 → MED 09-15 08:56
PROVIDERS: ADMIT Internal Medicine; ATTEND Internal Medicine Nephrology
DX: A41.9 Sepsis, unspecified organism (principal); G92 Toxic encephalopathy; J96.01 Acute respiratory failure with hypoxia; J69.0 Pneumonitis due to inhalation of food and vomit; I69.354 Hemiplegia and hemiparesis following cerebral infarction affecting left non-dominant side; F03.90 Unspecified dementia, unspecified severity, without behavioral disturbance, psychotic disturbance, mood disturbance, and anxiety; I25.10 Atherosclerotic heart disease of native coronary artery without angina pectoris; E11.51 Type 2 diabetes mellitus with diabetic peripheral angiopathy without gangrene; Z95.1 Presence of aortocoronary bypass graft; Z87.891 Personal history of nicotine dependence; Z87.01 Personal history of pneumonia (recurrent); Z79.02 Long term (current) use of antithrombotics/antiplatelets; I65.23 Occlusion and stenosis of bilateral carotid arteries; J44.9 Chronic obstructive pulmonary disease, unspecified; G40.909 Epilepsy, unspecified, not intractable, without status epilepticus; F32.9 Major depressive disorder, single episode, unspecified; E78.5 Hyperlipidemia, unspecified; D64.9 Anemia, unspecified; Z79.84 Long term (current) use of oral hypoglycemic drugs; Z79.899 Other long term (current) drug therapy; E83.42 Hypomagnesemia; F09 Unspecified mental disorder due to known physiological condition; I50.9 Heart failure, unspecified; I11.0 Hypertensive heart disease with heart failure; G47.00 Insomnia, unspecified; G20 Parkinson's disease; R13.10 Dysphagia, unspecified; Y95 Nosocomial condition
CPT/HCPCS: 31720; 36415; 36600; 70450-TC; 71045-TC; 74230-TC; 80048-TC; 80053-TC; 80076-TC; 80202-TC; 82728-TC; 82803-TC; 82962-TC; 83540-TC; 83605-TC; 83735-TC; 83880; 84100-TC; 84484-TC; 85025-TC; 85730-TC; 87040-TC; 87081-TC; 92526; 92611-TC; 93307-TC; 94799-TC; C9113; G0378; J1650; J1815; J1940; J1956; J2543; J2920; J3370; J3475; J3490; J7030; J7060

== ENCOUNTER 2019-05-09 16:54 | Inpatient (IN) | payer MEDICARE, MEDICAID ==
[~2019-05-09] VITALS: Ht 170.2 cm; Wt 54.9 kg
[~2019-05-09 16:54] MED LIST changes: +ASCO500T9 PO; +BISA10SU11 RC; -BISA10SU8 RC; +DOCU100C36 PO; +INSU100I26 SQ; +MULT-447 PO; +OMEG1CAP PO
[2019-05-09] MEDS ORDERED: ENOX40DI SQ (17:13)
[2019-05-09] MEDS ORDERED: INSU100V30 IJ (17:13)
[2019-05-09] MEDS ORDERED: ACET100V4 MC (17:13)
[2019-05-09 17:35] LABS: BASOPHILS % (AUTO) 0.3 % (0.0-2.0); EOSINOPHILS % (AUTO) 1.9 % (0.0-6.0); HEMATOCRIT 30 % (39-51); HEMOGLOBIN 9.9 g/dL (13.5-17.5); LYMPHOCYTES # (AUTO) 1.7 /CMM (0.8-4.8); LYMPHOCYTES % (AUTO) 14.8 % (20.0-44.0); MEAN CORPUSCULAR HGB CONC 33 g/dl (31.0-36.0); MEAN CORPUSCULAR VOLUME 91 fL (80-96); MONOCYTES # (AUTO) 0.9 /CMM (0.1-1.30); MONOCYTES % (AUTO) 7.7 % (2.0-12.0); NEUTROPHILS # (AUTO) 8.5 /CMM (1.8-8.9); NEUTROPHILS % (AUTO) 75.3 % (43.0-81.0); PLATELET COUNT (AUTO) 189 /CMM (150-450); WHITE BLOOD COUNT (AUTO) 11.3 K/uL (4.3-11.0)
[2019-05-09 17:43] LABS: CALCIUM, SERUM 9.2 mg/dL (8.5-10.1); CARBON DIOXIDE 29 mmol/L (21-32); CHLORIDE 103 mmol/L (98-107); CREATININE 1.2 mg/dL (0.6-1.3); GLUCOSE 106 mg/dL (74-106); SODIUM SERUM 140 mmol/L (136-145); UREA NITROGEN, BLOOD 28 mg/dL (7-18)
[2019-05-09 17:49] LABS: ALANINE AMINOTRANSFERASE 15 U/L (12-78); ALBUMIN 2.7 g/dL (3.4-5.0); ALKALINE PHOSPHATASE 70 U/L (46-116); ASPARTATE AMINOTRANSFERASE 10 U/L (15-37); BILIRUBIN,DIRECT 0.1 mg/dL (0.0-0.2); BILIRUBIN,TOTAL 0.1 mg/dL (0.2-1.0); TOTAL PROTEIN, SERUM 7.3 g/dL (6.4-8.2)
[2019-05-09] MEDS ORDERED: PIPERACILLIN /TAZOBACTAM 3.375 G in IV D5W 50 ML IV ONE (18:30)
--- NOTE | 2019-05-09 18:41 | NUR ---
SENT BY PMD FOR ELEVATED WBC AND 2 EPISODES OF SOB; NO SOB NOW. PT AAOX3, VSS. DENIES CP, DIZZINESS, N/V @ THIS TIME. SEEN & EVAL'D BY DR. ZABALA. WILL CONT TO MONITOR.
--- NOTE | 2019-05-09 18:56 | NUR ---
called houseperson for DOMINIQUE bed
--- NOTE | 2019-05-09 19:19 | NUR ---
PT RECEIVED FROM [facility] [place] FOR RACHAEL. PT IN BED EATING. NAD NOTED.
--- NOTE | 2019-05-09 19:42 | NUR ---
DOMINIQUE 104
[2019-05-09 20:00] LABS: APPEARANCE,URINE Slightly Cloudy (CLEAR); BILIRUBIN,URINE Negative (NEGATIVE); BLOOD, URINE Moderate Ery/uL (NEGATIVE); COLOR,URINE Yellow (YELLOW); KETONES,URINE Negative (NEGATIVE); LEUKOCYTE ESTERASE ,URINE Negative (NEGATIVE); NITRITE, URINE Negative (NEGATIVE); PH,URINE 5.5 (5.0-8.0); PROTEIN,URINE Negative (NEGATIVE); UGLUCOSE Negative (NEGATIVE); UROBILINOGEN,URINE 0.2 EU/dL (0.2)
--- NOTE | 2019-05-09 20:33 | NUR ---
REPORT GIVEN TO [facility] [place] FOR RACHAEL. TO DOMINIQUE 104
--- NOTE | 2019-05-09 20:38 | NUR ---
RECEIVED REPORT FROM [facility] [place] FOR RACHAEL.
[2019-05-09 20:45] VITALS: BP 96/51
--- NOTE | 2019-05-09 20:48 | NUR ---
PTY TRANSPORTED TO UNIT WITH EMT AND RN AT BEDSIDE W/ ACLS PROTOCOL. NAD NOTED DURING TRANSPORT.
[2019-05-09 20:54] LABS: BACTERIA,URINE Few /HPF (None Seen); SQUAMOUS EPITHELIAL CELL,UR Few /HPF (None Seen); WBC,URINE 0-2 /HPF (0-3)
--- NOTE | 2019-05-09 21:33 | NUR ---
DOMINIQUE RN OPENING/ADMITTING NOTES RECEIVED PATIENT VIA GURNEY WITH STILL CLEANER TUBE, AWAKE, A/OX3, LETHARGIC. , ALYCIA, AT BEDSIDE. ON OXYGEN 3LPM VIA NASAL CANNULA, TOLERATING WELL, NO SOB OR RESPIRATORY DISTRESS NOTED. NOT COMPLAINING OF ANY PAIN AT THE MOMENT. ON TELE MONITOR SINUS TACHY WITH HR 100S. IV ACCES NOTED ON LEFT AC 22G, DRESSING INTACT AND FLUSHES WELL, SALINE LOCKED. PATIENT ENCOURAGED TO CALL FOR HELP AND ASSISTANCE. SAFETY MEASURES OBSERVED AND MAINTAINED; HOB ELEVATED, SIDE RAILS UP X2, BED LOW AND LOCKED POSITION, CALL LIGHT WITHIN REACH, BED ALARM ON. PAGED FOR ADMITTING ORDERS AT 2133, STATED HE WILL PUT IN ORDERS. WILL CONT TO MONITOR PT CLOSELY. Addendum: 05/09/19 at 2138 by FRANCHESCA WALLACE RN PHYSICAL/SKIN ASSESSMENT DONE AND RECORDED. VITAL SIGNS: 96/51, HR 101, TEMP 99.4, O2SAT 96, RR 20. PATIENT BELONGINGS BROUGHT HOME BY .
--- NOTE | 2019-05-09 22:38 | NUR ---
RN NOTES PAGED MD AGAIN FOR ADMITTING ORDERS AND PATIENT SLIGHTLY ELEVATED TEMP. ORDERED CARDIAC DIET AND STATED HE WILL PUT IN THE REST OF THE ORDERS. WILL ATTEND TO ORDER AND CONT TO MONITOR PT.
[2019-05-09] MEDS ORDERED: BISACODYL SUPP (10 MG) 10 MG/SUPP.RECT SUPP.RECT RC PRN (23:00)
[2019-05-09] MEDS ORDERED: MISCELLANEOUS MED 1 EA EA PO PRN (23:00)
[2019-05-09] MEDS ORDERED: MAGNESIUM HYDROXIDE 30 ML UDC PO PRN (23:00)
[2019-05-09] MEDS ORDERED: NA PHOS,M-B/NA PHOS,DI-BA 1 EA ENEMA RC PRN (23:00)
[2019-05-09] MEDS ORDERED: IPRATROPIUM NEB FS 0.5 MG/2.5 ML AMPUL.NEB IH PRN (23:00)
[2019-05-09] MEDS ORDERED: ACETAMINOPHEN 325 MG TABLET PO PRN ×2 (23:00→23:30)
[2019-05-09] MEDS ORDERED: Z GUARD REMEDY 2 OZ OINT TP PRN (23:30)
[2019-05-09] MEDS ORDERED: ZOLPIDEM TARTRATE 5 MG TABLET PO PRN (23:30)
[2019-05-09] MEDS ORDERED: HYDROCODONE/APAP 5/325MG 1 EACH TABLET PO PRN (23:30)
[2019-05-09] MEDS ORDERED: ONDANSETRON HCL/PF 4 MG/2 ML VIAL IVP PRN (23:30)
[2019-05-09] MEDS ORDERED: ACETYLCYSTEINE 10% 3,000 MG/30 ML VIAL MC SCH (23:30)
[2019-05-09] MEDS ORDERED: VANCOMYCIN 1 GM in IV D5W 250ml IV ONE (23:45)
[2019-05-09] MEDS ORDERED: VANCOMYCIN 1 GM VIAL ONE (23:53)
[2019-05-10] VITALS (7 sets, daily range): BP systolic 89–101; BP diastolic 47–58
--- NOTE | 2019-05-10 01:10 | NUR ---
0110 SPOKE WITH PATIENT'S AND UPDATED HER ON PATIENT'S CONDITION AND CURRENT PLAN OF CARE WITH ALL OF HER QUESTIONS ANSWERED.
--- NOTE | 2019-05-10 01:10 | NUR ---
NO ENDORSEMENT WAS GIVEN BY AM RT ABOUT THE PATIENT WITH TREATMENT UNTIL NOTIFIED BY RN. PATIENT IS STABLE ON 2LNC WITH NO DISTRESS/SOB NOTED. Addendum: 05/10/19 at 0112 by FRANCISCO MEDRANO RT Amended: Links added.
[2019-05-10] MEDS ORDERED: PIPERACILLIN /TAZOBACTAM 3.375 G VIAL IV ONE (04:49)
[2019-05-10] MEDS ORDERED: PIPERACILLIN /TAZOBACTAM 2.25 G VIAL IV ONE (04:50)
[2019-05-10] MEDS ORDERED: PIPERACILLIN /TAZOBACTAM 2.255 G in IV D5W 50 ML IV SCH (05:00)
[2019-05-10 06:19] LABS: BASOPHILS % (AUTO) 0.1 % (0.0-2.0); EOSINOPHILS % (AUTO) 2.9 % (0.0-6.0); HEMATOCRIT 30 % (39-51); HEMOGLOBIN 10.2 g/dL (13.5-17.5); LYMPHOCYTES % (AUTO) 18.2 % (20.0-44.0); MEAN CORPUSCULAR HGB CONC 34 g/dl (31.0-36.0); MEAN CORPUSCULAR VOLUME 89 fL (80-96); MONOCYTES % (AUTO) 9.3 % (2.0-12.0); NEUTROPHILS # (AUTO) 7.5 /CMM (1.8-8.9); NEUTROPHILS % (AUTO) 69.5 % (43.0-81.0); PLATELET COUNT (AUTO) 182 /CMM (150-450); RED BLOOD CELL COUNT(AUTO) 3.37 MIL/uL (4.5-6.0); WHITE BLOOD COUNT (AUTO) 10.8 K/uL (4.3-11.0)
[2019-05-10 06:35] LABS: CALCIUM, SERUM 8.8 mg/dL (8.5-10.1); CREATININE 1.1 mg/dL (0.6-1.3); MAGNESIUM 1.8 mg/dL (1.8-2.4); PHOSPHORUS 2.8 mg/dL (2.5-4.9); POTASSIUM 4.4 mmol/L (3.5-5.1)
--- NOTE | 2019-05-10 07:00 | NUR ---
DOMINIQUE RN CLOSING NOTES PATIENT SLEEPING IN BED, BUT EASY TO AROUSE, A/OX3. ON OXYGEN 2LPM VIA NASAL CANNULA, TOLERATING WELL, NO SOB OR RESPIRATORY DISTRESS NOTED. ON TELE MONITOR SRSINUS TACH WITH HR 100S. IV ACCES NOTED ON LEFT AC 22G, DRESSING INTACT AND FLUSHES WELL, SALINE LOCKED. PATIENT ENCOURAGED TO CALL FOR HELP AND ASSISTANCE. SAFETY MEASURES OBSERVED AND MAINTAINED; HOB ELEVATED, SIDE RAILS UP X2, BED LOW AND LOCKED POSITION, CALL LIGHT WITHIN REACH, BED ALARM ON. PAGED FOR ADMITTING ORDERS AT 2133, STATED HE WILL PUT IN ORDERS. WILL CONT TO MONITOR PT CLOSELY. Addendum: 05/10/19 at 0712 by FRANCHESCA WALLACE RN CLARIFICATION: ON TELE MONITOR SR-ST WITH HR 100S. ALL MD ORDERS ATTENDED, ALL NEEDS ANTICIPATED AND MET. ENDORSED TO AM RN FOR RACHAEL.
[2019-05-10] MEDS ORDERED: FEE PK DOSING 1 MIN EA MC ONE (07:32)
[2019-05-10] MEDS ORDERED: ACETYLCYSTEINE 10% SOLN 400 MG/4 ML VIAL IH SCH (07:35)
[2019-05-10] MEDS: ACETYLCYSTEINE 10% SOLN 400 MG/4 ML VIAL IH SCH ×3 (07:35→23:36)
[2019-05-10] MEDS: PANTOPRAZOLE 40 MG TABLET.DR PO SCH (07:46)
--- NOTE | 2019-05-10 08:07 | NUR ---
received pt from warehouse worker 2nd shift, alert, follows commands, SR, on 2L 02 sat well, tolerates diet, diaper on, v/s stable, no pain, pt turned and repositioned.
[2019-05-10] MEDS: CLOPIDOGREL BISULFATE 75 MG TABLET PO SCH (08:24)
[2019-05-10] MEDS: clonazePAM 0.5 MG TABLET PO SCH ×2 (08:24→21:53)
[2019-05-10] MEDS: METFORMIN 500 MG TABLET PO SCH ×2 (08:24→17:44)
[2019-05-10] MEDS: DOCUSATE SODIUM 100 MG CAPSULE PO SCH (08:24)
[2019-05-10] MEDS: MULTIVIT W/MINERALS 1 TAB TABLET PO SCH (08:24)
[2019-05-10] MEDS: LORATADINE 10 MG TABLET PO SCH (08:24)
[2019-05-10] MEDS: FOLIC ACID 1 MG TABLET PO SCH (08:24)
[2019-05-10] MEDS: GABAPENTIN 300 MG CAPSULE PO SCH ×3 (08:24→17:07)
[2019-05-10] MEDS: METOPROLOL TARTRATE 25 MG TABLET PO SCH ×2 (08:25→20:27)
[2019-05-10] MEDS: ENOXAPARIN SODIUM 40 MG/0.4 ML DISP.SYRIN SQ SCH (08:28)
[2019-05-10] MEDS ORDERED: Medication Not On Formulary EA (Multivitamin With Minerals (One Daily Complete) 1 EACH) PO SCH (09:00)
[2019-05-10] MEDS: INSULIN GLARGINE, 100 UNIT/ML CARTRIDGE SQ SCH (09:23)
[2019-05-10] MEDS: PIPERACILLIN /TAZOBACTAM 3.375 G in IV D5W 50 ML IV SCH ×3 (11:34→23:40)
[2019-05-10] MEDS: VANCOMYCIN 0.75 GM in IV D5W 250 ML IV SCH (11:58)
--- NOTE | 2019-05-10 16:07 | NUR ---
pt is resting in the bed, a/o x4, v/s stable, no pain, pt cleaned and changed.
--- NOTE | 2019-05-10 19:00 | NUR ---
RN OPENING NOTES PATIENT SLEEPING IN BED, AROUSABLE THROUGH TOUCH, A/OX3. ON OXYGEN 2LPM VIA NASAL CANNULA, TOLERATING WELL, NO SOB OR RESPIRATORY DISTRESS NOTED. ON TELE MONITOR SR WITH HR 90S. IV ACCESS ON LEFT AC 22G, FLUSHING AND PATENT, SL. PATIENT ENCOURAGED TO CALL FOR HELP AND ASSISTANCE. SAFETY MEASURES OBSERVED AND MAINTAINED; HOB ELEVATED 30 DEGREES AT ALL TIMES, SIDE RAILS UP X2, BED LOW AND LOCKED POSITION, CALL LIGHT WITHIN REACH, BED ALARM ON. WILL CONT TO MONITOR PT CLOSELY.
[2019-05-10] MEDS ORDERED: AMITRIPTYLINE HCL 25 MG TABLET ONE (21:39)
--- NOTE | 2019-05-10 21:43 | NUR ---
RN NOTES UPDATED PATIENT'S DAUGHTER VIA PHONE AND UPDATED HER ON PATIENT'S CONDITION AND CURRENT PLAN OF CARE; ALL QUESTIONS ANSWERED.
[2019-05-10] MEDS: ATORVASTATIN 10 MG TABLET PO SCH (21:53)
[2019-05-10] MEDS: AMITRIPTYLINE HCL 25 MG TABLET PO SCH (21:54)
[2019-05-10] MEDS ORDERED: Medication Not On Formulary EA (Melatonin 10 MG) PO SCH (22:00)
[2019-05-11] VITALS (8 sets, daily range): BP systolic 87–110; BP diastolic 51–67
[2019-05-11] MEDS: VANCOMYCIN 0.75 GM in IV D5W 250 ML IV SCH ×3 (00:29→23:14)
[2019-05-11] MEDS: PIPERACILLIN /TAZOBACTAM 3.375 G in IV D5W 50 ML IV SCH ×3 (05:49→18:39)
[2019-05-11 06:31] LABS: CALCIUM, SERUM 8.8 mg/dL (8.5-10.1); CREATININE 1.1 mg/dL (0.6-1.3); POTASSIUM 4.1 mmol/L (3.5-5.1)
--- NOTE | 2019-05-11 07:00 | NUR ---
DIE MAKER ELECTRONIC CLOSING NOTES PATIENT IN BED, AWAKE, A/OX3. NO ACUTE CHANGES THROUGHOUT SHIFT. ON OXYGEN 2LPM VIA NASAL CANNULA, TOLERATING WELL, NO SOB OR RESPIRATORY DISTRESS NOTED. ON TELE MONITOR SR WITH HR 90S. IV ACCESS ON LEFT AC 22G, FLUSHING AND PATENT, SL. SAFETY MEASURES OBSERVED AND MAINTAINED; HOB ELEVATED 30 DEGREES AT ALL TIMES, SIDE RAILS UP X2, BED LOW AND LOCKED POSITION, CALL LIGHT WITHIN REACH, BED ALARM ON. ALL MD ORDERS ATTENDED, ALL NEEDS ANTICIPATED AND MET. ENDORSED TO AM RN FOR RACHAEL.
[2019-05-11] MEDS: ACETYLCYSTEINE 10% SOLN 400 MG/4 ML VIAL IH SCH ×3 (08:10→23:29)
[2019-05-11] MEDS: PANTOPRAZOLE 40 MG TABLET.DR PO SCH (08:20)
[2019-05-11] MEDS: LORATADINE 10 MG TABLET PO SCH (08:22)
[2019-05-11] MEDS: DOCUSATE SODIUM 100 MG CAPSULE PO SCH (08:22)
[2019-05-11] MEDS: FOLIC ACID 1 MG TABLET PO SCH (08:22)
[2019-05-11] MEDS: clonazePAM 0.5 MG TABLET PO SCH ×2 (08:24→20:41)
[2019-05-11] MEDS: METFORMIN 500 MG TABLET PO SCH ×2 (08:24→18:41)
[2019-05-11] MEDS: GABAPENTIN 300 MG CAPSULE PO SCH ×3 (08:25→17:29)
[2019-05-11] MEDS: MULTIVIT W/MINERALS 1 TAB TABLET PO SCH (08:25)
[2019-05-11] MEDS: CLOPIDOGREL BISULFATE 75 MG TABLET PO SCH (08:26)
[2019-05-11] MEDS: ENOXAPARIN SODIUM 40 MG/0.4 ML DISP.SYRIN SQ SCH (08:28)
[2019-05-11] MEDS: INSULIN GLARGINE, 100 UNIT/ML CARTRIDGE SQ SCH (08:34)
[2019-05-11] MEDS: METOPROLOL TARTRATE 25 MG TABLET PO SCH ×3 (09:00→20:43)
--- NOTE | 2019-05-11 09:08 | NUR ---
WOUND CARE CONSULT: PT PRESENTS WITH LEFT SIDED WEAKNESS AND INCONTINENCE OF URINE, LEFT LOWER LEG DRY ABRASIONS AND SACRAL SCARRING, PRESENT ON ADMISSION. RECOMMENDATIONS MADE FOR SKIN PROTECTION. DISCUSSED WITH NURSING STAFF. LOW AIRLOSS BED TO BE PLACED WHEN AVAILABLE (ISOFLEX). WILL SEE PRN. NEFF IN AGREEMENT WITH PLAN OF CARE. Addendum: 05/11/19 at 0909 by CHAVO CHOU WNDNU Amended: Links added.
[2019-05-11] MEDS: MINERAL OIL/PETROLATUM,WHITE 120 GM JAR TP SCH (10:35)
--- NOTE | 2019-05-11 11:31 | NUR ---
RT Note Attempted NT SX per MD Méndez verbal order. PT became agitated and refused. Speech therapist at bedside. No distress noted. Addendum: 05/11/19 at 1134 by ALBERTINA LOPEZ RT Amended: Links added.
[2019-05-11] MEDS: LACTOBACILLUS RHAMNOSUS GG 1 EACH CAP.SPRINK PO SCH (17:29)
--- NOTE | 2019-05-11 20:00 | NUR ---
PET CARE ASSOCIATE NOTES RECEIVED PTS IN BED AWAKE ALERT X3 ABLE TO MAKE NEEDS KNOWN , SR ON THE MONITOR NO SOB NO DISTRESS NOTED PTS ON NC AT 2LITERS OF O2 SATING 96%, V/S STABLE AFEBRILE , DUE MEDS GIVEN ORDERED ALL NEEDS ATTENDED TOO , HOB ELEVATED AT ALL TIMES FOR ASPIRATION PRECAUTION .TURNED AND REPOSITION Q 2HRS AND PRN .KEPT PTS CLEAN DRY AND COMFORTABLE , WILL CONTINUE TO MONITOR PTS.
[2019-05-11] MEDS: ATORVASTATIN 10 MG TABLET PO SCH (21:57)
[2019-05-11] MEDS: AMITRIPTYLINE HCL 25 MG TABLET PO SCH (21:57)
[2019-05-12] VITALS (9 sets, daily range): BP systolic 95–108; BP diastolic 49–60
[2019-05-12] MEDS: PIPERACILLIN /TAZOBACTAM 3.375 G in IV D5W 50 ML IV SCH ×4 (00:21→17:26)
--- NOTE | 2019-05-12 06:41 | NUR ---
MATRIX WORKER NOTES PTS IN BED AWAKE AND RESPONSIVE , REMAINS ON NC AT 2LITERS OF O2 SATING 98% TELE SR WITH BBB .NO SOB NO DISTRESS NOTED .ALL NEEDS ATTENDED TOO .KEPT PTS CLEAN DRY AND COMFORTABLE , WILL ENDORSE TO RN DAY SHIFT FOR CONTINUITY OF CARE.
[2019-05-12] MEDS: ACETYLCYSTEINE 10% SOLN 400 MG/4 ML VIAL IH SCH ×3 (07:13→23:10)
--- NOTE | 2019-05-12 07:30 | NUR ---
QUEEN'S COUNSEL INITIAL NOTES RECEIVED PT IN BED, A/OX4. ON TELE SR. ON 2L NC. O2 SAT WNL. SOB WITH EXERTION. BREATH SOUNDS DIMINSHED THROUGHOUT LUNG VILLATORO. ACTIVE BOWEL SOUNDS, PT STATED HE DID NOT HAVE A BOWEL MOVEMENT IN 1 WEEK. IV SITE ON LEFT ARM FLUSHED/PATENT. HOB ELEVATED 30 DEG. CALL LIGHT IN REACH. SAFETY MEASURES IN PLACE. WILL CONT TO MONITOR.
[2019-05-12] MEDS: METOPROLOL TARTRATE 25 MG TABLET PO SCH ×2 (09:00→20:39)
[2019-05-12] MEDS: INSULIN GLARGINE, 100 UNIT/ML CARTRIDGE SQ SCH (09:43)
[2019-05-12] MEDS: PANTOPRAZOLE 40 MG/PACK PACK NG SCH (09:45)
[2019-05-12] MEDS: CLOPIDOGREL BISULFATE 75 MG TABLET PO SCH (09:45)
[2019-05-12] MEDS: ENOXAPARIN SODIUM 40 MG/0.4 ML DISP.SYRIN SQ SCH (09:45)
[2019-05-12] MEDS: METFORMIN 500 MG TABLET PO SCH ×2 (09:46→17:26)
[2019-05-12] MEDS: DOCUSATE SODIUM 100 MG CAPSULE PO SCH (09:46)
[2019-05-12] MEDS: LORATADINE 10 MG TABLET PO SCH (09:46)
[2019-05-12] MEDS: FOLIC ACID 1 MG TABLET PO SCH (09:47)
[2019-05-12] MEDS: GABAPENTIN 300 MG CAPSULE PO SCH ×3 (09:47→16:09)
[2019-05-12] MEDS: LACTOBACILLUS RHAMNOSUS GG 1 EACH CAP.SPRINK PO SCH ×2 (09:47→16:09)
[2019-05-12] MEDS: MULTIVIT W/MINERALS 1 TAB TABLET PO SCH (09:47)
[2019-05-12] MEDS: MINERAL OIL/PETROLATUM,WHITE 120 GM JAR TP SCH (10:00)
[2019-05-12] MEDS: clonazePAM 0.5 MG TABLET PO SCH ×2 (10:07→20:39)
[2019-05-12] MEDS: VANCOMYCIN 0.75 GM in IV D5W 250 ML IV SCH ×2 (11:24→23:16)
[2019-05-12 13:39] LABS: CALCIUM, SERUM 8.4 mg/dL (8.5-10.1); CREATININE 1.1 mg/dL (0.6-1.3); POTASSIUM 3.9 mmol/L (3.5-5.1)
--- NOTE | 2019-05-12 18:42 | NUR ---
DECKHAND FISHING VESSEL END OF SHIFT NOTES PT STABLE IN BED, WATCHING TV. NO C/O RESP DISTRESS/DISCOMFORT. PT TOLERATED ALL TX'S. SAFETY MEASURES IN PLACE. WILL ENDORSE TO PM NURSE FOR RACHAEL.
--- NOTE | 2019-05-12 20:10 | NUR ---
CLOCK AND WATCH HANDS MOUNTER NOTES RECEIVED PT ON BED. A/O X 3. ON TELE MONITOR SR WITH BBB. ON NASAL CANNULA 2LPM NO RESPIRATORY DISTRESS NOTED. IV ACCESS ON LAC G22 TKO, PATENT AND INTACT. WITH CONDOM CATH DRAINING YELLOW URINE. HEAD OF BED ELEVATED. SIDE RAILS UP. CALL LIGHT WITHIN REACH, BED ALARM ON.WILL CONTINUE TO MONITOR PT CLOSELY.
[2019-05-12] MEDS: AMITRIPTYLINE HCL 25 MG TABLET PO SCH (20:39)
[2019-05-12] MEDS: ATORVASTATIN 10 MG TABLET PO SCH (20:40)
[2019-05-13] VITALS: BP 107/52
[2019-05-13] MEDS: PIPERACILLIN /TAZOBACTAM 3.375 G in IV D5W 50 ML IV SCH ×5 (00:37→23:09)
[2019-05-13 04:00] VITALS: BP 112/57
--- NOTE | 2019-05-13 07:12 | NUR ---
POLICE OR PATROL PARK OFFICER NOTES NO ACUTE CHANGES NOTED DURING THE SHIFT. NO RESPIRATORY DISTRESS NOTED. PROVIDED COMFORT AND SAFETY. WILL ENDORSE TO THE AM NURSE FOR CONTINUITY OF CARE.
[2019-05-13] MEDS: ACETYLCYSTEINE 10% SOLN 400 MG/4 ML VIAL IH SCH ×3 (07:59→22:35)
[2019-05-13 08:00] VITALS: BP 111/81
--- NOTE | 2019-05-13 08:00 | NUR ---
TELE1/RN AM SHIFT INITIAL NOTES RECEIVED PT AWAKE IN BED, PT A/O X 3, PT DENIES ANY SYMPTOMS, NO ACUTE RESPIRATORY DISTRESS NOTED. ON 2L O2 VIA N/C SATURATING @ 96%, RESPIRATIONS EVEN & UNLABORED, LUNG SOUNDS DIMINISHED. ON TELE MONITORING WITH SINUS RHYTHM, HR 89. IV SITE ON TKO, PATENT WITH NO S/S OF INFECTION. CONDOM CATHETER IN PLACED NOTED WITH CLEAR YELLOW URINE OUTPUT. PT ON ASPIRATION PRECAUTION, HE IS COMFORTABLE, SCHEDULED AM MEDS TO BE GIVEN. CL WITHIN REACHED AND SAFETY MAINTAINED. ON GOING MONITORING.
[2019-05-13] MEDS: MULTIVIT W/MINERALS 1 TAB TABLET PO SCH (08:40)
[2019-05-13] MEDS: GABAPENTIN 300 MG CAPSULE PO SCH ×3 (08:41→17:13)
[2019-05-13] MEDS: CLOPIDOGREL BISULFATE 75 MG TABLET PO SCH (08:41)
[2019-05-13] MEDS: LORATADINE 10 MG TABLET PO SCH (08:41)
[2019-05-13] MEDS: METFORMIN 500 MG TABLET PO SCH ×2 (08:41→17:32)
[2019-05-13] MEDS: clonazePAM 0.5 MG TABLET PO SCH ×2 (08:41→20:49)
[2019-05-13] MEDS: FOLIC ACID 1 MG TABLET PO SCH (08:41)
[2019-05-13] MEDS: LACTOBACILLUS RHAMNOSUS GG 1 EACH CAP.SPRINK PO SCH ×2 (08:41→17:12)
[2019-05-13] MEDS: DOCUSATE SODIUM 100 MG CAPSULE PO SCH (08:41)
[2019-05-13] MEDS: ENOXAPARIN SODIUM 40 MG/0.4 ML DISP.SYRIN SQ SCH (08:42)
[2019-05-13] MEDS: METOPROLOL TARTRATE 25 MG TABLET PO SCH ×2 (08:43→20:49)
[2019-05-13] MEDS: INSULIN GLARGINE, 100 UNIT/ML CARTRIDGE SQ SCH (08:43)
[2019-05-13] MEDS: PANTOPRAZOLE 40 MG/PACK PACK NG SCH (08:44)
[2019-05-13] MEDS: MINERAL OIL/PETROLATUM,WHITE 120 GM JAR TP SCH (08:44)
[2019-05-13 10:53] LABS: BASOPHILS % (AUTO) 0.2 % (0.0-2.0); EOSINOPHILS % (AUTO) 3.3 % (0.0-6.0); HEMATOCRIT 32 % (39-51); HEMOGLOBIN 10.5 g/dL (13.5-17.5); LYMPHOCYTES # (AUTO) 1.7 /CMM (0.8-4.8); LYMPHOCYTES % (AUTO) 19.5 % (20.0-44.0); MEAN CORPUSCULAR HGB CONC 33 g/dl (31.0-36.0); MEAN CORPUSCULAR VOLUME 90 fL (80-96); MONOCYTES # (AUTO) 0.5 /CMM (0.1-1.30); MONOCYTES % (AUTO) 5.7 % (2.0-12.0); NEUTROPHILS # (AUTO) 6.3 /CMM (1.8-8.9); NEUTROPHILS % (AUTO) 71.3 % (43.0-81.0); PLATELET COUNT (AUTO) 237 /CMM (150-450); RED BLOOD CELL COUNT(AUTO) 3.56 MIL/uL (4.5-6.0); WHITE BLOOD COUNT (AUTO) 8.9 K/uL (4.3-11.0)
[2019-05-13 11:06] LABS: CALCIUM, SERUM 8.6 mg/dL (8.5-10.1); MAGNESIUM 1.9 mg/dL (1.8-2.4); PHOSPHORUS 2.8 mg/dL (2.5-4.9); POTASSIUM 4.6 mmol/L (3.5-5.1)
[2019-05-13] MEDS: VANCOMYCIN 0.75 GM in IV D5W 250 ML IV SCH (11:21)
--- NOTE | 2019-05-13 11:21 | NUR ---
TELE1/RN REECE - HELD SCHEDULED VANCOMYCIN IV @ 1200 HELD D/T LEVEL 24.
[2019-05-13 12:00] VITALS: BP 109/62
[2019-05-13] MEDS ORDERED: DEXTROSE 50%-WATER 50 ML DISP.SYRIN IV PRN (14:00)
[2019-05-13 16:00] VITALS: BP 94/54
[2019-05-13] MEDS: BLOOD SUGAR DIAGNOSTIC 1 EACH STRIP IN SCH ×2 (16:47→21:01)
[2019-05-13] MEDS: INSULIN REGULAR, HUMAN 100 UNIT/ML 3 ML VIAL SQ PRN (17:15)
--- NOTE | 2019-05-13 19:14 | NUR ---
TELE1/RN AM SHIFT END NOTES ALL NEEDS MET. NO ACUTE CHANGE OF CONDITION NOTED DURING THE SHIFT. PT ENDORSED TO PM NURSE TO CONTINUE CARE. CL WITHIN REACHED, SAFETY MAINTAINED AND ASPIRATION PRECAUTION OBSERVED.
--- NOTE | 2019-05-13 19:34 | NUR ---
BARREL REAMER NOTES RECEIVED PT ON BED. A/O X 2. ON TELE MONITOR SR 87 WITH BBB. ON NASAL CANNULA 2LPM NO RESPIRATORY DISTRESS NOTED. IV ACCESS ON LAC G22 TKO, PATENT AND INTACT. HEAD OF BED ELEVATED. SIDE RAILS UP.BED IN LOW AND LOCKED POSITION. CALL LIGHT WITHIN REACH, BED ALARM ON.WILL CONTINUE TO MONITOR PT CLOSELY.
[2019-05-13 20:00] VITALS: BP 118/85
--- NOTE | 2019-05-13 20:30 | NUR ---
ORTHODONTIST SMALL BUSINESS OWNER NOTES PER PT HE WANTS TO TAKE HIS PILL TOGETHER AND ACCUCHECK 2029. PER PT HE WANTS TO SLEEP.
[2019-05-13] MEDS: ATORVASTATIN 10 MG TABLET PO SCH (21:02)
[2019-05-13] MEDS: AMITRIPTYLINE HCL 25 MG TABLET PO SCH (21:02)
[2019-05-13] MEDS ORDERED: ACETAMINOPHEN ES 500 MG TABLET ONE (22:48)
[2019-05-14] VITALS: BP 109/46
[2019-05-14 04:00] VITALS: BP 121/44
[2019-05-14] MEDS: PIPERACILLIN /TAZOBACTAM 3.375 G in IV D5W 50 ML IV SCH ×2 (05:08→12:44)
[2019-05-14 06:33] LABS: BASOPHILS % (AUTO) 0.3 % (0.0-2.0); EOSINOPHILS % (AUTO) 4.3 % (0.0-6.0); HEMATOCRIT 31 % (39-51); HEMOGLOBIN 10.3 g/dL (13.5-17.5); LYMPHOCYTES # (AUTO) 1.9 /CMM (0.8-4.8); LYMPHOCYTES % (AUTO) 20.7 % (20.0-44.0); MEAN CORPUSCULAR HGB CONC 33 g/dl (31.0-36.0); MEAN CORPUSCULAR VOLUME 89 fL (80-96); MONOCYTES # (AUTO) 0.6 /CMM (0.1-1.30); MONOCYTES % (AUTO) 6.2 % (2.0-12.0); NEUTROPHILS # (AUTO) 6.3 /CMM (1.8-8.9); NEUTROPHILS % (AUTO) 68.5 % (43.0-81.0); PLATELET COUNT (AUTO) 212 /CMM (150-450); RED BLOOD CELL COUNT(AUTO) 3.51 MIL/uL (4.5-6.0); WHITE BLOOD COUNT (AUTO) 9.3 K/uL (4.3-11.0)
[2019-05-14 06:42] LABS: CALCIUM, SERUM 8.5 mg/dL (8.5-10.1); CREATININE 1.1 mg/dL (0.6-1.3); MAGNESIUM 1.9 mg/dL (1.8-2.4); PHOSPHORUS 2.9 mg/dL (2.5-4.9); POTASSIUM 4.4 mmol/L (3.5-5.1)
--- NOTE | 2019-05-14 07:05 | NUR ---
RN OPENING NOTES PT IS ASLEEP IN BED WITH 3L O2 VIA NC ON. PT IS IN SEMI ZIMMERMAN POSITION IN BED. PT HAS L FOREARM 22 G SL. NO SIGNS OF RESPIRATORY OR PAIN NOTED AT THIS TIME. BED IS LOCKED AND IN LOWEST POSITION WITH CALL LIGHT IN REACH. WILL CONTINUE TO MONITOR.
--- NOTE | 2019-05-14 07:15 | NUR ---
BUYER PLANNER NOTES NO ACUTE CHANGES NOTED DURING THE SHIFT. NO RESPIRATORY DISTRESS NOTED. PROVIDED COMFORT AND SAFETY. WILL ENDORSE TO THE AM NURSE FOR CONTINUITY OF CARE.
[2019-05-14] MEDS: BLOOD SUGAR DIAGNOSTIC 1 EACH STRIP IN SCH ×2 (07:40→12:34)
[2019-05-14] MEDS: ACETYLCYSTEINE 10% SOLN 400 MG/4 ML VIAL IH SCH (07:46)
[2019-05-14 08:00] VITALS: BP 112/78
[2019-05-14] MEDS: GABAPENTIN 300 MG CAPSULE PO SCH ×2 (08:19→12:44)
[2019-05-14] MEDS: LORATADINE 10 MG TABLET PO SCH (08:19)
[2019-05-14] MEDS: LACTOBACILLUS RHAMNOSUS GG 1 EACH CAP.SPRINK PO SCH (08:19)
[2019-05-14] MEDS: clonazePAM 0.5 MG TABLET PO SCH (08:19)
[2019-05-14] MEDS: METFORMIN 500 MG TABLET PO SCH (08:19)
[2019-05-14] MEDS: CLOPIDOGREL BISULFATE 75 MG TABLET PO SCH (08:19)
[2019-05-14] MEDS: MULTIVIT W/MINERALS 1 TAB TABLET PO SCH (08:19)
[2019-05-14] MEDS: FOLIC ACID 1 MG TABLET PO SCH (08:19)
[2019-05-14] MEDS: DOCUSATE SODIUM 100 MG CAPSULE PO SCH (08:19)
[2019-05-14] MEDS: METOPROLOL TARTRATE 25 MG TABLET PO SCH (08:20)
[2019-05-14] MEDS: INSULIN GLARGINE, 100 UNIT/ML CARTRIDGE SQ SCH (08:22)
[2019-05-14] MEDS: ENOXAPARIN SODIUM 40 MG/0.4 ML DISP.SYRIN SQ SCH (08:22)
[2019-05-14] MEDS: PANTOPRAZOLE 40 MG/PACK PACK NG SCH (08:57)
[2019-05-14] MEDS: MINERAL OIL/PETROLATUM,WHITE 120 GM JAR TP SCH (08:57)
[2019-05-14] MEDS ORDERED: VANCOMYCIN 0.75 GM in IV D5W 250 ML IV SCH (09:00)
[2019-05-14] MEDS ORDERED: RXVAN IV (09:45)
[2019-05-14] MEDS ORDERED: PIPE3.379 IV (09:45)
[2019-05-14] MEDS ORDERED: VANC750F2 IV (09:45)
[2019-05-14 12:00] VITALS: BP 107/52
[2019-05-14] MEDS: INSULIN REGULAR, HUMAN 100 UNIT/ML 3 ML VIAL SQ PRN (12:45)
--- NOTE | 2019-05-14 14:39 | NUR ---
RN D/C NOTES PT STATED NOT TO CALL HE HAD ALREADY CALLED HER TO LET HER KNOW ABOUT TRANSFER BACK TO [facility]. STATED HE LEFT A MESSAGE. REPORT CALLED TO TONYA CHARGE NURSE AT [facility]. BELONGINGS LIST SIGNED BY LILLIAN PT NOT ABLE TO SIGN AND STATED HE WANTED US TO SIGN FOR HIM. IV REMOVED BY [facility]. EXITCARE PACKET GIVEN TO EMT'S WITH A VERBAL REPORT.
[2019-05-15] MEDS ORDERED: PANTOPRAZOLE 40 MG TABLET.DR PO SCH (07:30)
== END 2019-05-14 14:52 | DRG 193 ==
LOC: ER 16:58 → TELE-TD 19:41 → TELE1 05-10 20:52 → MEDSG1 05-11 09:30 → TELE1 05-11 10:47 → MEDSG1 05-14 12:37
PROVIDERS: ADMIT Internal Medicine Nephrology; ATTEND Internal Medicine
DX: J15.9 Unspecified bacterial pneumonia (principal); G92 Toxic encephalopathy; J44.0 Chronic obstructive pulmonary disease with (acute) lower respiratory infection; I24.8 Other forms of acute ischemic heart disease; Z86.73 Personal history of transient ischemic attack (TIA), and cerebral infarction without residual deficits; I25.10 Atherosclerotic heart disease of native coronary artery without angina pectoris; Z79.84 Long term (current) use of oral hypoglycemic drugs; Z87.891 Personal history of nicotine dependence; Z95.1 Presence of aortocoronary bypass graft; I11.0 Hypertensive heart disease with heart failure; F32.9 Major depressive disorder, single episode, unspecified; D64.9 Anemia, unspecified; R79.89 Other specified abnormal findings of blood chemistry; F09 Unspecified mental disorder due to known physiological condition; E11.9 Type 2 diabetes mellitus without complications; E78.5 Hyperlipidemia, unspecified; F03.90 Unspecified dementia, unspecified severity, without behavioral disturbance, psychotic disturbance, mood disturbance, and anxiety; I50.9 Heart failure, unspecified
CPT/HCPCS: 31720; 36415; 71045-TC; 80048-TC; 80061-TC; 80076-TC; 80202-TC; 81000-TC; 82962-TC; 83605-TC; 83735-TC; 84100-TC; 84484-TC; 85025-TC; 85730-TC; 87040-TC; 87081-TC; 87086-TC; 92526; 92611-TC; 93307-TC; 94799-TC; A4349; G0378; J1650; J1815; J2543; J3370; J7030; J7050; J7060

== ENCOUNTER 2020-03-23 19:44 | Inpatient (IN) | payer MEDICARE, OTHER ==
[~2020-03-23] VITALS: Ht 160 cm; Wt 45.4 kg
[~2020-03-23 19:44] MED LIST changes: +ACET100V4 MC; -ASCO500T9 PO; -Amox/Clavulanate PO; -CALC-261 PO; -CLON0.5T12 PO; +CLON0.5T4 PO; +ENOX40DI SQ; -ESCI10TA PO; -FERR134T2 PO; -MAG30ORA PO; -OMEG1CAP PO; +PIPE3.379 IV; -PRED20TA PO; +RXVAN IV; -SENN-168 PO; +VANC750F2 IV; -ZOLP10TA6 PO
--- NOTE | 2020-03-23 20:30 | NUR ---
ERNESTO FROM [facility] FOR HIGH BUN/ CR. PT ALTERED, RR EVEN & UNLABORED. NO ACUTE DISTRESS NOTED AT THIS TIME. PT SEEN & EVAL'D BY DR. HAMPTON. PLACED ON ALTERATIONS SUPERVISOR & WILL CONT TO MONITOR.
[2020-03-23 20:51] LABS: BASOPHILS % (AUTO) 0.2 % (0.0-2.0); EOSINOPHILS % (AUTO) 0.6 % (0.0-6.0); HEMATOCRIT 27 % (39-51); HEMOGLOBIN 8.5 g/dL (13.5-17.5); LYMPHOCYTES # (AUTO) 1.8 /CMM (0.8-4.8); LYMPHOCYTES % (AUTO) 14.2 % (20.0-44.0); MEAN CORPUSCULAR HGB CONC 32 g/dl (31.0-36.0); MEAN CORPUSCULAR VOLUME 92 fL (80-96); MONOCYTES % (AUTO) 8.5 % (2.0-12.0); NEUTROPHILS # (AUTO) 9.4 /CMM (1.8-8.9); NEUTROPHILS % (AUTO) 76.5 % (43.0-81.0); PLATELET COUNT (AUTO) 304 /CMM (150-450); RED BLOOD CELL COUNT(AUTO) 2.89 MIL/uL (4.5-6.0); WHITE BLOOD COUNT (AUTO) 12.3 K/uL (4.3-11.0)
[2020-03-23 21:01] LABS: CALCIUM, SERUM 8.8 mg/dL (8.5-10.1); CARBON DIOXIDE 27 mmol/L (21-32); CHLORIDE 102 mmol/L (98-107); CREATININE 2.8 mg/dL (0.6-1.3); GLUCOSE 138 mg/dL (74-106); POTASSIUM 4.9 mmol/L (3.5-5.1); SODIUM SERUM 140 mmol/L (136-145); UREA NITROGEN, BLOOD 48 mg/dL (7-18)
[2020-03-23] MEDS ORDERED: Z GUARD REMEDY 2 OZ OINT TP PRN (22:00)
[2020-03-23] MEDS ORDERED: DEXTROSE 50%-WATER 50 ML DISP.SYRIN IV PRN (22:00)
[2020-03-23] MEDS ORDERED: HYDROCODONE/APAP 5/325MG TABLET PO PRN (22:00)
[2020-03-23] MEDS ORDERED: ZOLPIDEM TARTRATE 5 MG TABLET PO PRN (22:00)
[2020-03-23] MEDS ORDERED: ACETAMINOPHEN 325 MG TABLET PO PRN (22:00)
[2020-03-23] MEDS ORDERED: ONDANSETRON HCL/PF 4 MG/2 ML VIAL IVP PRN (22:00)
--- NOTE | 2020-03-23 22:17 | NUR ---
REPORT GIVEN TO [facility] FOR RACHAEL.
[2020-03-23 22:54] LABS: IRON, SERUM 18 ug/dl (50-175); TOTAL IRON BINDING CAPACITY 180 ug/dl (250-450)
[2020-03-23 23:15] VITALS: BP 114/55
--- NOTE | 2020-03-23 23:15 | NUR ---
HOT DOG VENDOR ADMITTING NOTES RECEIVED PT FROM ER VIA RAYMUNDO. PT ABLE TO OPEN EYES. RESPIRATIONS EVEN AND UNLABORED WITH NO S/S OF ACUTE DISTRESS OR SOB NOTED. NO S/S OF PAIN AT THIS TIME. PT ON TELE MONITORING SHOWING ST 100-110. PT NOTED WITH RAC #20G PATENT AND INTACT AND SL. SAFETY MEASURES IN PLACE WITH BED IN LOWEST LOCKED POSITION WITH SIDE RAILS UP X2. CALL LIGHT WITHIN REACH. WILL CONTINUE TO MONITOR.
[2020-03-23] MEDS: BLOOD SUGAR DIAGNOSTIC 1 EACH STRIP IN SCH (23:55)
[2020-03-24] MEDS ORDERED: clonazePAM 0.5 MG TABLET PO PRN
[2020-03-24] MEDS ORDERED: BISACODYL SUPP (10 MG) 10 MG/SUPP.RECT SUPP.RECT RC PRN
[2020-03-24] MEDS ORDERED: MAGNESIUM HYDROXIDE 30 ML UDC PO PRN
[2020-03-24] MEDS ORDERED: IPRATROPIUM NEB FS 0.5 MG/2.5 ML AMPUL.NEB IH PRN
[2020-03-24] MEDS ORDERED: NA PHOS,M-B/NA PHOS,DI-BA 1 EA ENEMA RC PRN
[2020-03-24] MEDS: IV NS 0.9% 1,000 ML IV PRN (00:04)
--- NOTE | 2020-03-24 00:05 | NUR ---
ERROR DOCUMENTATION ON CRITICAL LAB REPORT, WRONG PATIENT.
--- NOTE | 2020-03-24 03:20 | NUR ---
PARASITOLOGIST NOTES RECEIVED CALL FROM LAB WITH CRITICAL HIGH VALUE FOR LACTIC ACID AT 3.4, MADE AWARE, NO NEW ORDERS. WILL CONTINUE TO MONITOR.
[2020-03-24 04:00] VITALS: BP 111/55
[2020-03-24 04:32] LABS: BASOPHILS % (AUTO) 0.3 % (0.0-2.0); EOSINOPHILS % (AUTO) 0.3 % (0.0-6.0); LYMPHOCYTES # (AUTO) 2.1 /CMM (0.8-4.8); LYMPHOCYTES % (AUTO) 16.1 % (20.0-44.0); MEAN CORPUSCULAR HGB CONC 32 g/dl (31.0-36.0); MEAN CORPUSCULAR VOLUME 92 fL (80-96); MONOCYTES # (AUTO) 1.2 /CMM (0.1-1.30); MONOCYTES % (AUTO) 9.2 % (2.0-12.0); NEUTROPHILS # (AUTO) 9.9 /CMM (1.8-8.9); NEUTROPHILS % (AUTO) 74.1 % (43.0-81.0); PLATELET COUNT (AUTO) 321 /CMM (150-450); RED BLOOD CELL COUNT(AUTO) 2.39 MIL/uL (4.5-6.0); WHITE BLOOD COUNT (AUTO) 13.3 K/uL (4.3-11.0)
[2020-03-24 04:38] LABS: HEMATOCRIT 22 % (39-51); HEMOGLOBIN 6.9 g/dL (13.5-17.5)
[2020-03-24 04:44] LABS: CALCIUM, SERUM 8.9 mg/dL (8.5-10.1); CARBON DIOXIDE 29 mmol/L (21-32); CHLORIDE 100 mmol/L (98-107); CREATININE 2.7 mg/dL (0.6-1.3); GLUCOSE 115 mg/dL (74-106); MAGNESIUM 1.8 mg/dL (1.8-2.4); PHOSPHORUS 3.1 mg/dL (2.5-4.9); SODIUM SERUM 139 mmol/L (136-145); UREA NITROGEN, BLOOD 47 mg/dL (7-18)
[2020-03-24 04:47] LABS: BILIRUBIN,DIRECT 0.1 mg/dL (0.0-0.2); BILIRUBIN,TOTAL 0.2 mg/dL (0.2-1.0)
[2020-03-24 04:48] LABS: CHOLESTEROL 115 mg/dL (<200); HDL CHOLESTEROL 40 mg/dL (40-60); LDL 50 mg/dL (0-99); TRIGLYCERIDES 156 mg/dL (30-150)
--- NOTE | 2020-03-24 05:21 | NUR ---
MAINTENANCE MECHANIC ELEVATORS NOTES LAB CALLED FOR CRICTIAL LOW VALUE FOR HGB AT 6.9, MADE AWARE, NO NEW ORDERS BUT TO ENDORSE TO DAY SHIFT. LAB ALSO CALLED FOR CRITICAL HIGH VALUE FOR LACTIC ACID AT 3.2 DOWN FROM 3.4, MADE AWARE, NO NEW ORDERS. WILL CONTINUE TO MONITOR.
[2020-03-24] MEDS: BLOOD SUGAR DIAGNOSTIC 1 EACH STRIP IN SCH ×4 (06:42→22:16)
--- NOTE | 2020-03-24 07:18 | NUR ---
CYCLE CONSULTANT NOTES PT IN BED RESTING. PT ABLE TO OPEN EYES AND FOLLOW SIMPLE DIRECTIONS, AND ANSWER SIMPLE QUESTIONS. RESPIRATIONS EVEN AND UNLABORED WITH NO S/S OF ACUTE DISTRESS OR SOB NOTED THROUGHOUT SHIFT. NO S/S OF PAIN AT THIS TIME. PT ON TELE MONITORING SHOWING ST 100-110. PT NOTED WITH RAC #20G PATENT AND INTACT INFUSING NS @75CC/HR. PT KEPT CLEAN, DRY, AND COMFORTABLE. SAFETY MEASURES IN PLACE WITH BED IN LOWEST LOCKED POSITION WITH SIDE RAILS UP X2. CALL LIGHT WITHIN REACH. WILL ENDORSE TO ONCOMING NURSE FOR RACHAEL.
[2020-03-24] MEDS: PANTOPRAZOLE 40 MG TABLET.DR PO SCH (07:30)
--- NOTE | 2020-03-24 07:30 | NUR ---
BULLET SLUGS INSPECTOR OPEN NOTES PATIENT IS A/O X 1. PATIENT IS SLEEPING WHEN GIVEN CHANGE OF SHIFT REPORT WITH NO SIGNS OF DISTRESS ON 3L OF NASAL CANNULA. SATURATION OXYGENATION AT 100%. PATIENT IS NPO AT THIS TIME WAITING FOR SWALLOWING TEST EVAL. IV R AC #20G WITH 75 MLS./HR NS. BED IS IN LOW POSITION AND LOCKED WITH SIDE RAILS UP X 2 FOR SAFETY. CALL LIGHT WITHIN REACH. WILL CONTINUE TO MONITOR.
--- NOTE | 2020-03-24 07:40 | NUR ---
RN NOTES CALLED DR. ZUNIGA ABOUT THE CRITICAL VALUE OF HEMOGLOBIN BEING 6.9. SHE ORDERED RE DRAW CBC STAT. ORDERED REPEATED AND CARRIED OUT.
[2020-03-24 08:00] VITALS: BP 120/61
[2020-03-24 08:43] LABS: BASOPHILS % (AUTO) 0.2 % (0.0-2.0); EOSINOPHILS % (AUTO) 0.4 % (0.0-6.0); HEMATOCRIT 25 % (39-51); HEMOGLOBIN 8.1 g/dL (13.5-17.5); LYMPHOCYTES # (AUTO) 1.8 /CMM (0.8-4.8); LYMPHOCYTES % (AUTO) 18.5 % (20.0-44.0); MEAN CORPUSCULAR HGB CONC 33 g/dl (31.0-36.0); MEAN CORPUSCULAR VOLUME 91 fL (80-96); MONOCYTES # (AUTO) 0.8 /CMM (0.1-1.30); MONOCYTES % (AUTO) 8.3 % (2.0-12.0); NEUTROPHILS % (AUTO) 72.6 % (43.0-81.0); PLATELET COUNT (AUTO) 291 /CMM (150-450); RED BLOOD CELL COUNT(AUTO) 2.72 MIL/uL (4.5-6.0); WHITE BLOOD COUNT (AUTO) 9.7 K/uL (4.3-11.0)
[2020-03-24] MEDS: FOLIC ACID 1 MG TABLET PO SCH (09:00)
[2020-03-24] MEDS: METOPROLOL TARTRATE 25 MG TABLET PO SCH ×2 (09:00→21:00)
[2020-03-24] MEDS ORDERED: INSULIN GLARGINE,BASAGLAR 100 UNIT/ML INSULN.PEN SQ SCH (09:00)
[2020-03-24] MEDS: ENOXAPARIN SODIUM 30 MG/0.3 ML DISP.SYRIN SQ SCH (09:00)
[2020-03-24] MEDS: GABAPENTIN 300 MG CAPSULE PO SCH ×2 (09:00→17:00)
[2020-03-24] MEDS: MULTIVIT W/MINERALS 1 TAB TABLET PO SCH (09:00)
[2020-03-24] MEDS: CLOPIDOGREL BISULFATE 75 MG TABLET PO SCH (09:00)
[2020-03-24] MEDS: DOCUSATE SODIUM 100 MG CAPSULE PO SCH (09:00)
[2020-03-24] MEDS: LORATADINE 10 MG TABLET PO SCH (09:00)
--- NOTE | 2020-03-24 09:30 | NUR ---
RN NOTES SWALLOWING EVALUATION WAS PERFORMED BY SPEECH THERAPIST. PATIENT UNABLE TO SWALLOW. KEEP PATIENT NPO INCLUDING MEDS AT THIS TIME. WILL CONTINUE TO MONITOR.
--- NOTE | 2020-03-24 10:00 | NUR ---
RN NOTES PATIENT HEMOGLOBIN IS NOW 8.1.
[2020-03-24] MEDS ORDERED: IV D5/ 0.9% NACL 1,000 ML IV ONE (12:30)
[2020-03-24] MEDS ORDERED: NITR0.4T48 SL (14:08)
[2020-03-24] MEDS ORDERED: IPRA4AER IH ×2 (14:08)
[2020-03-24] MEDS ORDERED: CHOL100040 PO (14:08)
[2020-03-24] MEDS ORDERED: QUERCETIN PO (14:08)
[2020-03-24] MEDS ORDERED: ASCO500T10 PO (14:08)
[2020-03-24] MEDS ORDERED: MEGE400O4 PO (14:08)
[2020-03-24] MEDS ORDERED: TRAZ-182 PO (14:08)
[2020-03-24] MEDS ORDERED: OMEG-88 PO (14:08)
--- NOTE | 2020-03-24 14:30 | NUR ---
RN NOTES PATIENT ACCUCHECK INCREASED TO 70. WILL CONTINUE TO MONITOR.
[2020-03-24 16:00] VITALS: BP 121/58
--- NOTE | 2020-03-24 17:01 | NUR ---
RN NOTE DID NOT ADMINSTER PO MEDS, PATIENT IS NPO UNTIL FURTHER SWALLOWING EVALUATION.
--- NOTE | 2020-03-24 17:30 | NUR ---
RN NOTES ACCUCHECK BLOOD SUGAR INCREASED TO 75.
[2020-03-24 18:18] LABS: URINE TOTAL PROTEIN 70.4 mg/dL (0-11.9)
[2020-03-24 18:25] LABS: APPEARANCE,URINE SL CLOUDY (CLEAR); BILIRUBIN,URINE NEGATIVE (NEGATIVE); BLOOD, URINE LARGE Ery/uL (NEGATIVE); COLOR,URINE YELLOW (YELLOW); KETONES,URINE NEGATIVE (NEGATIVE); LEUKOCYTE ESTERASE ,URINE NEGATIVE (NEGATIVE); NITRITE, URINE NEGATIVE (NEGATIVE); PROTEIN,URINE 30 mg/dl (NEGATIVE); UGLUCOSE NEGATIVE (NEGATIVE); UROBILINOGEN,URINE 0.2 EU/dL (0.2)
[2020-03-24 18:31] LABS: BACTERIA,URINE 2+ /HPF (None Seen); RBC,URINE TOO NUMEROUS TO COUN /HPF (0-2); SQUAMOUS EPITHELIAL CELL,UR Few /HPF (None Seen); WBC,URINE 0-2 /HPF (0-3)
[2020-03-24 19:04] LABS: EOSINOPHIL,URINE None Seen
--- NOTE | 2020-03-24 19:30 | NUR ---
RN CLOSING NOTES PATIENT IS A/O X 1. PATIENT IS CALM AND COOPERATIVE WITH NO SIGNS OF DISTRESS ON 3L NASAL CANNULA. IV R AC #20G RUNNING D5 NS AT 75 MLS/HR. PATIENT REMAINED STABLE THROUGH OUT SHIFT. PATIENT KEPT CLEAN AND DRY. ALL NEEDS, CARE, TREATMENT ANTICIPATED PER ORDER.PATIENT REMAINS NPO INCLUDING WITH MEDICATIONS UNTIL FURTHER SWALLOW EVAL. BED IS IN LOW POSITION AND LOCKED WITH SIDE RAILS UP X 2 FOR SAFETY. CALL LIGHT WITHIN REACH. WILL ENDORSE TO THE NEXT NURSE SHIFT.
--- NOTE | 2020-03-24 19:46 | NUR ---
ARSON AND BOMB INVESTIGATOR OPENING NOTES PATIENT RECEIVED RESTING IN BED COMFORTABLY; A/OX1; PATIENT ON 3LPM VIA NC; TOLERATING WELL, NO S/S OF SOB OR DISTRESS NOTED; BREATHING EVEN AND UNLABORED; PATIENT IS NPO, PER AM SHIFT, INCLUDING MEDS PER SWALLOW EVAL UNTIL FURTHER NOTICE; R AC #20 INTACT INFUSING D5NS @ 75ML/HR; TOLERATING IVF WELL; SAFETY PRECAUTIONS IMPLEMENTED; BED LOCKED IN LOW POSITION; SIDE RAILSX2; WILL CONT TO MONITOR
[2020-03-24 20:00] VITALS: BP 104/55
[2020-03-24] MEDS: AMITRIPTYLINE HCL 25 MG TABLET PO SCH (21:09)
[2020-03-24] MEDS: ATORVASTATIN 10 MG TABLET PO SCH (21:09)
[2020-03-24] MEDS ORDERED: AMITRIPTYLINE HCL 50 MG TABLET PO SCH (22:00)
[2020-03-25] VITALS: BP 117/64
[2020-03-25] MEDS: IV NS 0.9% 1,000 ML IV PRN (03:43)
[2020-03-25 04:00] VITALS: BP 105/54
[2020-03-25] MEDS: BLOOD SUGAR DIAGNOSTIC 1 EACH STRIP IN SCH ×4 (06:32→21:03)
--- NOTE | 2020-03-25 06:44 | NUR ---
MANAGER OF REVENUE CLOSING NOTES PATIENT RESTING IN BED COMFORTABLY; A/OX1; BREATHING EVEN AND UNLABORED; PATIENT ON 3LPM VIA NC; TELE MONITOR READS S. TACHY 102BPM; NPO STATUS MAINTAINED; R AC #20 INTACT AND PATENT, INFUSING NS @ 75ML/HR; TOLERATING INFUSION WELL; ALL NEEDS RENDERED; SAFETY PRECAUTIONS IMPLEMENTED; BED LOCKED IN LOW POSITION; SIDE RAILSX2; CALL LIGHT WITHIN REACH; WILL ENDORSE RACHAEL TO ONCOMING SHIFT
[2020-03-25] MEDS: PANTOPRAZOLE 40 MG TABLET.DR PO SCH (07:30)
--- NOTE | 2020-03-25 07:30 | NUR ---
SHRIMP PICKER OPEN NOTES PATIENT IS A/O X 1. PATIENT IS AWAKE AND ALERT WITH NO SIGNS OF DISTRESS ON 3L OF NASAL CANNULA. PATIENT IS NPO AT THIS TIME WAITING FOR SWALLOWING TEST EVAL. IV R AC #20G WITH 75 MLS./HR NS. BED IS IN LOW POSITION AND LOCKED WITH SIDE RAILS UP X 2 FOR SAFETY. CALL LIGHT WITHIN REACH. WILL CONTINUE TO MONITOR.
[2020-03-25 08:00] VITALS: BP 117/63
[2020-03-25] MEDS: CLOPIDOGREL BISULFATE 75 MG TABLET PO SCH (09:00)
[2020-03-25] MEDS: LORATADINE 10 MG TABLET PO SCH (09:00)
[2020-03-25] MEDS: DOCUSATE SODIUM 100 MG CAPSULE PO SCH (09:00)
[2020-03-25] MEDS: ENOXAPARIN SODIUM 30 MG/0.3 ML DISP.SYRIN SQ SCH (09:00)
[2020-03-25] MEDS: GABAPENTIN 300 MG CAPSULE PO SCH ×2 (09:00→17:00)
[2020-03-25] MEDS: MULTIVIT W/MINERALS 1 TAB TABLET PO SCH (09:00)
[2020-03-25] MEDS: METOPROLOL TARTRATE 25 MG TABLET PO SCH ×2 (09:00→21:00)
[2020-03-25] MEDS: FOLIC ACID 1 MG TABLET PO SCH (09:00)
[2020-03-25] MEDS ORDERED: FEE PK DOSING 1 MIN EA MC ONE (09:16)
[2020-03-25] MEDS: VANCOMYCIN 500 MG in IV D5W 100 ML IV SCH (10:05)
[2020-03-25 10:26] LABS: BASOPHILS % (AUTO) 0.3 % (0.0-2.0); EOSINOPHILS % (AUTO) 0.6 % (0.0-6.0); HEMATOCRIT 23 % (39-51); HEMOGLOBIN 7.3 g/dL (13.5-17.5); LYMPHOCYTES # (AUTO) 1.2 /CMM (0.8-4.8); LYMPHOCYTES % (AUTO) 10.8 % (20.0-44.0); MEAN CORPUSCULAR HGB CONC 32 g/dl (31.0-36.0); MEAN CORPUSCULAR VOLUME 91 fL (80-96); MONOCYTES # (AUTO) 0.6 /CMM (0.1-1.30); MONOCYTES % (AUTO) 5.2 % (2.0-12.0); NEUTROPHILS # (AUTO) 9.3 /CMM (1.8-8.9); NEUTROPHILS % (AUTO) 83.1 % (43.0-81.0); PLATELET COUNT (AUTO) 322 /CMM (150-450); RED BLOOD CELL COUNT(AUTO) 2.49 MIL/uL (4.5-6.0); WHITE BLOOD COUNT (AUTO) 11.2 K/uL (4.3-11.0)
[2020-03-25 10:38] LABS: ALANINE AMINOTRANSFERASE 6 U/L (12-78); ALBUMIN 2.1 g/dL (3.4-5.0); ALKALINE PHOSPHATASE 56 U/L (46-116); ASPARTATE AMINOTRANSFERASE 8 U/L (15-37); BILIRUBIN,TOTAL 0.2 mg/dL (0.2-1.0); CALCIUM, SERUM 8.4 mg/dL (8.5-10.1); CARBON DIOXIDE 29 mmol/L (21-32); CHLORIDE 108 mmol/L (98-107); CREATINE KINASE, TOTAL 17 U/L (39-308); CREATININE 2.2 mg/dL (0.6-1.3); GLUCOSE 113 mg/dL (74-106); MAGNESIUM 1.8 mg/dL (1.8-2.4); PHOSPHORUS 3.4 mg/dL (2.5-4.9); SODIUM SERUM 145 mmol/L (136-145); TOTAL PROTEIN, SERUM 7.4 g/dL (6.4-8.2); UREA NITROGEN, BLOOD 39 mg/dL (7-18)
[2020-03-25] MEDS: PIPERACILLIN /TAZOBACTAM 2.25 G in IV D5W 50 ML IV SCH ×3 (12:17→23:02)
[2020-03-25 16:00] VITALS: BP 106/58
--- NOTE | 2020-03-25 19:10 | NUR ---
MANAGED CARE ANALYST CLOSED NOTES PATIENT IS A/O X 1. PATIENT IS AWAKE AND ALERT WITH NO SIGNS OF DISTRESS ON 3L OF NASAL CANNULA. PATIENT IS NPO UNTIL FURTHER EVAL. IV R AC #20G WITH 75 MLS./HR NS. PATIENT REMAINED STABLE THROUGH OUT SHIFT. PATIENT KEPT CLEAN AND DRY. ALL NEEDS, CARE, TREATMENT AND MEDICATIONS ADMINISTERED ANTICIPATED PER ORDER. BED IS IN LOW POSITION AND LOCKED WITH SIDE RAILS UP X 2 FOR SAFETY. CALL LIGHT WITHIN REACH. WILL ENDORSE TO THE NEXT SLURRY PLANT OPERATOR. Addendum: 03/25/20 at 8 by KRISTINE BOLTON RN CORRECTION: MEDICATIONS WERE NOT ADMINISTERED DO TO PATIENT BEING NPO UNTIL FURTHER EVAL.
--- NOTE | 2020-03-25 19:15 | NUR ---
RN NOTES PATIENT ALYCIA, DID NOT ANSWER THE PHONE TO GIVE CONSENT FOR BLOOD TRANSFUSION. CONSENT ENDORSED TO THE SECOND RIDE FARE COLLECTOR NURSE.
--- NOTE | 2020-03-25 19:19 | NUR ---
TELE/RN OPENING NOTES RECEIVED PATIENT IN BED, AWAKE, OPENS EYES, HOB ELEVATED, ON OXYGEN VIA NC AT 3 LITER, RESPIRATIONS EVEN AND UNLABORED, SUCTION NEEDED, TELE WITH SR AT ST 110, ABLE TO URINATE BUT INCONTINENT, SKIN WITH SOME REDNESS IN BUTTOCKS REQUIRE TO APPLY MEPILEX FOR PROTECTION, NPO AT THIS TIME PER MD, FAMILY REFUSE AND DO NOT WANT NGT AT THIS TIME REPORTED, IV NS AT 75 ML RUNNING , IV SITE RIGHT AC GAUGE 20 PATENT, MONITOR FOR ANY S/S OF BLEEDING, AND ANY HYPOGLYCEMIA, PER MD TO MONITOR HGB LEVEL AND TO ASK FAMILY FOR CONSENT FOR STAND BY BLOOD TRANSFUSION WHEN NEEDED, TO MONITOR, BED LOCKED, CALL LIGHTS WITHIN [facility]. WILL MONITOR,
[2020-03-25 20:00] VITALS: BP 118/59
--- NOTE | 2020-03-25 20:00 | NUR ---
TELE/RN NOTES RECEIVED VERBAL CONSENT FROM ALYCIA THE , FOR BLOOD TRANSFUSION CONSENT. MD ECKERT INFORMED AND HAVE SIGNED FORM.
[2020-03-25] MEDS: AMITRIPTYLINE HCL 25 MG TABLET PO SCH (21:05)
[2020-03-25] MEDS: ATORVASTATIN 10 MG TABLET PO SCH (21:05)
--- NOTE | 2020-03-25 23:00 | NUR ---
TELE/RN NOTES PATIENT TO START FOR BLOOD TRANSFUSION, AWAKE, OPENS EYES, REQUIRE ASSISTANCE, VITAL SIGNS CHECK AND SKIN WARM TO TOUCH.
[2020-03-26] VITALS (11 sets, daily range): BP systolic 98–145; BP diastolic 51–98
--- NOTE | 2020-03-26 00:21 | NUR ---
BLOOD PRBC RECEIVED FROM LAB AND VERIFIED BY LAB [facility]IL[facility] CO WITNESSED BLOOD PRODUCT CONSENT SIGNED BY , BLOOD TYPE CHECK, VITAL SIGNS PRELIMINARY, IV SITE PATENT.
--- NOTE | 2020-03-26 00:32 | NUR ---
ONE PRBC BLOOD TRANSFUSION STARTED , SAFETY MEASURES FOLLOWED, VITAL SIGNS CHECK BEFORE AND MONITOIRNG FOR ANY CHANGES,.IV SITE ON RIGHT AC GAUGE 20 PATENT.
--- NOTE | 2020-03-26 03:45 | NUR ---
BLOOD TRANSFUSION OF ONE PRBC ENDED, PATIENT AWAKE, , RESPIRATIONS EVEN AND UNLABORED, VITAL SIGNS CHECKED WITHIN NORMAL RANGE.PATIENT TOLERATED WELL. WITH NO S/S OF ADVERSE REACTION.
[2020-03-26] MEDS: IV NS 0.9% 1,000 ML IV PRN ×2 (04:03→20:12)
[2020-03-26] MEDS: PIPERACILLIN /TAZOBACTAM 2.25 G in IV D5W 50 ML IV SCH ×3 (05:01→17:31)
[2020-03-26] MEDS: BLOOD SUGAR DIAGNOSTIC 1 EACH STRIP IN SCH ×4 (06:05→21:10)
--- NOTE | 2020-03-26 06:23 | NUR ---
325-1 TELE/RN NOTES PATIENT ALERT X1-2, ON OXYGEN VIA NC AT 3 LITER, ATTENDED ALL NEEDS, S/P BLOOD TRANSFUSION, VITAL SIGNS WITHIN NORMAL PARAMETERS, KEPT SKIN INTACT AND DRY, REPOSIITONED, ON NPO STATUS, FAMILY INVOLVED. SAFETY PRECAUTIONS FOLLOWED AND PRACTICED BED LOCKED, CALL LIGHTS WITHIN REACH. MONITORED FOR ANY CHANGES. WILL ENDORSE TO AM RN FOR RACHAEL.
--- NOTE | 2020-03-26 07:15 | NUR ---
RN OPENING NOTE: Received patient in bed and asleep. Appears comfortable and relaxed. On cont o2 via NC @ 3lpm being tolerated well. No SOB and not in respiratory distress. Tele monitor showing Sinus Tachycardia at 104. No pain noted on patient. Iv site clean, dry, patent and intact. IV infusion on NS @ 75mls/hr. Patient reported to be non compliant with IV infusion and oxygen use at times.Call light in reach, bed locked, low and at semi-kinsey's position. Side rails up x3. Safety ensured and observed. Will continue to monitor.
[2020-03-26] MEDS: PANTOPRAZOLE 40 MG TABLET.DR PO SCH (07:30)
[2020-03-26 09:37] LABS: CALCIUM, SERUM 9.2 mg/dL (8.5-10.1); CARBON DIOXIDE 23 mmol/L (21-32); CHLORIDE 108 mmol/L (98-107); CREATININE 2.3 mg/dL (0.6-1.3); GLUCOSE 108 mg/dL (74-106); PHOSPHORUS 3.9 mg/dL (2.5-4.9); POTASSIUM 4.8 mmol/L (3.5-5.1); SODIUM SERUM 146 mmol/L (136-145); UREA NITROGEN, BLOOD 37 mg/dL (7-18)
[2020-03-26 09:45] LABS: BASOPHILS % (AUTO) 0.4 % (0.0-2.0); EOSINOPHILS % (AUTO) 0.3 % (0.0-6.0); HEMATOCRIT 33 % (39-51); HEMOGLOBIN 10.3 g/dL (13.5-17.5); LYMPHOCYTES # (AUTO) 1.2 /CMM (0.8-4.8); LYMPHOCYTES % (AUTO) 9.8 % (20.0-44.0); MEAN CORPUSCULAR HGB CONC 31 g/dl (31.0-36.0); MEAN CORPUSCULAR VOLUME 96 fL (80-96); MONOCYTES # (AUTO) 0.7 /CMM (0.1-1.30); MONOCYTES % (AUTO) 5.6 % (2.0-12.0); NEUTROPHILS # (AUTO) 10.4 /CMM (1.8-8.9); NEUTROPHILS % (AUTO) 83.9 % (43.0-81.0); PLATELET COUNT (AUTO) 338 /CMM (150-450); RED BLOOD CELL COUNT(AUTO) 3.42 MIL/uL (4.5-6.0); WHITE BLOOD COUNT (AUTO) 12.4 K/uL (4.3-11.0)
[2020-03-26] MEDS: FOLIC ACID 1 MG TABLET PO SCH (10:00)
[2020-03-26] MEDS: CLOPIDOGREL BISULFATE 75 MG TABLET PO SCH (10:00)
[2020-03-26] MEDS: GABAPENTIN 300 MG CAPSULE PO SCH ×2 (10:00→17:12)
[2020-03-26] MEDS: DOCUSATE SODIUM 100 MG CAPSULE PO SCH (10:00)
[2020-03-26] MEDS: METOPROLOL TARTRATE 25 MG TABLET PO SCH ×2 (10:00→20:58)
[2020-03-26] MEDS: LORATADINE 10 MG TABLET PO SCH (10:00)
[2020-03-26] MEDS: MULTIVIT W/MINERALS 1 TAB TABLET PO SCH (10:00)
[2020-03-26] MEDS: VANCOMYCIN 500 MG in IV D5W 100 ML IV SCH (10:33)
[2020-03-26 11:21] LABS: PTH, INTACT 37 pg/mL (15-65)
[2020-03-26] MEDS: ENOXAPARIN SODIUM 30 MG/0.3 ML DISP.SYRIN SQ SCH (11:21)
[2020-03-26 14:09] LABS: *SPE A/G RATIO 0.5 (0.7-1.7); *SPE ALBUMIN 2.2 g/dL (2.9-4.4); *SPE ALPHA-1-GLOBULIN 0.3 g/dL (0.0-0.4); *SPE ALPHA-2-GLOBULIN 1.2 g/dL (0.4-1.0); *SPE GLOBULIN, TOTAL 4.2 g/dL (2.2-3.9); *SPE M-SPIKE Not Observed g/dL (Not Observed); *SPEGAMMA GLOBULIN 1.6 g/dL (0.4-1.8)
[2020-03-26] MEDS: ENSURE ENLIVE CHOC 237 ML CAN PO SCH (17:32)
--- NOTE | 2020-03-26 19:28 | NUR ---
RN CLOSING NOTE: Patient remains in bed. Awake, alert and oriented x4. Appears comfortable and relaxed. On cont o2 via NC @ 3lpm being tolerated well. No SOB and not in respiratory distress. Tele monitor showing Sinus rhythm @ 90s. No pain noted on patient. Iv site clean, dry, patent and intact. IV infusion on NS @ 75mls/hr. Patient noted to be non compliant with IV infusion and oxygen use at times. Swallow eval done today, diet advanced to Puree with NTL with special instructions outlined by speech therapist. PT eval not tolerated earlier on shift. Family is aware of progress. Patient was seen by Dr. Lock earlier and was informed of family requests to speak to her. Call light in reach, bed locked, low and at semi-kinsey's position. Side rails up x3. Safety ensured and observed. Endorsed to [facility] for RACHAEL.
--- NOTE | 2020-03-26 20:00 | NUR ---
TELE/RN OPENING NOTE Patient awake in bed. A/O x1. Breathing even, unlabored. Nasal cannula @ 3 l/min, O2 saturation 100%. No signs of SOB or acute distress. Tele monitor sinus rhythm, heart rate in the 80's. IV site RAC 20g running NS @ 75 ml/hr. IV site patent, intact. Bed in low position, wheels locked, side rails up x2, call light within reach.
[2020-03-26] MEDS: AMITRIPTYLINE HCL 25 MG TABLET PO SCH (21:10)
[2020-03-26] MEDS: ATORVASTATIN 10 MG TABLET PO SCH (21:10)
[2020-03-26] MEDS: INSULIN REGULAR, HUMAN 100 UNIT/ML 3 ML VIAL SQ PRN (21:15)
[2020-03-27] MEDS: PIPERACILLIN /TAZOBACTAM 2.25 G in IV D5W 50 ML IV SCH ×4 (00:32→17:02)
--- NOTE | 2020-03-27 06:45 | NUR ---
TELE/RN CLOSING NOTE Patient awake in bed. A/O x1. Breathing even, unlabored. Nasal cannula @ 3 l/min, O2 saturation 99%. No signs of SOB or acute distress. Tele monitor sinus rhythm, heart rate in the 80's. IV site RAC 20g running NS @ 75 ml/hr. Patient had 2 bowel movements soft, brown, moderate. Patient void 2x clear, yellow urine. IV site patent, intact. Bed in low position, wheels locked, side rails up x2, call light within reach.
[2020-03-27] MEDS: BLOOD SUGAR DIAGNOSTIC 1 EACH STRIP IN SCH ×3 (06:56→17:01)
[2020-03-27 07:31] LABS: BASOPHILS % (AUTO) 0.2 % (0.0-2.0); EOSINOPHILS % (AUTO) 1.5 % (0.0-6.0); HEMATOCRIT 30 % (39-51); HEMOGLOBIN 9.7 g/dL (13.5-17.5); MEAN CORPUSCULAR HGB CONC 32 g/dl (31.0-36.0); MEAN CORPUSCULAR VOLUME 92 fL (80-96); MONOCYTES # (AUTO) 0.6 /CMM (0.1-1.30); MONOCYTES % (AUTO) 5.7 % (2.0-12.0); NEUTROPHILS # (AUTO) 7.7 /CMM (1.8-8.9); NEUTROPHILS % (AUTO) 73.6 % (43.0-81.0); PLATELET COUNT (AUTO) 323 /CMM (150-450); RED BLOOD CELL COUNT(AUTO) 3.25 MIL/uL (4.5-6.0); WHITE BLOOD COUNT (AUTO) 10.4 K/uL (4.3-11.0)
[2020-03-27] MEDS: PANTOPRAZOLE 40 MG TABLET.DR PO SCH (07:44)
[2020-03-27] MEDS: ENSURE ENLIVE CHOC 237 ML CAN PO SCH ×3 (07:44→16:15)
[2020-03-27 07:49] LABS: CALCIUM, SERUM 8.7 mg/dL (8.5-10.1); CARBON DIOXIDE 25 mmol/L (21-32); CHLORIDE 109 mmol/L (98-107); CREATININE 2.3 mg/dL (0.6-1.3); GLUCOSE 99 mg/dL (74-106); MAGNESIUM 1.8 mg/dL (1.8-2.4); PHOSPHORUS 3.3 mg/dL (2.5-4.9); POTASSIUM 4.3 mmol/L (3.5-5.1); SODIUM SERUM 144 mmol/L (136-145); UREA NITROGEN, BLOOD 35 mg/dL (7-18)
[2020-03-27 08:00] VITALS: BP 117/54
--- NOTE | 2020-03-27 08:00 | NUR ---
Tele/RN - Assessment Patient is awake, alert to self, tele shows SR, no s/s of pain at this time, no apparent distress, uses supplemental oxygen 3lpm via NC. IVF NS at 75 ml/hr infusing well on the RAC with no signs of infiltration. Morning labs reviewed, no critical results seen. Fall and aspiration precautions maintained. Will continue with current medical management.
[2020-03-27 08:30] VITALS: BP 117/54
[2020-03-27] MEDS: CLOPIDOGREL BISULFATE 75 MG TABLET PO SCH (08:30)
[2020-03-27] MEDS: DOCUSATE SODIUM 100 MG CAPSULE PO SCH (08:30)
[2020-03-27] MEDS: LORATADINE 10 MG TABLET PO SCH (08:30)
[2020-03-27] MEDS: METOPROLOL TARTRATE 25 MG TABLET PO SCH (08:30)
[2020-03-27] MEDS: MULTIVIT W/MINERALS 1 TAB TABLET PO SCH (08:30)
[2020-03-27] MEDS: FOLIC ACID 1 MG TABLET PO SCH (08:30)
[2020-03-27] MEDS: GABAPENTIN 300 MG CAPSULE PO SCH ×2 (08:30→16:15)
[2020-03-27] MEDS: ENOXAPARIN SODIUM 30 MG/0.3 ML DISP.SYRIN SQ SCH (08:31)
[2020-03-27] MEDS: VANCOMYCIN 500 MG in IV D5W 100 ML IV SCH (10:20)
[2020-03-27] MEDS: IV NS 0.9% 1,000 ML IV PRN (10:34)
--- NOTE | 2020-03-27 11:00 | NUR ---
MS/RN - Notes DC telemetry and transfer to med-surg with same orders.
[2020-03-27] MEDS: INSULIN REGULAR, HUMAN 100 UNIT/ML 3 ML VIAL SQ PRN (11:55)
[2020-03-27] MEDS ORDERED: CLOP75TA15 PO (14:10)
--- NOTE | 2020-03-27 18:25 | NUR ---
MS/RN - Discharge Patient is alert to self, feeling better, discharged to [facility] in stable condition. Reviewed discharge instructions with BEST Akers ([phone]) and she verbalized full understanding and all questions answered to her satisfaction. All belongings sent with patient. VSS, no s/s of pain, afebrile, no apparent distress seen. No fall/injury during hospital stay. Patient refused discharge photo, skin is intact. Saline lock removed on the LAC with catheter tip intact, no redness, no swelling at the site. Discharge papers sent with ambulance crew. Family aware of discharge and in agreement. Endorsed accordingly.
== END 2020-03-27 19:00 | DRG 689 ==
LOC: ER 19:46 → MEDSG2 21:38 → MED 22:12 → TELE 23:30 → MED 03-27 11:50
PROVIDERS: ADMIT Nurse Practitioner Acute Care; ATTEND Student in an Organized Health Care Education/Training Program
PROC: 30233N1 Transfusion of Nonautologous Red Blood Cells into Peripheral Vein, Percutaneous Approach (ICD-10-PCS; principal; 2020-03-25)
DX: N39.0 Urinary tract infection, site not specified (principal); N17.0 Acute kidney failure with tubular necrosis; G93.41 Metabolic encephalopathy; R53.2 Functional quadriplegia; D68.59 Other primary thrombophilia; E87.2 Acidosis; G81.90 Hemiplegia, unspecified affecting unspecified side; N10 Acute pyelonephritis; R62.7 Adult failure to thrive; Z66 Do not resuscitate; I50.9 Heart failure, unspecified; I25.10 Atherosclerotic heart disease of native coronary artery without angina pectoris; I11.0 Hypertensive heart disease with heart failure; E11.51 Type 2 diabetes mellitus with diabetic peripheral angiopathy without gangrene; E78.00 Pure hypercholesterolemia, unspecified; D64.9 Anemia, unspecified; E78.5 Hyperlipidemia, unspecified; F02.80 Dementia in other diseases classified elsewhere, unspecified severity, without behavioral disturbance, psychotic disturbance, mood disturbance, and anxiety; Z95.1 Presence of aortocoronary bypass graft; Z79.84 Long term (current) use of oral hypoglycemic drugs; Z79.02 Long term (current) use of antithrombotics/antiplatelets; Z79.899 Other long term (current) drug therapy; G40.909 Epilepsy, unspecified, not intractable, without status epilepticus; Z79.4 Long term (current) use of insulin; Z79.51 Long term (current) use of inhaled steroids; J44.9 Chronic obstructive pulmonary disease, unspecified; G20 Parkinson's disease; E86.0 Dehydration; N13.9 Obstructive and reflux uropathy, unspecified; Y95 Nosocomial condition; B95.2 Enterococcus as the cause of diseases classified elsewhere
CPT/HCPCS: 36415; 70450-TC; 71045-TC; 76770-TC; 80048-TC; 80053-TC; 80061-TC; 80202-TC; 81000-TC; 82247-TC; 82248-TC; 82550-TC; 82570-TC; 82962-TC; 83540-TC; 83605-TC; 83735-TC; 83970; 84100-TC; 84155; 84155-TC; 84165; 84300-TC; 85025-TC; 86850-TC; 86921-TC; 87081-TC; 87086-TC; 87186-TC; 92526; 92611-TC; 97530-TC; A6253; G0378; J1650; J1815; J2543; J3370; J7030; J7042; J7050; J7060; P9016-BL